=== PATIENT | female | born 1980 ===

== ENCOUNTER 2017-01-31 17:55 | Emergency (ER) | payer OTHER ==
[2017-01-31 18:13] VITALS: PULSE 80; BMI 23.6
[2017-01-31 18:58] LABS: RBC URINE < 1 /hpf (0-3); URINE BILIRUBIN NEGATIVE (NEGATIVE); URINE BLOOD NEGATIVE (NEGATIVE); URINE COLOR Yellow (YELLOW); URINE GLUCOSE (UA) NORMAL (Normal); URINE KETONE NEGATIVE (NEGATIVE); URINE LEUKOCYTE ESTERASE NEG Leu/uL (Negative); URINE PROTEIN NEGATIVE (NEGATIVE); URINE UROBILINOGEN NORMAL mg/dL (0.2-1.0); WBC URINE 1 /hpf (0-5)
--- NOTE | 2017-01-31 19:50 | C.PDOC ---
History Of Present Illness A 37 y/o female c/o headache for 3 months. Pt notes having vertigo yesterday. Pt reports nausea and palpitations but denies fever, chills, head trauma, visual changes, photophobia, or any other complaints. Time Seen by Provider: 01/31/17 19:40 Chief Complaint (Nursing): Headache History Per: Patient History/Exam Limitations: no limitations Onset/Duration Of Symptoms: Days Current Symptoms Are (Timing): Still Present Severity: Mild Associated Symptoms: Nausea, Other (Vertigo). denies: Photophobia, Blurred Vision Recent travel outside of the [place]: No Additional History Per: Patient Past Medical History Reviewed: Historical Data, Nursing Documentation, Vital Signs Vital Signs: Last Vital Signs Temp 98.6 F 01/31/17 18:12 Pulse 80 01/31/17 18:12 Resp 18 01/31/17 18:12 BP 110/54 L 01/31/17 18:12 Pulse Ox 100 01/31/17 21:05 - Medical History PMH: Anemia, Migraine Surgical History: Appendectomy, Cholecystectomy Family History: States: Unknown Family Hx - Social History Hx Alcohol Use: No Hx Substance Use: No - Immunization History Hx Tetanus Toxoid Vaccination: No Hx Influenza Vaccination: No Hx Pneumococcal Vaccination: No Review Of Systems Except As Marked, All Systems Reviewed And Found Negative. Constitutional: Negative for: Fever, Chills, Other (Head trauma) Eyes: Negative for: Vision Change, Other (Photophobia) Cardiovascular: Positive for: Palpitations Gastrointestinal: Positive for: Nausea Neurological: Positive for: Headache, Other (V) Physical Exam - Physical Exam Appears: Non-toxic, No Acute Distress Skin: Warm, Dry Head: Atraumatic, Normacephalic Eye(s): bilateral: Other (lateral nystagmus) Oral Mucosa: Moist Throat: Normal, No Exudate Neck: Supple Chest: Symmetrical Cardiovascular: Rhythm Regular, No Murmur Respiratory: Normal Breath Sounds, No Accessory Muscle Use, No Rales, No Rhonchi , No Wheezing Gastrointestinal/Abdominal: Soft, No Tenderness Neurological/Psych: Oriented x3, Normal Speech, Normal Motor, Normal Sensation, Other (No focal deficit) ED Course And Treatment - Laboratory Results Result Diagrams: 01/31/17 19:59 01/31/17 19:59 ECG: Interpreted By Me, Viewed By Me ECG Rhythm: Sinus Rhythm ECG Interpretation: Normal, No Acute Changes Interpretation Of ECG: NSR, normal tracings. Rate From EC O2 Sat by Pulse Oximetry: 100 (RA) Pulse Ox Interpretation: Normal - CT Scan/US CT Head w/o contrast Other Rad Studies (CT/US): Interpreted By Me, Read By Radiologist CT/US Interpretation: EXAM: CT Head Without Intravenous Contrast. CLINICAL HISTORY: 37 years old, female; Signs and symptoms; Other: Vertigo; Additional info: Headache. TECHNIQUE: Axial computed tomography images of the head/brain without intravenous contrast. This CT exam. was performed using one or more of the following dose reduction techniques: automated exposure. control, adjustment of the mA and/or kV according to patient size, and/or use of iterative. reconstruction technique. EXAM DATE/TIME: Exam ordered 01/31/2017 7: 47 PM. COMPARISON: No relevant prior studies available. FINDINGS: Brain: Tiny calcification is noted in the right basal ganglia. No hemorrhage. No significant white. matter disease. No edema. Ventricles: Unremarkable. No ventriculomegaly. Bones/joints: Unremarkable. No acute fracture. Soft tissues : Unremarkable. Sinuses: There is an air-fluid level noted within the left maxillary sinus. Mucosal thickening is noted. in the right sphenoid sinus. Mastoid air cells: Unremarkable as visualized. No mastoid effusion. IMPRESSION : 1. Normal CT brain. 2 Acute left maxillary sinusitis. Chronic sinusitis of the right sphenoid Medical Decision Making Medical Decision Making: Impression: 37 y/o female c/o headache for 3 months Plans: CT Head, EKG, Toradol, Ativan, Antivert, IV fluids, reassess Disposition Counseled Patient/Family Regarding: Diagnosis - Disposition Referrals: [facility] at [facility] [Outside] Disposition: HOME/ ROUTINE Disposition Time: 20:47 Condition: STABLE Prescriptions: Amoxicillin [Amoxil 500 mg Cap] 500 mg PO TID #20 cap Meclizine [Antivert] 12.5 mg PO TID #20 tab Naproxen [Naprosyn Tab] 375 mg PO TIDPC #20 tab Instructions: Sinusitis (ED), Vertigo (ED), General Headache (ED) Forms: Gen Discharge Inst Japanese Print Language: UKRAINIAN - POA Present On Arrival: None - Clinical Impression Clinical Impression: Headache, Sinusitis, Vertigo - Scribe Statement The provider has reviewed the documentation as recorded by the Ludaibmaxwell morrissey All medical record entries made by the Ludaibmaxwell were at my direction and personally dictated by me. I have reviewed the chart and agree that the record accurately reflects my personal performance of the history, physical exam, medical decision making, and the department course for this patient. I have also personally directed, reviewed, and agree with the discharge instructions and disposition.
[2017-01-31 20:09] LABS: BASO # 0.1 K/uL (0.0-0.2); BASO % 1.1 % (0.0-2.0); EOS # 0.1 K/uL (0.0-0.7); EOS % 1.7 % (0.0-4.0); HEMATOCRIT 29.7 % (34.0-47.0); LYMPH # 2.2 K/uL (1.0-4.3); LYMPH % 37.9 % (20.0-40.0); MEAN CELL VOLUME 71.4 fL (81.0-99.0); MEAN CORPUSCULAR HEMOGLOBIN 22.4 pg (27.0-31.0); MEAN CORPUSCULAR HGB CONC 31.3 g/dL (33.0-37.0); MEAN PLATELET VOLUME 8.4 fL (7.2-11.7); MONO # 0.5 K/uL (0.0-0.8); MONO % 7.8 % (0.0-10.0); RED CELL DISTRIBUTION WIDTH 17.4 % (11.5-14.5); WHITE BLOOD COUNT 5.8 K/uL (4.8-10.8)
[2017-01-31 20:11] LABS: CHLORIDE 101 mmol/L (98-107)
[2017-01-31 20:12] LABS: POTASSIUM 3.7 mmol/L (3.6-5.2); SODIUM 136 mmol/L (132-148)
[2017-01-31 20:14] LABS: ALB/GLOB RATIO 1.3 (1.0-2.1); ALKALINE PHOSPHATASE 64 U/L (38-126); AST/SGOT 23 U/L (14-36); BILIRUBIN,TOTAL 0.9 mg/dL (0.2-1.3); CARBON DIOXIDE 27 mmol/L (22-30); GFR AFRICAN-AMERICAN > 60; TOTAL PROTEIN 7.2 g/dL (6.3-8.3)
[2017-01-31 20:15] LABS: ALT/SGPT 27 U/L (9-52); BLOOD UREA NITROGEN 13 mg/dL (7-17); GLUCOSE,RANDOM 85 mg/dL (65-105)
--- NOTE | 2017-01-31 20:43 | CT ---
EXAM: CT Head Without Intravenous Contrast CLINICAL HISTORY: 37 years old, female; Signs and symptoms; Other: Vertigo; Additional info: Headache TECHNIQUE: Axial computed tomography images of the head/brain without intravenous contrast. This CT exam was performed using one or more of the following dose reduction techniques: automated exposure control, adjustment of the mA and/or kV according to patient size, and/or use of iterative reconstruction technique. EXAM DATE/TIME: Exam ordered 01/31/2017 7:47 PM COMPARISON: No relevant prior studies available. FINDINGS: Brain: Tiny calcification is noted in the right basal ganglia. No hemorrhage. No significant white matter disease. No edema. Ventricles: Unremarkable. No ventriculomegaly. Bones/joints: Unremarkable. No acute fracture. Soft tissues: Unremarkable. Sinuses: There is an air-fluid level noted within the left maxillary sinus. Mucosal thickening is noted in the right sphenoid sinus. Mastoid air cells: Unremarkable as visualized. No mastoid effusion. IMPRESSION: 1. Normal CT brain 2 Acute left maxillary sinusitis. Chronic sinusitis of the right sphenoid
[2017-01-31] MEDS ORDERED: Amoxicillin-Clav 500-125 mg Tab PO ONE (21:10)
[2017-01-31 21:17] VITALS: BP 110/60; RESP 14; TEMP 98.5; O2SAT 98
--- NOTE | 2017-02-01 19:20 | CARD ---
APPROVED REPORT EKG Measurement Heart [id number] <Conclusion> Normal sinus rhythm Normal ECG
== END 2017-01-31 21:17 | disposition home or self-care (01) ==
LOC: C.ER 17:55
DX: J01.00 Acute maxillary sinusitis, unspecified (principal); J32.3 Chronic sphenoidal sinusitis
CPT/HCPCS: 70450; 80053; 81001; 82948; 84484; 84703; 85025; 93005; 96374; 96375; 99285; J1885; J2060

== ENCOUNTER 2017-03-13 23:21 | Emergency (ER) | payer SELFPAY ==
[2017-03-13 23:22] VITALS: BMI 23.6
[2017-03-13 23:39] VITALS: RESP 16
[2017-03-13] MEDS ORDERED: Sodium Chloride 0.9% 1,000 ML IV ONE (23:45)
[2017-03-13] MEDS ORDERED: Iohexol 240 (50 ml) PO ONE (23:46)
[2017-03-13 23:56] LABS: BASO # 0.1 K/uL (0.0-0.2); BASO % 1.3 % (0.0-2.0); EOS # 0.1 K/uL (0.0-0.7); EOS % 1.9 % (0.0-4.0); HEMOGLOBIN 9.8 g/dL (11.0-16.0); LYMPH # 2.5 K/uL (1.0-4.3); LYMPH % 39.4 % (20.0-40.0); MEAN CELL VOLUME 71.3 fL (81.0-99.0); MEAN CORPUSCULAR HEMOGLOBIN 22.1 pg (27.0-31.0); MEAN PLATELET VOLUME 8.4 fL (7.2-11.7); MONO # 0.6 K/uL (0.0-0.8); MONO % 9.5 % (0.0-10.0); NEUT # 3.1 K/uL (1.8-7.0); NEUT % 47.9 % (50.0-75.0); NRBC % 0.1 % (0.0-2.0); RBC 4.44 Mil/uL (3.80-5.20); RED CELL DISTRIBUTION WIDTH 16.9 % (11.5-14.5); WHITE BLOOD COUNT 6.4 K/uL (4.8-10.8)
[2017-03-13 23:59] LABS: HCG,QUALITATIVE URINE NEGATIVE (NEGATIVE)
[2017-03-14 00:02] LABS: SQUAMOUS EPITHIAL 12 /hpf (0-5); URINE BACTERIA MANY (<OCC); URINE BILIRUBIN 1+ (NEGATIVE); URINE BLOOD 3+ (NEGATIVE); URINE CLARITY Hazy (Clear); URINE COLOR Amber (YELLOW); URINE GLUCOSE (UA) NORMAL (Normal); URINE LEUKOCYTE ESTERASE 3+ Leu/uL (Negative); URINE NITRATE NEGATIVE (NEGATIVE); URINE PROTEIN 2+ mg/dL (NEGATIVE); URINE UROBILINOGEN NORMAL mg/dL (0.2-1.0)
[2017-03-14] MEDS ORDERED: Iohexol 240 (50 ml) ONE (00:02)
[2017-03-14] MEDS ORDERED: Sodium Chloride 0.9% 1,000 ML ONE (00:02)
--- NOTE | 2017-03-14 00:11 | C.PDOC ---
History Of Present Illness Patient is a 37 y/o female, with history of ovarian cyst, that presents to the ED for evaluation of severe lower abdominal pain associated with nausea, vomiting, and dysuria for the last 7 days. Otherwise, denies any diarrhea, hematuria, back pain, fever, chills, or any other associated symptoms at this time. Chief Complaint (Nursing): Abdominal Pain History Per: Patient History/Exam Limitations: no limitations Onset/Duration Of Symptoms: Days (7) Current Symptoms Are (Timing): Still Present Severity: Severe Location Of Pain/Discomfort: RLQ, LLQ Radiation Of Pain To:: None Quality Of Discomfort: "Pain" Associated Symptoms: Nausea, Vomiting, Urinary Symptoms (dysuria). denies: Fever, Chills, Diarrhea, Loss Of Appetite, Back Pain, Chest Pain, Constipation Exacerbating Factors: None Alleviating Factors: None Recent travel outside of the [place]: No Additional History Per: Patient Abnormal Vaginal Bleeding: No Past Medical History Reviewed: Historical Data, Nursing Documentation, Vital Signs Vital Signs: Last Vital Signs Temp 98.4 F 03/13/17 23:33 Pulse 75 03/13/17 23:33 Resp 16 03/13/17 23:33 BP 105/69 03/13/17 23:33 Pulse Ox 99 03/14/17 02:30 - Medical History PMH: Anemia, Migraine Surgical History: Appendectomy, Cholecystectomy Family History: States: Unknown Family Hx - Social History Hx Alcohol Use: No Hx Substance Use: No - Immunization History Hx Tetanus Toxoid Vaccination: No Hx Influenza Vaccination: No Hx Pneumococcal Vaccination: No Review Of Systems Except As Marked, All Systems Reviewed And Found Negative. Constitutional: Negative for: Fever, Chills Gastrointestinal: Positive for: Nausea, Vomiting, Abdominal Pain. Negative for : Diarrhea, Constipation, Hematemesis Genitourinary: Positive for: Dysuria. Negative for: Frequency, Incontinence, Hematuria Musculoskeletal: Negative for: Back Pain Physical Exam - Physical Exam Appears: Non-toxic, No Acute Distress Skin: Normal Color, Warm, Dry Head: Atraumatic, Normacephalic Eye(s): bilateral: Normal Inspection, EOMI Chest: Symmetrical Cardiovascular: Rhythm Regular, No Murmur Respiratory: Normal Breath Sounds, No Rales, No Rhonchi, No Wheezing Gastrointestinal/Abdominal: Soft, Tenderness (RLQ, LLQ), No Distention, No Guarding, No Rebound Extremity: Normal ROM Neurological/Psych: Oriented x3, Normal Speech, Normal Cognition ED Course And Treatment - Laboratory Results Result Diagrams: 03/13/17 23:53 03/13/17 23:53 O2 Sat by Pulse Oximetry: 99 (on RA) Pulse Ox Interpretation: Normal - CT Scan/US Abd & pelvis CT Other Rad Studies (CT/US): Read By Radiologist, Radiology Report Reviewed CT/US Interpretation: FINDINGS: Lower thorax: No acute findings. ABDOMEN: Liver: Small cyst in the dome of the right hepatic lobe. Gallbladder and bile ducts: Cholecystectomy. No ductal dilation. Pancreas: Unremarkable. No mass. No ductal dilation. Spleen: Unremarkable. No splenomegaly. Adrenals: Unremarkable. No mass. Kidneys and ureters: Small cyst in the upper pole left kidney. No hydronephrosis. Stomach and bowel: Moderate fecal retention in the right and transverse colon consistent with. constipation. Appendix: Not seen. PELVIS: Bladder: Unremarkable. No mass. Reproductive: Probable fibroid in the anterior uterus. ABDOMEN and PELVIS: Intraperitoneal space: Unremarkable. No free air. No significant fluid collection. Bones/joints: No acute fracture. No dislocation. Soft tissues: Unremarkable. Vasculature: Unremarkable. No abdominal aortic aneurysm. Lymph nodes: Unremarkable. No enlarged lymph nodes. IMPRESSION: Moderate fecal retention in the right and transverse colon consistent with constipation. Progress Note: Blood work, urinalysis, Abd & pelvis CT ordered and reviewed. Patient was treated with Iohexol, Toradol, and IV fluids in the ER. Disposition Counseled Patient/Family Regarding: Diagnosis - Disposition Referrals: [facility] [Outside] Disposition: HOME/ ROUTINE Disposition Time: 02:26 Condition: STABLE Prescriptions: Ciprofloxacin [Cipro] 1 tab PO BID #14 tab Phenazopyridine HCl [Pyridium] 200 mg PO TID #20 tablet Instructions: Urinary Tract Infection in Women (GEN), Abdominal Pain (ED), Uterine Fibroids (ED) Forms: Gen Discharge Inst Nepali Print Language: YI - POA Present On Arrival: None - Clinical Impression Clinical Impression: Abdominal pain, Urinary tract infection, Uterine fibroid - Scribe Statement The provider has reviewed the documentation as recorded by the Meaghan Pruitt All medical record entries made by the Ludaibmaxwell were at my direction and personally dictated by me. I have reviewed the chart and agree that the record accurately reflects my personal performance of the history, physical exam, medical decision making, and the department course for this patient. I have also personally directed, reviewed, and agree with the discharge instructions and disposition.
[2017-03-14 00:24] LABS: ALBUMIN 4.2 g/dL (3.5-5.0)
[2017-03-14 00:27] LABS: AST/SGOT 30 U/L (14-36); GFR AFRICAN-AMERICAN > 60; GFR NON-AFRICAN AMERICAN > 60
[2017-03-14 00:28] LABS: ALB/GLOB RATIO 1.1 (1.0-2.1); ALT/SGPT 33 U/L (9-52); BLOOD UREA NITROGEN 11 mg/dL (7-17); CALCIUM 9.2 mg/dl (8.6-10.4); LIPASE 125 U/L (23-300)
[2017-03-14] MEDS ORDERED: Iodixanol 320 MG/ML 100 ML BOTTLE IV ONE (01:09)
[2017-03-14] MEDS ORDERED: Ciprofloxacin 400mg/200ml D5W 400 MG/200 ML BAG IVPB STA (02:11)
[2017-03-14] MEDS ORDERED: Ciprofloxacin 400mg/200ml D5W 400 MG/200 ML BAG IVPB ONE (02:26)
[2017-03-14 04:21] VITALS: BP 97/62; PULSE 64; TEMP 98; O2SAT 100
--- NOTE | 2017-03-14 08:17 | CT ---
PROCEDURE: CT Abdomen and Pelvis with contrast HISTORY: lower abd pain/ tenderness COMPARISON: None. TECHNIQUE: Contrast dose: 100 mL Visipaque 320 Radiation dose: Total exam DLP = 279 mGy-cm. This CT exam was performed using one or more of the following dose reduction techniques: Automated exposure control, adjustment of the mA and/or kV according to patient size, and/or use of iterative reconstruction technique. FINDINGS: LOWER THORAX: Unremarkable. LIVER: Probable small benign cyst and/or hemangioma -posterior segment -right hepatic lobe- dome level. No ductal dilatation. GALLBLADDER AND BILE DUCTS: Cholecystectomy. No pathological dilated ducts PANCREAS: Unremarkable. No gross lesion or ductal dilatation. SPLEEN: Unremarkable. ADRENALS: Unremarkable. No mass. KIDNEYS AND URETERS: 5 mm left renal upper pole intra cortical hypodense lesion -probable cyst. No hydronephrosis. No suspicious-appearing mass. VASCULATURE: Unremarkable. No aortic aneurysm. BOWEL: Redundancy and ptosis with marked stool retention-transverse colon. No obstruction. No gross mural thickening. APPENDIX: Not definitively identified No gross pericecal inflammatory changes PERITONEUM: Unremarkable. No free fluid. No free air. LYMPH NODES: Unremarkable. No enlarged lymph nodes. BLADDER: Unremarkable. REPRODUCTIVE: Probable anterior posterior fibroids (axial series 3, image 137). BONES: No acute fracture. OTHER FINDINGS: None. IMPRESSION: Appendix not identified. No pericecal inflammatory changes Uterine fibroids - approximately 1 to 1.5 cm in size intramural to extramural of sub serosal in appearance mostly midline.This is an interval change in the initial [employer] report. Comments: Preliminary report provided by [employer]
== END 2017-03-14 04:39 | disposition home or self-care (01) ==
LOC: C.ER 23:21
DX: N39.0 Urinary tract infection, site not specified (principal); D25.9 Leiomyoma of uterus, unspecified; R10.31 Right lower quadrant pain
CPT/HCPCS: 74177; 80053; 81001; 83690; 84702; 84703; 85025; 87086; 96365; 96366; 96375; 99284; J0744; J1885; J2405; J7040; Q9966; Q9967

== ENCOUNTER 2017-03-15 00:45 | Emergency (ER) | payer SELFPAY ==
[2017-03-15 00:45] VITALS: BMI 23.6
[2017-03-15 01:48] LABS: SQUAMOUS EPITHIAL 3 /hpf (0-5); URINE AMORPHOUS SEDIMENT RARE /ul (<OCC); URINE BILIRUBIN NEGATIVE (NEGATIVE); URINE BLOOD NEGATIVE (NEGATIVE); URINE CLARITY Hazy (Clear); URINE COLOR Amber (YELLOW); URINE GLUCOSE (UA) NORMAL (Normal); URINE LEUKOCYTE ESTERASE NEG Leu/uL (Negative); URINE PROTEIN NEGATIVE (NEGATIVE)
[2017-03-15 02:05] LABS: URINE NITRATE NEGATIVE (NEGATIVE)
--- NOTE | 2017-03-15 03:38 | C.PDOC ---
History Of Present Illness 37 y/o female presents to ED for evaluation of lower abdominal pain radiating to right flank and lower back since yesterday morning. Pt reports associated nausea. Patient was seen yesterday, was diagnosed with UTI, and discharged home with prescriptions. Pt states her pain still persists despite taking prescribed medications. Otherwise, denies fever, vomiting, diarrhea, or urinary symptoms. Time Seen by Provider: 03/15/17 03:11 Chief Complaint (Nursing): Abdominal Pain History Per: Patient History/Exam Limitations: no limitations Onset/Duration Of Symptoms: Days (1) Current Symptoms Are (Timing): Still Present Location Of Pain/Discomfort: RLQ, LLQ Radiation Of Pain To:: Back, Flank Quality Of Discomfort: "Pain" Associated Symptoms: Nausea, Back Pain. denies: Fever, Chills, Vomiting, Diarrhea, Loss Of Appetite, Chest Pain, Constipation, Urinary Symptoms Exacerbating Factors: None Alleviating Factors: None Recent travel outside of the [place]: No Additional History Per: Patient Abnormal Vaginal Bleeding: No Past Medical History Reviewed: Historical Data, Nursing Documentation, Vital Signs Vital Signs: Last Vital Signs Temp 97.9 F 03/15/17 04:24 Pulse 53 L 03/15/17 04:24 Resp 18 03/15/17 04:24 BP 90/54 L 03/15/17 04:24 Pulse Ox 100 03/15/17 04:24 - Medical History PMH: Anemia, Migraine Surgical History: Appendectomy, Cholecystectomy Family History: States: Unknown Family Hx - Social History Hx Alcohol Use: No Hx Substance Use: No - Immunization History Hx Tetanus Toxoid Vaccination: No Hx Influenza Vaccination: No Hx Pneumococcal Vaccination: No Review Of Systems Except As Marked, All Systems Reviewed And Found Negative. Constitutional: Negative for: Fever, Chills Gastrointestinal: Positive for: Nausea, Abdominal Pain. Negative for: Vomiting , Diarrhea Genitourinary: Negative for: Dysuria, Frequency, Incontinence, Hematuria Musculoskeletal: Positive for: Back Pain Skin: Negative for: Rash, Bruising Neurological: Negative for: Weakness, Numbness Physical Exam - Physical Exam Appears: Non-toxic, No Acute Distress Skin: Normal Color, Warm, Dry Head: Atraumatic, Normacephalic Neck: Normal ROM, Supple Chest: Symmetrical Cardiovascular: Rhythm Regular, No Murmur Respiratory: Normal Breath Sounds, No Rales, No Rhonchi, No Wheezing Gastrointestinal/Abdominal: Soft, Tenderness (lower abdomen), No Guarding, No Rebound Back: CVA Tenderness (right), No Vertebral Tenderness, No Paraspinal Tenderness Extremity: Normal ROM Neurological/Psych: Oriented x3, Normal Speech, Normal Cognition ED Course And Treatment - Laboratory Results Result Diagrams: 03/15/17 04:00 03/15/17 04:00 O2 Sat by Pulse Oximetry: 100 Pulse Ox Interpretation: Normal Progress Note: Blood work, urinalysis ordered and reviewed. Patient was given IV fluids, Zofran, Toradol, and Rocephin. Medical Decision Making Medical Decision Makin the pt reports feeling better after rx. she is aware of her anemia. she appears well in no distress. vitals stable. ua improved will continue cipro. Disposition - Disposition Referrals: Jovita Xiao MD [Primary Care Provider] - Disposition Time: 05:24 Condition: IMPROVED Forms: Gen Discharge Inst Pakistani - Clinical Impression Clinical Impression: UTI (urinary tract infection) - Scribe Statement The provider has reviewed the documentation as recorded by the Ludaibmaxwell Pruitt All medical record entries made by the Ludaibmaxwell were at my direction and personally dictated by me. I have reviewed the chart and agree that the record accurately reflects my personal performance of the history, physical exam, medical decision making, and the department course for this patient. I have also personally directed, reviewed, and agree with the discharge instructions and disposition.
[2017-03-15] MEDS ORDERED: Sodium Chloride 0.9% 1,000 ML IV ONE (03:43)
[2017-03-15] MEDS ORDERED: cefTRIAXone IV 1 gm in Dextros 50 ML IVPB ONE (04:14)
[2017-03-15 04:16] LABS: BASO # 0.1 K/uL (0.0-0.2); BASO % 1.1 % (0.0-2.0); EOS # 0.2 K/uL (0.0-0.7); EOS % 2.9 % (0.0-4.0); HEMOGLOBIN 8.7 g/dL (11.0-16.0); LYMPH # 2.5 K/uL (1.0-4.3); MEAN CORPUSCULAR HEMOGLOBIN 22.1 pg (27.0-31.0); MEAN CORPUSCULAR HGB CONC 30.8 g/dL (33.0-37.0); MEAN PLATELET VOLUME 8.7 fL (7.2-11.7); MONO # 0.5 K/uL (0.0-0.8); MONO % 7.2 % (0.0-10.0); NEUT # 3.3 K/uL (1.8-7.0); NEUT % 50.8 % (50.0-75.0); RBC 3.91 Mil/uL (3.80-5.20); RED CELL DISTRIBUTION WIDTH 16.8 % (11.5-14.5); WHITE BLOOD COUNT 6.5 K/uL (4.8-10.8)
[2017-03-15 04:28] VITALS: RESP 18
[2017-03-15 04:31] LABS: ALBUMIN 3.5 g/dL (3.5-5.0)
[2017-03-15 04:34] LABS: GFR AFRICAN-AMERICAN > 60; GFR NON-AFRICAN AMERICAN > 60
[2017-03-15 04:35] LABS: ALB/GLOB RATIO 1.1 (1.0-2.1); ALT/SGPT 41 U/L (9-52); AST/SGOT 33 U/L (14-36); BLOOD UREA NITROGEN 13 mg/dL (7-17); CALCIUM 8.5 mg/dl (8.6-10.4)
[2017-03-15 06:09] VITALS: BP 96/60; PULSE 65; TEMP 97.7; O2SAT 99
== END 2017-03-15 06:34 | disposition home or self-care (01) ==
LOC: C.ER 00:45 → SUPCPDRO 00:45 → C.ER 06:34
DX: N39.0 Urinary tract infection, site not specified (principal)
CPT/HCPCS: 80053; 81001; 85025; 87086; 96361; 96374; 96375; 99285; J0696; J1885; J2405; J7040

== ENCOUNTER 2017-03-23 22:55 | Emergency (ER) | payer SELFPAY ==
[2017-03-23 22:55] VITALS: BMI 23.6
[2017-03-23] MEDS ORDERED: Sodium Chloride 0.9% 1,000 ML IV ONE (23:14)
[2017-03-23] MEDS ORDERED: Sodium Chloride 0.9% 1,000 ML ONE (23:26)
--- NOTE | 2017-03-23 23:27 | C.PDOC ---
History Of Present Illness 37 year old female who presents to the ER with a complaint of lower abdominal pain for the past week. Patient reports she was seen here in the ER 1 week ago for a UTI. pt states she also developed white vaginal d/c after taking antibiotics. pt states sexiually active with . Denies fever, nausea, or vomiting, diarrhea. 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 Time Seen by Provider: 03/23/17 23:09 Chief Complaint (Nursing): Abdominal Pain History Per: Patient History/Exam Limitations: no limitations Onset/Duration Of Symptoms: Days (7) Current Symptoms Are (Timing): Still Present Location Of Pain/Discomfort: Suprapubic Radiation Of Pain To:: None Quality Of Discomfort: Unable To Describe Associated Symptoms: denies: Fever, Chills, Nausea, Vomiting Exacerbating Factors: None Alleviating Factors: None Recent travel outside of the [place]: No Abnormal Vaginal Bleeding: No Past Medical History Reviewed: Historical Data, Nursing Documentation, Vital Signs Vital Signs: Last Vital Signs Temp 98.3 F 03/24/17 03:15 Pulse 64 03/24/17 03:15 Resp 16 03/24/17 03:15 BP 95/42 L 03/24/17 03:15 Pulse Ox 96 03/24/17 06:44 - Medical History PMH: Anemia, Migraine Surgical History: Appendectomy, Cholecystectomy Family History: States: Unknown Family Hx - Social History Hx Alcohol Use: No Hx Substance Use: No - Immunization History Hx Tetanus Toxoid Vaccination: No Hx Influenza Vaccination: No Hx Pneumococcal Vaccination: No Review Of Systems Constitutional: Negative for: Fever, Chills Gastrointestinal: Positive for: Abdominal Pain. Negative for: Nausea, Vomiting Physical Exam - Physical Exam Appears: Non-toxic, No Acute Distress Skin: Normal Color, Warm, Dry Head: Atraumatic, Normacephalic Oral Mucosa: Moist Chest: Symmetrical, No Tenderness Cardiovascular: Rhythm Regular, No Murmur Respiratory: Normal Breath Sounds, No Rales, No Rhonchi, No Wheezing Gastrointestinal/Abdominal: Soft, Tenderness (Mild suprapubic), No Guarding, No Rebound Pelvic: Normal External Exam, No Vaginal Bleeding, Vaginal Discharge ((+)thick white d/c), No Cervical Motion Tenderness, No Cervix Open, No Adnexal Tenderness Neurological/Psych: Oriented x3, Normal Speech, Normal Cognition ED Course And Treatment - Laboratory Results Result Diagrams: 03/23/17 23:26 03/23/17 23:26 O2 Sat by Pulse Oximetry: 96 (Room air) Pulse Ox Interpretation: Normal Progress Note: Blood work and urinalysis ordered. IV fluids administered. Medical Decision Making Medical Decision Making: lower abd pain, consider fibroids, uti, less likely appendicitis. noted previous 2 ed visits both with neg urine culture. plan: labs urine pain control, reassess. 100: pt with persistent pain, ct with IV contrast added, as previous study was non contrast. labs: no leukocytosis, h/h baseline, ua, with trace luekoctyes and squamous cells. culture sent. additional protonix and zofran given 255: pt reassesed: states pain resolved. pt hemodynamically stable, afebrile, no leukocytosis. urine culture sent, trace leuks in er, with only 8wbc. uti less likely. chlyamidia/gc sent. pelvic shows thick white d/c, suspect marisa. advise otc medications. Disposition - Disposition Referrals: Yoshi Hernandez [Staff Provider] - [facility] [Outside] [facility] [Outside] [facility] [Outside] Disposition: HOME/ ROUTINE Disposition Time: 02:56 Condition: STABLE Additional Instructions: please follow up with your doctor/clinic. you will be notified if you culture results return positive. Prescriptions: Naproxen 500 mg PO BID PRN #14 tab PRN Reason: Pain, Mild (1-3) Instructions: Uterine Fibroids (ED), Acute Abdominal Pain (ED) Print Language: TOGOLESE - Clinical Impression Clinical Impression: Abdominal pain - Scribe Statement The provider has reviewed the documentation as recorded by the Scribmaxwell Sigala All medical record entries made by the Ludaibmaxwell were at my direction and personally dictated by me. I have reviewed the chart and agree that the record accurately reflects my personal performance of the history, physical exam, medical decision making, and the department course for this patient. I have also personally directed, reviewed, and agree with the discharge instructions and disposition.
[2017-03-23 23:31] LABS: BASO # 0.1 K/uL (0.0-0.2); BASO % 1.1 % (0.0-2.0); EOS # 0.2 K/uL (0.0-0.7); EOS % 2.7 % (0.0-4.0); HEMOGLOBIN 9.5 g/dL (11.0-16.0); LYMPH # 2.7 K/uL (1.0-4.3); MEAN CELL VOLUME 71.9 fL (81.0-99.0); MEAN CORPUSCULAR HEMOGLOBIN 22.4 pg (27.0-31.0); MEAN CORPUSCULAR HGB CONC 31.2 g/dL (33.0-37.0); MEAN PLATELET VOLUME 8.9 fL (7.2-11.7); MONO # 0.5 K/uL (0.0-0.8); MONO % 6.9 % (0.0-10.0); NEUT # 3.8 K/uL (1.8-7.0); NEUT % 52.3 % (50.0-75.0); RBC 4.22 Mil/uL (3.80-5.20); RED CELL DISTRIBUTION WIDTH 16.6 % (11.5-14.5); WHITE BLOOD COUNT 7.3 K/uL (4.8-10.8)
[2017-03-23 23:37] LABS: PROTHROMBIN TIME 11.4 SECONDS (9.7-12.2)
[2017-03-23 23:41] LABS: ALBUMIN 4.1 g/dL (3.5-5.0)
[2017-03-23 23:42] LABS: SQUAMOUS EPITHIAL 9 /hpf (0-5); URINE BILIRUBIN NEGATIVE (NEGATIVE); URINE BLOOD NEGATIVE (NEGATIVE); URINE CLARITY Clear (Clear); URINE COLOR Yellow (YELLOW); URINE GLUCOSE (UA) NORMAL (Normal); URINE LEUKOCYTE ESTERASE TRACE Leu/uL (Negative); URINE NITRATE NEGATIVE (NEGATIVE); URINE PROTEIN NEGATIVE (NEGATIVE); URINE UROBILINOGEN NORMAL mg/dL (0.2-1.0)
[2017-03-23 23:43] LABS: GFR AFRICAN-AMERICAN > 60; GFR NON-AFRICAN AMERICAN > 60
[2017-03-23 23:44] LABS: ALB/GLOB RATIO 1.2 (1.0-2.1); ALT/SGPT 31 U/L (9-52); AST/SGOT 23 U/L (14-36); BLOOD UREA NITROGEN 18 mg/dL (7-17); CALCIUM 8.2 mg/dl (8.6-10.4); LIPASE 186 U/L (23-300)
[2017-03-24 01:31] VITALS: RESP 16
[2017-03-24] MEDS ORDERED: Sodium Chloride 0.9% 1,000 ML IV ONE (01:31)
[2017-03-24] MEDS ORDERED: Iodixanol 320 MG/ML 100 ML BOTTLE IV ONE (01:33)
[2017-03-24] MEDS ORDERED: Sodium Chloride 0.9% 1,000 ML ONE (01:39)
[2017-03-24 03:18] VITALS: BP 95/42; PULSE 64; TEMP 98.3
[2017-03-24 06:44] VITALS: O2SAT 96
--- NOTE | 2017-03-24 13:50 | CT ---
PROCEDURE: CT abdomen and pelvis dated 03/24/2017. HISTORY: Lower abdominal pain. Note that the scanned nurse's note indicates prior x 3 and appendectomy. COMPARISON: Comparison made with prior CT scan abdomen pelvis 03/14/2017 TECHNIQUE: Contiguous axial images of the abdomen and pelvis performed following intravenous injection of approximately 100 cc Visipaque 320 contrast material. Additional 2 dimensional sagittal and coronal reformats provided save. Radiation dose: Total exam DLP = 374.74 mGy-cm. This CT exam was performed using one or more of the following dose reduction techniques: Automated exposure control, adjustment of the mA and/or kV according to patient size, and/or use of iterative reconstruction technique. FINDINGS: LOWER THORAX: The lung bases clear. No infiltrate effusion or basilar pneumothorax. Heart size normal. Tiny hiatal hernia LIVER: The liver exhibits normal size measuring nearly 17 cm in CC dimension. Minor central intrahepatic biliary ductal dilatation. No obvious hepatic masses or collections. Portal and splenic veins are opacified. GALLBLADDER AND BILE DUCTS: Status post cholecystectomy with metallic clips again seen in the gallbladder fossa. . There is persistent dilatation of the common bile PANCREAS: No obvious pancreatic masses collections or calcifications seen. SPLEEN: Spleen exhibits normal size and attenuation pattern without mass collection or calcification. ADRENALS: No adrenal lesions. . KIDNEYS AND URETERS: Kidneys demonstrate symmetric nephrograms. No evidence of nephrolithiasis or hydronephrosis. BLADDER: Urinary bladder appears incompletely distended. No evidence of intraluminal urinary bladder calculi. . Suspect left ovarian cystic changes. Followup ultrasound could be performed confirm. . REPRODUCTIVE: Re- demonstrated are what could represent anterior uterine scarring or possibly uterine fibroids best appreciated on sagittal on and coronal sequences. Prominent endometrial canal. Suspect small bilateral involuting ovarian cystic changes and a small amount of free fluid within the cul de sac.. .Pelvic ultrasound followup could be performed further evaluation. APPENDIX: The appendix not visualized consistent with this patient's history of prior appendectomy. BOWEL: Evaluation of the bowel is limited due to the lack of oral contrast material. The the stomach is distended with food debris liquid and air. Visualized loops of small bowel exhibit relatively normal contour and caliber. No evidence of acute mechanical small bowel obstruction. . The suspect fecalized content within the small bowel suggesting stasis. Moderate moderate-large amount of stool throughout the large bowel consistent with constipation. . No definitive evidence of definitive mural wall thickening. PERITONEUM: There appears to be a small amount of free fluid within the left aspect of the pelvis. LYMPH NODES: Unremarkable. No enlarged lymph nodes. VASCULATURE: Unremarkable. No aortic aneurysm. BONES: Minor multilevel degenerative spondylosis of the lower thoracic and lumbar spine. Re- demonstrated is a small rounded lucency with thin sclerotic rim in the left posterior superior aspect of the L1 segment of uncertain etiology though unchanged from prior study. Followup interval could be performed to assess stability. OTHER FINDINGS: None. IMPRESSION: Status post cholecystectomy with dilatation of the common bile duct. Mild central intrahepatic biliary ductal dilatation. Moderate to large amount of stool seen within the colon suggesting fecal retention/constipation. Questionable anterior uterine scarring changes and/or fibroids. Prominent endometrial canal. Suspect small bilateral involuting ovarian cystic changes and a small amount of free fluid within the cul de sac. See above discussion for additional details, findings and recommendations.
== END 2017-03-24 03:27 | disposition home or self-care (01) ==
LOC: C.ER 22:55
DX: R10.30 Lower abdominal pain, unspecified (principal)
CPT/HCPCS: 74177; 80053; 81001; 83690; 84703; 85025; 85610; 85730; 87086; 87491; 87591; 96360; 96361; 96374; 96375; 99285; C9113; J1885; J2270; J2405; J7040; Q9967

== ENCOUNTER 2017-04-22 23:52 | Emergency (ER) | payer OTHER ==
[2017-04-22 23:52] VITALS: BMI 23.6
[2017-04-23] MEDS ORDERED: Sodium Chloride 0.9% 1,000 ML IV STA (01:33)
--- NOTE | 2017-04-23 01:49 | C.PDOC ---
History Of Present Illness 37 year old female who presents to the ER with a complaint of a generalized headache, lightheadedness, dizziness, nausea, and pain to her left shoulder that radiates to her chest since this morning. Patient reports she is a house and has not been doing any heavy lifting lately. Patient has a PMHx of uterine fibroids and is scheduled for a hysterectomy in 1 month. Denies vomiting , abdominal pain, or SOB. Chief Complaint (Nursing): Chest Pain History Per: Patient History/Exam Limitations: no limitations Onset/Duration Of Symptoms: Hrs Current Symptoms Are (Timing): Still Present Associated Symptoms: Nausea. denies: Dyspnea, Diaphoresis, Syncope Modifying Factors: None Exacerbating Factors: None Alleviating Factors: None Recent travel outside of the [place]: No Past Medical History Reviewed: Historical Data, Nursing Documentation, Vital Signs Vital Signs: Last Vital Signs Temp 97.2 F L 04/23/17 04:03 Pulse 74 04/23/17 04:03 Resp 22 04/23/17 04:03 BP 97/62 L 04/23/17 04:03 Pulse Ox 99 04/23/17 04:04 - Medical History PMH: Anemia, Migraine Surgical History: Appendectomy, Cholecystectomy Family History: States: Unknown Family Hx - Social History Hx Alcohol Use: No Hx Substance Use: No - Immunization History Hx Tetanus Toxoid Vaccination: No Hx Influenza Vaccination: No Hx Pneumococcal Vaccination: No Review Of Systems Constitutional: Negative for: Fever, Chills Cardiovascular: Positive for: Chest Pain, Light Headedness. Negative for: Palpitations Respiratory: Negative for: Cough, Shortness of Breath Gastrointestinal: Positive for: Nausea. Negative for: Vomiting, Abdominal Pain Musculoskeletal: Positive for: Shoulder Pain Neurological: Positive for: Headache, Dizziness Physical Exam - Physical Exam Appears: Non-toxic Skin: Normal Color, Warm, Dry Head: Atraumatic, Normacephalic Oral Mucosa: Moist Neck: Normal, Supple Chest: Symmetrical, Tenderness (Left anterior) Cardiovascular: Rhythm Regular, No Murmur Respiratory: Normal Breath Sounds, No Rales, No Rhonchi, No Wheezing Gastrointestinal/Abdominal: Soft, No Tenderness Extremity: Normal ROM (x4), Tenderness (Left shoulder) Neurological/Psych: Oriented x3, Normal Speech, Normal Cognition ED Course And Treatment - Laboratory Results Result Diagrams: 04/23/17 02:07 04/23/17 02:07 ECG: Interpreted By Me, Viewed By Dc ECG Rhythm: Sinus Rhythm ECG Interpretation: Normal Rate From EC O2 Sat by Pulse Oximetry: 99 - Radiology CXR: Interpreted by Me CXR Interpretation: Yes: No Acute Disease - CT Scan/US CT head Other Rad Studies (CT/US): Read By Radiologist, Radiology Report Reviewed CT/US Interpretation: EXAM: CT Head Without Intravenous Contrast. CLINICAL HISTORY: 37 years old, female; Pain; Headache; Patient HX: 01-31-17. TECHNIQUE: Axial computed tomography images of the head/brain without intravenous contrast. All CT scans at. this facility use one or more dose reduction techniques, viz.: automated exposure control; ma/kV. adjustment per patient size (including targeted exams where dose is matched to indication; i.e. head); . or iterative reconstruction technique. COMPARISON: A previous report dated 01/31/2017 is available for comparison. FINDINGS: Brain: Unremarkable. No hemorrhage. No significant white matter disease. No edema. Ventricles: Unremarkable. No ventriculomegaly. Bones/joints: Unremarkable. No acute fracture. Soft tissues: Unremarkable. Sinuses: Unremarkable as visualized. No acute sinusitis. Mastoid air cells: Unremarkable as visualized. No mastoid effusion. IMPRESSION: Normal head/brain CT. Thank you for allowing us to participate in the care of your patient. Dictated and Authenticated by: Jennifer Hernández MD. 04/23/2017 3:54 AM Eastern Time ([place] & [place]) Progress Note: Blood work and urinalysis ordered. Reglan and IV fluids administered. On re-evaluation patient feels better, no neuro deficit, ambulating in ED, no vomiting. Patient is stable to be d/c home with PMD follow up. Disposition - Disposition Referrals: Non [facility] Provider, [Primary Care Provider] - Disposition: HOME/ ROUTINE Disposition Time: 04:01 Condition: STABLE Additional Instructions: Follow up with PMD and OBGYN within 1-2 days. return to ED if feel worse. Prescriptions: Acetaminophen/Butalbital/Caf [Fioricet] 1 tab PO TID PRN #20 tab PRN Reason: Headache Ibuprofen [Motrin Tab] 600 mg PO Q8 #30 tab Metoclopramide [Reglan] 1 tab PO TID PRN #25 tab PRN Reason: Nausea/Vomiting Instructions: Acute Headache (ED), Chest Wall Pain (ED) Forms: [facility] (Palestinian) - Clinical Impression Clinical Impression: Headache, Chest wall pain - Scribe Statement The provider has reviewed the documentation as recorded by the Scribe Eyad Sigala All medical record entries made by the Scribe were at my direction and personally dictated by me. I have reviewed the chart and agree that the record accurately reflects my personal performance of the history, physical exam, medical decision making, and the department course for this patient. I have also personally directed, reviewed, and agree with the discharge instructions and disposition.
[2017-04-23] MEDS ORDERED: Sodium Chloride 0.9% 100 ML ONE (02:01)
[2017-04-23] MEDS ORDERED: Sodium Chloride 0.9% 1,000 ML ONE (02:01)
[2017-04-23 02:12] LABS: BASO # 0.1 K/uL (0.0-0.2); BASO % 1.1 % (0.0-2.0); EOS # 0.3 K/uL (0.0-0.7); EOS % 4.5 % (0.0-4.0); HEMATOCRIT 30.1 % (34.0-47.0); LYMPH # 2.6 K/uL (1.0-4.3); LYMPH % 36.4 % (20.0-40.0); MEAN CELL VOLUME 71.4 fL (81.0-99.0); MEAN CORPUSCULAR HEMOGLOBIN 22.2 pg (27.0-31.0); MEAN CORPUSCULAR HGB CONC 31.1 g/dL (33.0-37.0); MEAN PLATELET VOLUME 8.6 fL (7.2-11.7); MONO # 0.7 K/uL (0.0-0.8); MONO % 9.4 % (0.0-10.0); NRBC % 0.1 % (0.0-2.0); RED CELL DISTRIBUTION WIDTH 16.5 % (11.5-14.5); WHITE BLOOD COUNT 7.1 K/uL (4.8-10.8)
[2017-04-23 02:15] LABS: RBC URINE 1 /hpf (0-3); URINE BACTERIA RARE (<OCC); URINE BILIRUBIN NEGATIVE (NEGATIVE); URINE BLOOD NEGATIVE (NEGATIVE); URINE COLOR Yellow (YELLOW); URINE GLUCOSE (UA) NORMAL (Normal); URINE KETONE NEGATIVE (NEGATIVE); URINE LEUKOCYTE ESTERASE NEG Leu/uL (Negative); URINE PROTEIN NEGATIVE (NEGATIVE); URINE UROBILINOGEN NORMAL mg/dL (0.2-1.0); WBC URINE 1 /hpf (0-5)
[2017-04-23 02:19] LABS: CHLORIDE 103 mmol/L (98-107); POTASSIUM 3.5 mmol/L (3.6-5.2); SODIUM 140 mmol/L (132-148)
[2017-04-23 02:21] LABS: ALB/GLOB RATIO 1.1 (1.0-2.1); ALKALINE PHOSPHATASE 67 U/L (38-126); AST/SGOT 24 U/L (14-36); BILIRUBIN,TOTAL 1.1 mg/dL (0.2-1.3); CARBON DIOXIDE 24 mmol/L (22-30); GFR AFRICAN-AMERICAN > 60; TOTAL PROTEIN 7.2 g/dL (6.3-8.3)
[2017-04-23 02:22] LABS: ALT/SGPT 27 U/L (9-52); BLOOD UREA NITROGEN 13 mg/dL (7-17); CALCIUM 9.2 mg/dl (8.6-10.4); GLUCOSE,RANDOM 97 mg/dL (65-105)
[2017-04-23 02:24] LABS: INR 1.1; PARTIAL THROMBOPLASTIN TIME 28 SECONDS (21-34)
[2017-04-23 04:05] VITALS: PULSE 74
[2017-04-23 05:22] VITALS: BP 136/74; RESP 18; TEMP 97.3; O2SAT 96
--- NOTE | 2017-04-23 08:10 | CT ---
PROCEDURE: CT HEAD WITHOUT CONTRAST. HISTORY: headache COMPARISON: Unenhanced head CT 01/31/2017. TECHNIQUE: Axial computed tomography images were obtained through the head/brain without intravenous contrast. Radiation dose: Total exam DLP = 882 mGy-cm. This CT exam was performed using one or more of the following dose reduction techniques: Automated exposure control, adjustment of the mA and/or kV according to patient size, and/or use of iterative reconstruction technique. FINDINGS: HEMORRHAGE: No intracranial hemorrhage. BRAIN: Hunt-white matter density appears normal above and below the tentorium including throughout the brainstem with normal differentiation appreciated once again. There is no mass effect or parenchymal edema appreciated. No suspicious extra-axial collection identified. VENTRICLES: Unremarkable. No hydrocephalus. CALVARIUM: Unremarkable. PARANASAL SINUSES: Unremarkable as visualized. No significant inflammatory changes. MASTOID AIR CELLS: Unremarkable as visualized. No inflammatory changes. OTHER FINDINGS: None. IMPRESSION: Unremarkable unenhanced head CT with no significant interval change compared to prior head CT dated 01/31/2017.
--- NOTE | 2017-04-23 10:31 | RAD ---
HISTORY: left shoulder pain, radiating to chest COMPARISON: No prior. FINDINGS: LUNGS: No active pulmonary disease. PLEURA: No significant pleural effusion identified, no pneumothorax apparent. CARDIOVASCULAR: Normal. OSSEOUS STRUCTURES: No significant abnormalities. VISUALIZED UPPER ABDOMEN: Normal. OTHER FINDINGS: None. IMPRESSION: No acute cardiopulmonary disease identified.
--- NOTE | 2017-04-23 20:14 | CARD ---
APPROVED REPORT EKG Measurement Heart [id number] <Conclusion> Normal sinus rhythm Normal ECG
== END 2017-04-23 04:45 | disposition home or self-care (01) ==
LOC: SUPCPDRO 23:52 → C.ER 23:52
DX: R51 Headache (principal); R07.89 Other chest pain
CPT/HCPCS: 70450; 71010; 80053; 81001; 82550; 82553; 84484; 84703; 85025; 85378; 85610; 85730; 93005; 96365; 99285; J2765; J7040

== ENCOUNTER 2017-05-14 17:42 | Emergency (ER) | payer OTHER ==
[2017-05-14 17:42] VITALS: BMI 23.6
[2017-05-14 18:44] LABS: URINE BACTERIA RARE (<OCC); URINE BILIRUBIN NEGATIVE (NEGATIVE); URINE BLOOD NEGATIVE (NEGATIVE); URINE COLOR Straw (YELLOW); URINE GLUCOSE (UA) NORMAL (Normal); URINE KETONE TRACE mg/dL (NEGATIVE); URINE LEUKOCYTE ESTERASE NEG Leu/uL (Negative); URINE PROTEIN NEGATIVE (NEGATIVE); URINE UROBILINOGEN NORMAL mg/dL (0.2-1.0); WBC URINE < 1 /hpf (0-5)
[2017-05-14 19:13] LABS: BASO # 0.1 K/uL (0.0-0.2); BASO % 1.2 % (0.0-2.0); EOS # 0.1 K/uL (0.0-0.7); EOS % 1.5 % (0.0-4.0); HEMATOCRIT 29.6 % (34.0-47.0); LYMPH # 2.2 K/uL (1.0-4.3); LYMPH % 34.2 % (20.0-40.0); MEAN CELL VOLUME 71.9 fL (81.0-99.0); MEAN CORPUSCULAR HEMOGLOBIN 22.9 pg (27.0-31.0); MEAN CORPUSCULAR HGB CONC 31.8 g/dL (33.0-37.0); MEAN PLATELET VOLUME 8.5 fL (7.2-11.7); MONO # 0.4 K/uL (0.0-0.8); RED CELL DISTRIBUTION WIDTH 17.1 % (11.5-14.5); WHITE BLOOD COUNT 6.4 K/uL (4.8-10.8)
[2017-05-14 19:21] LABS: CHLORIDE 105 mmol/L (98-107); POTASSIUM 3.8 mmol/L (3.6-5.2); SODIUM 139 mmol/L (132-148)
[2017-05-14 19:24] LABS: ALB/GLOB RATIO 1.3 (1.0-2.1); ALKALINE PHOSPHATASE 53 U/L (38-126); ALT/SGPT 31 U/L (9-52); AST/SGOT 22 U/L (14-36); BILIRUBIN,TOTAL 1.2 mg/dL (0.2-1.3); BLOOD UREA NITROGEN 10 mg/dL (7-17); CALCIUM 9.1 mg/dl (8.6-10.4); CARBON DIOXIDE 23 mmol/L (22-30); GFR AFRICAN-AMERICAN > 60; GLUCOSE,RANDOM 86 mg/dL (65-105); TOTAL PROTEIN 7.4 g/dL (6.3-8.3)
[2017-05-14 19:25] LABS: INR 1.1
--- NOTE | 2017-05-14 19:55 | C.PDOC ---
History Of Present Illness 37 y/o female, whose PMHx includes Fibroids, presents to the ED for evaluation of abdominal pain which has been worsening for the past week. Patient states her pain radiates to her lower back and is associated with some nausea and vomiting. She denies fever, chills, dysuria. Time Seen by Provider: 05/14/17 18:49 Chief Complaint (Nursing): Abdominal Pain History Per: Patient History/Exam Limitations: no limitations Onset/Duration Of Symptoms: Days (1 week ) Current Symptoms Are (Timing): Worse Location Of Pain/Discomfort: Diffuse Radiation Of Pain To:: Back (lower) Quality Of Discomfort: "Pain" Associated Symptoms: Nausea, Vomiting. denies: Fever, Chills, Urinary Symptoms (dysuria ) Additional History Per: Patient Past Medical History Reviewed: Historical Data, Nursing Documentation, Vital Signs Vital Signs: Last Vital Signs Temp 97.5 F L 05/15/17 02:10 Pulse 77 05/15/17 02:10 Resp 16 05/15/17 02:10 BP 101/66 05/15/17 02:10 Pulse Ox 98 05/15/17 02:10 - Medical History PMH: Anemia, Migraine Surgical History: Appendectomy, Cholecystectomy Family History: States: Unknown Family Hx - Social History Hx Alcohol Use: No Hx Substance Use: No - Immunization History Hx Tetanus Toxoid Vaccination: No Hx Influenza Vaccination: No Hx Pneumococcal Vaccination: No Review Of Systems Constitutional: Negative for: Fever, Chills Gastrointestinal: Positive for: Nausea, Vomiting, Abdominal Pain Genitourinary: Negative for: Dysuria Musculoskeletal: Positive for: Back Pain (lower) Physical Exam - Physical Exam Appears: Non-toxic, No Acute Distress Skin: Normal Color, Warm, Dry Head: Atraumatic, Normacephalic Eye(s): bilateral: Normal Inspection Oral Mucosa: Moist Neck: Supple Chest: Symmetrical, No Deformity, No Tenderness Cardiovascular: Rhythm Regular, No Murmur Respiratory: Normal Breath Sounds, No Rales, No Rhonchi, No Wheezing Gastrointestinal/Abdominal: Tenderness (suprapubic ), No Guarding, No Rebound Back: Normal Inspection Extremity: Normal ROM, Capillary Refill (less than 2 seconds ) Neurological/Psych: Oriented x3, Normal Speech, Normal Cognition Gait: Steady ED Course And Treatment - Laboratory Results Result Diagrams: 05/14/17 19:10 05/14/17 19:10 O2 Sat by Pulse Oximetry: 100 (on RA) Pulse Ox Interpretation: Normal Medical Decision Making Medical Decision Making: Impression: 37y/o female with abdominal pain Plan: * CT A/P * labs * Toradol IV * reassess and disposition Progress: CT A/P and labs ordered and reviewed. Patient received Toradol IV. 23:50: Call placed to Dr. Chow's answering service. Awaiting callback. 100: endorsed to dr argueta, haily and final dispo Disposition - Disposition Referrals: [facility] [Outside] [facility] [Outside] Ashish Reina MD [Staff Provider] - Disposition: HOME/ ROUTINE Disposition Time: 01:00 Condition: GOOD Additional Instructions: please follow up with your doctor/manager retirement. return to er with worsening symptoms or concern. Instructions: Acute Abdominal Pain (ED) Forms: [email or web address] (Guyanese) Print Language: CITIZEN OF [place] - Clinical Impression Clinical Impression: Abdominal pain - Scribe Statement The provider has reviewed the documentation as recorded by the Scribe (Catherine Pruitt) Provider Attestation: All medical record entries made by the Scribe were at my direction and personally dictated by me. I have reviewed the chart and agree that the record accurately reflects my personal performance of the history, physical exam, medical decision making, and the department course for this patient. I have also personally directed, reviewed, and agree with the discharge instructions and disposition.
[2017-05-14] MEDS ORDERED: Iodixanol 320 MG/ML 100 ML BOTTLE IV ONE (21:00)
[2017-05-14] MEDS ORDERED: Morphine 4 MG/ML VIAL ONE (22:06)
--- NOTE | 2017-05-14 23:10 | CT ---
EXAM: CT Abdomen and Pelvis With Intravenous Contrast CLINICAL HISTORY: 37 years old, female; Pain; Abdominal pain; Flank; Lower; Additional info: Lower abd pain TECHNIQUE: Axial computed tomography images of the abdomen and pelvis with intravenous contrast. All CT scans at this facility use one or more dose reduction techniques, viz.: automated exposure control; ma/kV adjustment per patient size (including targeted exams where dose is matched to indication; i.e. head); or iterative reconstruction technique. Coronal and sagittal reformatted images were created and reviewed. CONTRAST: 100 mL of visipaque 320 administered intravenously. COMPARISON: No relevant prior studies available. FINDINGS: Lower thorax: No acute findings. ABDOMEN: Liver: Unremarkable. No mass. Gallbladder and bile ducts: Cholecystectomy. No ductal dilation. Pancreas: Unremarkable. No mass. No ductal dilation. Spleen: Unremarkable. No splenomegaly. Adrenals: Unremarkable. No mass. Kidneys and ureters: Right kidney is unremarkable. Tiny left renal cortical cyst. No hydronephrosis. Stomach and bowel: Moderate to large amount retained stool. Correlate for constipation. Appendix: No findings to suggest acute appendicitis. PELVIS: Bladder: Unremarkable. No mass. Reproductive: Unremarkable as visualized. ABDOMEN and PELVIS: Intraperitoneal space: Small amount of free fluid in the pelvis. No free air. Bones/joints: No acute fracture. No dislocation. Soft tissues: Unremarkable. Vasculature: Unremarkable. No abdominal aortic aneurysm. Lymph nodes: Unremarkable. No enlarged lymph nodes. IMPRESSION: 1. Moderate to large amount retained stool. Correlate for constipation. 2. Small amount of free fluid in the pelvis. 3. Remainder of findings as above.
[2017-05-14] MEDS ORDERED: Acetaminophen 650mg/20.3ml solution UD PO STA (23:18)
--- NOTE | 2017-05-15 01:57 | US ---
EXAM: US Pelvis Complete, Transabdominal CLINICAL HISTORY: 37 years old, female; Pain; Pelvic pain; Prior surgery; Surgery date: 6+ months; Surgery type: 3 c-sections TECHNIQUE: Real-time transabdominal pelvic ultrasound (complete) with image documentation. COMPARISON: No relevant prior studies available. FINDINGS: Uterus/cervix: Uterus measures 12.0 x 4.8 x 5.9 CM. Endometrial stripe measures 1.2 CM. No myometrial mass. Right ovary: Right ovary measures 3.3 x 1.6 x 3.3 CM. Right ovary demonstrates normal waveforms. Normal blood flow. Left ovary: Left ovary measures 2.0 x 1.6 x 1.8 CM. Left ovary demonstrates grossly normal waveforms. Normal blood flow. Free fluid: Trace free fluid, better seen transvaginally. Bladder: Unremarkable as visualized. Wall is normal thickness for degree of distention. IMPRESSION: No acute findings. EXAM: US Pelvis, Transvaginal CLINICAL HISTORY: 37 years old, female; Pain; Pelvic pain; Prior surgery; Surgery date: 6+ months; Surgery type: 3 c-sections TECHNIQUE: Real-time transvaginal pelvic ultrasound (complete) with image documentation. Transvaginal imaging was used for better evaluation of the endometrium and adnexa. COMPARISON: CT - ABD PELVIS IV CONTRAST ONLY 05/14/2017 10:45:02 PM FINDINGS: Uterus/cervix: Transvaginally the endometrial stripe measures 1.7 CM. A fibroid in the anterior mid uterus measures 2.7 x 2.5 x 2.7 CM. A second fibroid in the posterior mid uterus measures 1.7 x 2.0 x 1.7 CM. Right ovary: Right ovary demonstrates a complex cyst measuring 2.5 x 1.9 x 2.5 CM. If indicated, this can be followed up in 6-8 weeks. Right ovary transvaginally measures 3.8 x 2.7 CM. Right ovary demonstrates normal waveforms. Normal blood flow. Left ovary: Trace free fluid is noted at the left adnexa and posterior cul-de-sac. Left ovary is not visualized transvaginally. Free fluid: See above. Bladder: Empty bladder which cannot be evaluated with this probe. IMPRESSION: 1. Right ovary demonstrates a complex cyst measuring 2.5 x 1.9 x 2.5 CM. If indicated, this can be followed up in 6-8 weeks. 2. Trace free fluid is noted at the left adnexa and posterior cul-de-sac. 3. 2 fibroids as described. 4. No acute findings.
[2017-05-15 02:11] VITALS: BP 101/66; PULSE 77; RESP 16; TEMP 97.5
[2017-05-17 07:55] VITALS: O2SAT 100
== END 2017-05-15 02:34 | disposition home or self-care (01) ==
LOC: C.ER 17:42
DX: R10.9 Unspecified abdominal pain (principal)
CPT/HCPCS: 74177; 76830; 76856; 80053; 81001; 83690; 84703; 85025; 85610; 85730; 96374; 96375; 99285; J1885; J2270; J2405; Q9967

== ENCOUNTER 2017-11-23 05:40 | Emergency (ER) | payer SELFPAY ==
[2017-11-23 05:53] VITALS: BMI 24.3
[2017-11-23 06:36] LABS: BASO # 0.2 K/uL (0.0-0.2); BASO % 2.1 % (0.0-2.0); EOS # 0.2 K/uL (0.0-0.7); EOS % 1.5 % (0.0-4.0); HEMOGLOBIN 9.1 g/dL (11.0-16.0); LYMPH # 2.2 K/uL (1.0-4.3); LYMPH % 20.9 % (20.0-40.0); MEAN CELL VOLUME 66.1 fL (81.0-99.0); MEAN CORPUSCULAR HEMOGLOBIN 20.5 pg (27.0-31.0); MEAN CORPUSCULAR HGB CONC 31.1 g/dL (33.0-37.0); MEAN PLATELET VOLUME 8.3 fL (7.2-11.7); MONO # 0.6 K/uL (0.0-0.8); MONO % 5.4 % (0.0-10.0); NEUT # 7.3 K/uL (1.8-7.0); NEUT % 70.1 % (50.0-75.0); NRBC % 0.1 % (0.0-2.0); RBC 4.44 Mil/uL (3.80-5.20); RED CELL DISTRIBUTION WIDTH 18.6 % (11.5-14.5); WHITE BLOOD COUNT 10.4 K/uL (4.8-10.8)
[2017-11-23 06:41] LABS: PROTHROMBIN TIME 11.1 SECONDS (9.7-12.2)
[2017-11-23 06:42] LABS: SQUAMOUS EPITHIAL 1 /hpf (0-5); URINE BACTERIA RARE (<OCC); URINE BILIRUBIN NEGATIVE (NEGATIVE); URINE BLOOD NEGATIVE (NEGATIVE); URINE CLARITY Clear (Clear); URINE COLOR Red (YELLOW); URINE GLUCOSE (UA) NORMAL (Normal); URINE LEUKOCYTE ESTERASE NEG Leu/uL (Negative); URINE PROTEIN NEGATIVE (NEGATIVE); URINE UROBILINOGEN NORMAL mg/dL (0.2-1.0)
[2017-11-23 06:43] LABS: HCG,QUALITATIVE URINE NEGATIVE (NEGATIVE)
[2017-11-23 06:45] LABS: ALBUMIN 4.3 g/dL (3.5-5.0); CALCIUM 9.3 mg/dl (8.6-10.4); GFR AFRICAN-AMERICAN > 60; GFR NON-AFRICAN AMERICAN > 60
[2017-11-23 06:47] LABS: ACETAMINOPHEN < 10.0 ug/mL (10.0-30.0); SALICYLATE < 1.0 mg/dL 1
[2017-11-23 06:48] LABS: ALT/SGPT 73 U/L (9-52); AST/SGOT 61 U/L (14-36); BLOOD UREA NITROGEN 9 mg/dL (7-17)
[2017-11-23 06:53] LABS: BARBITURATES, UR NEGATIVE (NEGATIVE); BENZODIAZEPINES, UR NEGATIVE (NEGATIVE); OPIATES, UR NEGATIVE (NEGATIVE); PHENCYCLIDINE, UR NEGATIVE (NEGATIVE)
[2017-11-23] MEDS ORDERED: DiphenhydrAMINE 50 mg/ml Inj IVP STA (07:13)
[2017-11-23] MEDS ORDERED: Sodium Chloride 0.9% 1,000 ML IV ONE (07:13)
[2017-11-23] MEDS ORDERED: DiphenhydrAMINE 50 mg/ml Inj ONE (07:27)
[2017-11-23] MEDS ORDERED: Sodium Chloride 0.9% 1,000 ML ONE (07:27)
--- NOTE | 2017-11-23 07:46 | C.PDOC ---
History Of Present Illness 37 year old female, whose PMHx includes Migraines, presents to the ED for evaluation of a migraine headache which began earlier today. Patient states her symptoms are similar to prior headaches. She also reports mnild dysuria. Patient took Ibuprofen and 2 vicodin at home without relief. She denies fever/ chills, cough, runny nose, vomiting, diarrhea, vaginal bleeding/discharge. She also admits to feeling depressed recently, however denies SI/HI. Time Seen by Provider: 11/23/17 07:03 Chief Complaint (Nursing): Psychiatric Evaluation History Per: Patient History/Exam Limitations: no limitations Onset/Duration Of Symptoms: Hrs Current Symptoms Are (Timing): Still Present Severity: Moderate Additional History Per: Patient Past Medical History Reviewed: Historical Data, Nursing Documentation, Vital Signs Vital Signs: Last Vital Signs Temp 97.6 F 11/23/17 08:58 Pulse 78 11/23/17 08:58 Resp 18 11/23/17 08:58 BP 102/65 11/23/17 08:58 Pulse Ox 99 11/23/17 08:58 - Medical History PMH: Anemia, Migraine Surgical History: Appendectomy, Cholecystectomy Family History: States: No Known Family Hx - Social History Hx Alcohol Use: No Hx Substance Use: No - Immunization History Hx Tetanus Toxoid Vaccination: No Hx Influenza Vaccination: No Hx Pneumococcal Vaccination: No Review Of Systems Except As Marked, All Systems Reviewed And Found Negative. Constitutional: Negative for: Fever, Chills ENT: Negative for: Nose Discharge Cardiovascular: Negative for: Chest Pain, Palpitations Respiratory: Negative for: Cough, Shortness of Breath Gastrointestinal: Negative for: Nausea, Vomiting, Abdominal Pain, Diarrhea Genitourinary: Positive for: Dysuria. Negative for: Hematuria, Vaginal Discharge, Vaginal Bleeding Neurological: Positive for: Headache Physical Exam - Physical Exam Appears: Well, Non-toxic, Other (uncomfortable appearing, (+) Photophobia) Skin: Normal Color, Warm, Dry Head: Atraumatic, Normacephalic Eye(s): bilateral: Normal Inspection Oral Mucosa: Moist Neck: Supple, Other (no meningismus) Cardiovascular: Rhythm Regular Respiratory: Normal Breath Sounds, No Rales, No Rhonchi, No Wheezing Gastrointestinal/Abdominal: Normal Exam, Bowel Sounds, Soft, No Tenderness Neurological/Psych: Oriented x3, Normal Speech, Normal Cognition Gait: Steady ED Course And Treatment - Laboratory Results Result Diagrams: 11/23/17 06:29 11/23/17 06:29 O2 Sat by Pulse Oximetry: 100 (on RA) Pulse Ox Interpretation: Normal Progress Note: Bloodwork and UA, Upreg ordered and reviewed. Patient given IV NS bolus, IV Reglan, IV Benadryl. Patient seen by crisis counselor, who discussed patient with [facility] psyciatrist. Patient has been scheduled for CRC appt on 11/21, and is cleared for discharge from psychiatric standpoint. Reevaluation Time: :20 Reassessment Condition: Improved (Patient reassessed, is resting comfortably and states her headache has resolved. Patient is well appearing, comfortable being discharged, and has normal vitals. She was given Rx for Fiorecet, and instructed to follow up with CRC on 11/21 as scheduled. Patient understands she should return to ED if she has any concerning symptoms.) Disposition Counseled Patient/Family Regarding: Studies Performed, Diagnosis, Need For Followup, Rx Given - Disposition Referrals: [facility] [Outside] [facility] [Outside] Disposition: HOME/ ROUTINE Disposition Time: :20 Condition: STABLE Prescriptions: Acetaminophen/Butalbital/Caf [Fioricet] 1 tab PO TID PRN #20 tab PRN Reason: Headache Instructions: Depression, Migraine Headaches in Adults Forms: [facility] (Mohawk) Print Language: BARBADIAN - Clinical Impression Clinical Impression: Migraine, Depression - Scribe Statement The provider has reviewed the documentation as recorded by the Scribe (Catherine Pruitt) Provider Attestation: All medical record entries made by the Scribe were at my direction and personally dictated by me. I have reviewed the chart and agree that the record accurately reflects my personal performance of the history, physical exam, medical decision making, and the department course for this patient. I have also personally directed, reviewed, and agree with the discharge instructions and disposition.
[2017-11-23 07:49] VITALS: RESP 18
[2017-11-23 08:58] VITALS: BP 102/65; PULSE 78; TEMP 97.6
[2017-11-23 10:40] VITALS: O2SAT 100
== END 2017-11-23 09:12 | disposition home or self-care (01) ==
LOC: C.ER 05:40
DX: G43.909 Migraine, unspecified, not intractable, without status migrainosus (principal); F32.9 Major depressive disorder, single episode, unspecified
CPT/HCPCS: 80053; 81001; 84703; 85025; 85610; 85730; 96361; 96374; 96375; 99285; G0480; J1200; J2765; J7040

== ENCOUNTER 2017-11-27 04:04 | Inpatient (IN) | payer OTHER ==
[2017-11-27 04:04] VITALS: BMI 24.3
[2017-11-27] MEDS ORDERED: Sodium Chloride 0.9% 1,000 ML IV ONE ×3 (04:23→07:57)
[2017-11-27] MEDS ORDERED: Sodium Chloride 0.9% 1,000 ML ONE ×2 (04:29→05:17)
[2017-11-27 04:47] LABS: BASO # 0.1 K/uL (0.0-0.2); EOS % 0.5 % (0.0-4.0); HEMOGLOBIN 7.7 g/dL (11.0-16.0); LYMPH # 2.6 K/uL (1.0-4.3); NEUT # 3.5 K/uL (1.8-7.0); WHITE BLOOD COUNT 6.6 K/uL (4.8-10.8)
--- NOTE | 2017-11-27 04:55 | C.PDOC ---
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 As per neighbor present in ED with pt, she was called by pt to bring her to ER for weakness. Friend states pt appeared drowsy and weak. Pt is poor historian and not answeing further questions Time Seen by Provider: 11/27/17 04:15 Chief Complaint (Nursing): Abdominal Pain History Per: Patient History/Exam Limitations: no limitations, other (sleepy but arousable) Current Symptoms Are (Timing): Gone Severity: Moderate Last Bowel Movement: Today Past Medical History Vital Signs: Last Vital Signs Temp 98.4 F 11/27/17 06:26 Pulse 67 11/27/17 06:26 Resp 17 11/27/17 06:26 BP 98/60 L 11/27/17 06:26 Pulse Ox 100 11/27/17 06:26 - Medical History PMH: Anemia, Depression, Migraine Denies: Diabetes, Hepatitis, HIV, HTN, Seizures, Sexually Transmitted Disease Surgical History: Appendectomy, Cholecystectomy Family History: States: Unknown Family Hx - Social History Hx Alcohol Use: No Hx Substance Use: No - Immunization History Hx Tetanus Toxoid Vaccination: No Hx Influenza Vaccination: No Hx Pneumococcal Vaccination: No Review Of Systems Constitutional: Positive for: Weakness, Malaise. Negative for: Fever, Chills Cardiovascular: Negative for: Chest Pain Respiratory: Negative for: Shortness of Breath Gastrointestinal: Positive for: Nausea, Vomiting, Abdominal Pain (epigastric) Neurological: Positive for: Weakness Physical Exam - Physical Exam Appears: Well, Non-toxic Skin: Normal Color, No Jaundice Head: Atraumatic Eye(s): bilateral: Normal Inspection, PERRL, EOMI, Other (no icterus) Neck: Normal, Supple Chest: Symmetrical Cardiovascular: Rhythm Regular Respiratory: Normal Breath Sounds, No Wheezing Gastrointestinal/Abdominal: Normal Exam, Soft, Tenderness (tenderness to epigastric area), No Distention, No Guarding Rectal: Deferred Back: Normal Inspection, No CVA Tenderness Pelvic: Vaginal Bleeding (mild), No Other (no clots) Extremity: Left: Other Neurological/Psych: Oriented x3 Gait: Unable To Assess ED Course And Treatment - Laboratory Results Result Diagrams: 11/27/17 06:56 11/27/17 04:43 Lab Interpretation: Abnormal Interpretation Of Abnormal: Cbc 7.1 decr from 9.1 on 11/23. K 2.9 O2 Sat by Pulse Oximetry: 100 Pulse Ox Interpretation: Normal Progress Note: Pt is pale, nauseous, voomiting, hypotensive HR normal. 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
[2017-11-27 04:59] LABS: BASO % 1.2 % (0.0-2.0); LYMPH % 39.8 % (20.0-40.0); MEAN CELL VOLUME 65.2 fL (81.0-99.0); MEAN CORPUSCULAR HEMOGLOBIN 21.1 pg (27.0-31.0); MEAN CORPUSCULAR HGB CONC 32.4 g/dL (33.0-37.0); MEAN PLATELET VOLUME 8.2 fL (7.2-11.7); MONO # 0.3 K/uL (0.0-0.8); MONO % 5.2 % (0.0-10.0); NEUT % 53.3 % (50.0-75.0); RBC 3.66 Mil/uL (3.80-5.20); RED CELL DISTRIBUTION WIDTH 18.5 % (11.5-14.5)
[2017-11-27 05:03] LABS: ALB/GLOB RATIO 1.2 (1.0-2.1); ALT/SGPT 40 U/L (9-52); AST/SGOT 26 U/L (14-36); BLOOD UREA NITROGEN 9 mg/dL (7-17); CALCIUM 8.9 mg/dl (8.6-10.4); GFR AFRICAN-AMERICAN > 60; GFR NON-AFRICAN AMERICAN > 60; LIPASE 101 U/L (23-300)
[2017-11-27] MEDS ORDERED: Potassium Chloride 20 mEq ER Tab PO STA (05:18)
[2017-11-27] MEDS ORDERED: Potassium Chloride 20 mEq 100 ML ONE (05:38)
[2017-11-27] MEDS ORDERED: Potassium Chloride 20 mEq ER Tab PO ONE (05:38)
[2017-11-27 06:37] LABS: SQUAMOUS EPITHIAL 2 /hpf (0-5); URINE BILIRUBIN NEGATIVE (NEGATIVE); URINE BLOOD 1+ (NEGATIVE); URINE CLARITY Clear (Clear); URINE COLOR Yellow (YELLOW); URINE GLUCOSE (UA) NORMAL (Normal); URINE LEUKOCYTE ESTERASE NEG Leu/uL (Negative); URINE PROTEIN NEGATIVE (NEGATIVE); URINE UROBILINOGEN NORMAL mg/dL (0.2-1.0)
[2017-11-27 06:50] LABS: BARBITURATES, UR NEGATIVE (NEGATIVE); BENZODIAZEPINES, UR NEGATIVE (NEGATIVE); OPIATES, UR NEGATIVE (NEGATIVE); PHENCYCLIDINE, UR NEGATIVE (NEGATIVE)
[2017-11-27 07:00] LABS: BASO # 0.1 K/uL (0.0-0.2); BASO % 1.3 % (0.0-2.0); EOS % 0.2 % (0.0-4.0); HEMOGLOBIN 6.8 g/dL (11.0-16.0); LYMPH # 1.1 K/uL (1.0-4.3); LYMPH % 21.6 % (20.0-40.0); MEAN CELL VOLUME 65.3 fL (81.0-99.0); MEAN CORPUSCULAR HEMOGLOBIN 20.8 pg (27.0-31.0); MEAN CORPUSCULAR HGB CONC 31.9 g/dL (33.0-37.0); MEAN PLATELET VOLUME 7.9 fL (7.2-11.7); MONO # 0.3 K/uL (0.0-0.8); MONO % 5.4 % (0.0-10.0); NEUT # 3.6 K/uL (1.8-7.0); NEUT % 71.5 % (50.0-75.0); RBC 3.27 Mil/uL (3.80-5.20); RED CELL DISTRIBUTION WIDTH 18.8 % (11.5-14.5)
[2017-11-27 08:51] LABS: INR 1.1
--- NOTE | 2017-11-27 08:51 | PCM.RRT ---
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 absent: Accessory Muscle Use, Rales, Rhonchi, Wheezes, Respiratory Distress - Cardiovascular Exam Cardiovascular Exam: REGULAR RHYTHM, +S1, +S2 - GI/Abdominal Exam GI & Abdominal Exam: Soft, Normal Bowel Sounds. absent: Distended, Firm, Guarding, Rigid, Tenderness - Neurological Exam Additional exam: Awakes to painful stimuli. Patient was not responsive to verbal stimuli upon entering room. Very lethargic, difficulty to converse with patient. - Extremities Exam Extremities Exam: absent: Pedal Edema Plan - Assessment of Findings&Treatment Plan Patient was set up to US from emergency room to evaluate known history of fibroids. During US, patient became unresponsive. Upon entering the room, patient was not arousable to verbal stimuli. A sternal rub was performed. Patient woke up and answered a few questions appropriately, but was very lethargic. Upon chart review, it was found that patient has a Hgb of 6.8 and positive stool occult. Her vitals signs were stable. Patient was transferred by down to the emergency room as she has not been admitted to the hospital yet. Patient was to be transfused 2 units of pRBC, per ED staff. <Steph Reyes - Last Filed: 11/27/17 12:34> Attending/Attestation - Attestation I have personally seen and examined this patient.: Yes I have fully participated in the care of the patient.: Yes I have reviewed all pertinent clinical information, including history, physical exam and plan: Yes Notes (Text): Patient was seen and examined at US unit.She was responding verbal.Kept her eyes closed.Denies pain,follow commands.SERA,clear lungs,mile epigastric tenderness.Has her periods/not heavy. Uses NSAIDS at home.H/O heavy periods and anemia.Denies amari. Symptomatic anemia /acute on chronic/r/o GI bleeding(H/o abd pain and nsaids use ) and possible heavy periods causing her anemia vitals stable.pt will go to ER back
--- NOTE | 2017-11-27 09:19 | CP.PCM.HP ---
<Julio Quintero Caitlin - Last Filed: 11/27/17 09:21> History of Present Illness - History of Present Illness History of Present Illness: CC: Symptomatic Anemia HPI: 37 year old female with PMHx of uterine fibroids, anemia, migraine , depression, presents to ER with weakness, epigastric pain, nausea, and vomiting. In the ER, patient was pale, lethargic, and had a measured Hgb of 7.7. ER attending discussed case with OB attending who advised patient be sent to have pelvic ultrasound. In ultrasound room patient became unresponsive and rapid response was called. Patient's responded to sternal rub but remained lethargic. Patient's vitals remained stable and she was transferred to ER. Patient interview was conducted via patternmaker apprentice wood (hospital grain shipper). Patient was lethargic and possibly poor historian. Patient states she takes tylenol and ibuprofen for pain occasionally. Patient denies any serene blood in stool and states her stools are yellow colored. Patient denies vomiting any blood or change of pain level with food. Patient states she has pain in her stomach region that has been present for the past 2 days. Stool occult blood was positive in ER. She states she is currently on her period. Her periods occur regularly monthly with heavy flow. She states she uses one "big pad" per day of her period. Patient was previously in ER on 11/23/17 for migraines. She took ibuprofen and vicodin for migraine pain. On that visit her Hgb was 9.1 which it has been trending down from a peak of 9.8 on 03/13/17. Prior chart review also states patient was to have a hysterectomy with OBGYN Dr. Sarath Chow. PMHx: fibroids, migraine, depression, chronic anemia (2/2 to fibroids?) PSHx: 4 sections, appendectomy and as per prior charts cholecystectomy Home meds: Motrin as needed Allergies: denies FamilyHx: unknown SocialHx: Patient denies smoking, drinking or recreational drug use. 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 Chart review shows patient is recently . Present on Admission - Present on Admission Any Indicators Present on Admission: No Review of Systems - Review of Systems Systems not reviewed;Unavailable: Altered Mental Status - Constitutional Constitutional: Fatigue, Lethargy, Malaise. absent: Chills, Fever - Cardiovascular Cardiovascular: Lightheadedness. absent: Chest Pain, Chest Pain at Rest - Respiratory Respiratory: absent: Cough, Hemoptysis, Wheezing - Gastrointestinal Gastrointestinal: Abdominal Pain, Nausea, Vomiting. absent: Bloating, Constipation, Cramping, Diarrhea, Heartburn, Hematemesis, Hematochezia, Melena - Genitourinary Genitourinary: absent: Dysuria - Neurological Neurological: Dizziness Past Patient History - Infectious Disease Hx of Infectious Diseases: None - Past Social History Smoking Status: Never Smoked - CARDIAC Hx Hypertension: No - PULMONARY Hx Tuberculosis: No - NEUROLOGICAL Hx Migraine: Yes Hx Seizures: No - ENDOCRINE/METABOLIC Other/Comment: "low blood sugar" - HEMATOLOGICAL/ONCOLOGICAL Hx Anemia: Yes Hx Human Immunodeficiency Virus (HIV): No - GENITOURINARY/GYNECOLOGICAL Hx Sexually Transmitted Disorders: No - PSYCHIATRIC Hx Depression: Yes Hx Substance Use: No - SURGICAL HISTORY Hx Appendectomy: Yes Hx Cholecystectomy: Yes - ANESTHESIA Hx Anesthesia: Yes Hx Anesthesia Reactions: No Meds Allergies/Adverse Reactions: Allergies Allergy/AdvReac Type Severity Reaction Status Date / Time No Known Allergies Allergy Verified 11/27/17 04:09 Physical Exam - Constitutional Additional comments: Lethargic - Head Exam Head Exam: ATRAUMATIC, NORMAL INSPECTION - Eye Exam Eye Exam: EOMI Pupil Exam: PERRL - ENT Exam ENT Exam: Mucous Membranes Dry - Neck Exam Neck exam: Positive for: Normal Inspection. Negative for: Lymphadenopathy, Tenderness - Respiratory Exam Respiratory Exam: Clear to Auscultation Bilateral, NORMAL BREATHING PATTERN. absent: Rales, Rhonchi, Wheezes - Cardiovascular Exam Cardiovascular Exam: REGULAR RHYTHM, +S1, +S2. absent: Bradycardia, Tachycardia , JVD, Systolic Murmur - GI/Abdominal Exam GI & Abdominal Exam: Normal Bowel Sounds, Soft, Tenderness. absent: Distended, Firm, Guarding, Hernia, Mass, Rebound, Rigid Additional comments: Tenderness to palpation in epigastric region - Rectal Exam Rectal Exam: Deferred - Extremities Exam Extremities exam: Positive for: full ROM, normal capillary refill, normal inspection, pedal pulses present. Negative for: calf tenderness, tenderness - Neurological Exam Neurological exam: Alert, Oriented x3 - Skin Skin Exam: Intact, Pallor, Warm Results - Vital Signs Recent Vital Signs: Last Vital Signs Temp 97 F L 11/27/17 08:00 Pulse 64 11/27/17 08:31 Resp 14 11/27/17 08:31 BP 92/53 L 11/27/17 08:31 Pulse Ox 100 11/27/17 08:31 - Labs Result Diagrams: 11/27/17 06:56 11/27/17 04:43 Labs: Laboratory Results - last 24 hr 11/27/17 11/27/17 11/27/17 04:18 04:43 04:43 WBC 6.6 RBC 3.66 L Hgb 7.7 L Hct 23.9 L MCV 65.2 L MCH 21.1 L MCHC 32.4 L RDW 18.5 H Plt Count 373 MPV 8.2 Neut % (Auto) 53.3 Lymph % (Auto) 39.8 [place] % (Auto) 5.2 Eos % (Auto) 0.5 Baso % (Auto) 1.2 Neut # (Auto) 3.5 Lymph # (Auto) 2.6 [place] # (Auto) 0.3 Eos # (Auto) 0.0 Baso # (Auto) 0.1 PT INR APTT Sodium 136 Potassium 2.9 L Chloride 100 Carbon Dioxide 21 L Anion Gap 18 BUN 9 Creatinine 0.5 L Est GFR ( Amer) > 60 Est GFR (Non-Af Amer) > 60 POC Glucose (mg/dL) 136 H Random Glucose 156 H Calcium 8.9 Phosphorus Magnesium Total Bilirubin 0.8 AST 26 ALT 40 Alkaline Phosphatase 68 Total Protein 7.4 Albumin 4.0 Globulin 3.4 Albumin/Globulin Ratio 1.2 Lipase 101 Urine Color Urine Clarity Urine pH Ur Specific [place] Urine Protein Urine Glucose (UA) Urine Ketones Urine Blood Urine Nitrate Urine Bilirubin Urine Urobilinogen Ur Leukocyte Esterase Urine WBC (Auto) Urine RBC (Auto) Ur Squamous Epith Cells Urine HCG, Qual Stool Occult Blood Urine Opiates Screen Urine Methadone Screen Ur Barbiturates Screen Ur Phencyclidine Scrn Ur Amphetamines Screen U Benzodiazepines Scrn U Oth Cocaine Metabols U Cannabinoids Screen Alcohol, Quantitative < 10 11/27/17 11/27/17 11/27/17 06:27 06:27 06:27 WBC RBC Hgb Hct MCV MCH MCHC RDW Plt Count MPV Neut % (Auto) Lymph % (Auto) [place] % (Auto) Eos % (Auto) Baso % (Auto) Neut # (Auto) Lymph # (Auto) [place] # (Auto) Eos # (Auto) Baso # (Auto) PT INR APTT Sodium Potassium Chloride Carbon Dioxide Anion Gap BUN Creatinine Est GFR ( Amer) Est GFR (Non-Af Amer) POC Glucose (mg/dL) Random Glucose Calcium Phosphorus Magnesium Total Bilirubin AST ALT Alkaline Phosphatase Total Protein Albumin Globulin Albumin/Globulin Ratio Lipase Urine Color Yellow Urine Clarity Clear Urine pH 5.0 Ur Specific [place] 1.043 H Urine Protein Negative Urine Glucose (UA) Normal Urine Ketones 1+ H Urine Blood 1+ H Urine Nitrate Negative Urine Bilirubin Negative Urine Urobilinogen Normal Ur Leukocyte Esterase Neg Urine WBC (Auto) 1 Urine RBC (Auto) 13 H Ur Squamous Epith Cells 2 Urine HCG, Qual Negative Stool Occult Blood Urine Opiates Screen Negative Urine Methadone Screen Negative Ur Barbiturates Screen Negative Ur Phencyclidine Scrn Negative Ur Amphetamines Screen Negative U Benzodiazepines Scrn Negative U Oth Cocaine Metabols Negative U Cannabinoids Screen Negative Alcohol, Quantitative 11/27/17 11/27/17 11/27/17 06:56 06:56 08:38 WBC 5.0 RBC 3.27 L Hgb 6.8 L Hct 21.3 L MCV 65.3 L MCH 20.8 L MCHC 31.9 L RDW 18.8 H Plt Count 321 MPV 7.9 Neut % (Auto) 71.5 Lymph % (Auto) 21.6 [place] % (Auto) 5.4 Eos % (Auto) 0.2 Baso % (Auto) 1.3 Neut # (Auto) 3.6 Lymph # (Auto) 1.1 [place] # (Auto) 0.3 Eos # (Auto) 0.0 Baso # (Auto) 0.1 PT 13.0 H INR 1.1 APTT 25 Sodium Potassium Chloride Carbon Dioxide Anion Gap BUN Creatinine Est GFR ( Amer) Est GFR (Non-Af Amer) POC Glucose (mg/dL) Random Glucose Calcium Phosphorus Magnesium Total Bilirubin AST ALT Alkaline Phosphatase Total Protein Albumin Globulin Albumin/Globulin Ratio Lipase Urine Color Urine Clarity Urine pH Ur Specific [place] Urine Protein Urine Glucose (UA) Urine Ketones Urine Blood Urine Nitrate Urine Bilirubin Urine Urobilinogen Ur Leukocyte Esterase Urine WBC (Auto) Urine RBC (Auto) Ur Squamous Epith Cells Urine HCG, Qual Stool Occult Blood Positive H Urine Opiates Screen Urine Methadone Screen Ur Barbiturates Screen Ur Phencyclidine Scrn Ur Amphetamines Screen U Benzodiazepines Scrn U Oth Cocaine Metabols U Cannabinoids Screen Alcohol, Quantitative 11/27/17 08:38 WBC RBC Hgb Hct MCV MCH MCHC RDW Plt Count MPV Neut % (Auto) Lymph % (Auto) [place] % (Auto) Eos % (Auto) Baso % (Auto) Neut # (Auto) Lymph # (Auto) [place] # (Auto) Eos # (Auto) Baso # (Auto) PT INR APTT Sodium Potassium Chloride Carbon Dioxide Anion Gap BUN Creatinine Est GFR ( Amer) Est GFR (Non-Af Amer) POC Glucose (mg/dL) Random Glucose Calcium Phosphorus 3.4 Magnesium 1.5 L Total Bilirubin AST ALT Alkaline Phosphatase Total Protein Albumin Globulin Albumin/Globulin Ratio Lipase Urine Color Urine Clarity Urine pH Ur Specific [place] Urine Protein Urine Glucose (UA) Urine Ketones Urine Blood Urine Nitrate Urine Bilirubin Urine Urobilinogen Ur Leukocyte Esterase Urine WBC (Auto) Urine RBC (Auto) Ur Squamous Epith Cells Urine HCG, Qual Stool Occult Blood Urine Opiates Screen Urine Methadone Screen Ur Barbiturates Screen Ur Phencyclidine Scrn Ur Amphetamines Screen U Benzodiazepines Scrn U Oth Cocaine Metabols U Cannabinoids Screen Alcohol, Quantitative Assessment & Plan (1) Symptomatic anemia Assessment and Plan: Hx of uterine fibroids w/ heavy periods and currently menstruating Also w/ recent NSAID use and epigastric pain and Stool Guiac POSITIVE, denies black or bloody stools Vaginal bleeding vs GI bleed or both? Dilutional component (2L fluid bolus) could contribute to precepitous drop from Hgb 7.7 -> 6.8 within 2 hours GI consult, Dr Wlihelm. Help appreciated. Labs/Diagnostics: F/U ferritin, folate, haptoglobin, vitamin b12, iron/tibc, hemoglobinopathy eval Meds: Administer 2units pRBC Protonix 40mg IVP Q12H NPO for now Imaging: Pelvic/Transvaginal US 05/2017: Uterus/cervix: Transvaginally the endometrial stripe measures 1.7 CM. A fibroid in the anterior mid uterus measures 2.7 x 2.5 x 2.7 CM. A second fibroid in the posterior mid uterus measures 1.7 x 2.0 x 1.7 CM. Pelvic/Abd CT w/ IV contrast 05/2017: 1. Moderate to large amount retained stool. Correlate for constipation. 2. Small amount of free fluid in the pelvis. Status: Acute Priority: High (2) Uterine fibroid Assessment and Plan: Patient with known hx of Uterine Fibroids w/ heavy bleeding Chart review shows patient was to have a hysterectomy with PEDIATRIC OPHTHALMOLOGIST Dr. Sarath Chow - will follow-up Vaginal ultrasound cancelled today 11/27/17 due to patient becoming unresponsive Imaging: Pelvic/Transvaginal US 05/2017: Uterus/cervix: Transvaginally the endometrial stripe measures 1.7 CM. A fibroid in the anterior mid uterus measures 2.7 x 2.5 x 2.7 CM. A second fibroid in the posterior mid uterus measures 1.7 x 2.0 x 1.7 CM. Status: Acute Priority: High (3) Abdominal pain Assessment and Plan: Epigastric tenderness for 2 days [employer] - took motrin at home (unknown quantity) w/ o relief Stool Guiac POSITIVE, denies black or bloody stools GI consult, Dr Wilhelm. Help appreciated. Labs/Diagnostics: Lipase NORMAL, AST/ALT NORMAL HCG NEGATIVE Non-drinker, UDS NEGATIVE Meds: Protonix 40mg IVP Q12H NPO for now Imaging: Pelvic/Abd CT w/ IV contrast 05/2017: 1. Moderate to large amount retained stool. Correlate for constipation. 2. Small amount of free fluid in the pelvis. Status: Acute Priority: High (4) Prophylactic measure Assessment and Plan: Protonix 40mg IVP Q12H SCDs NPO for now AO contraindicated 2/2 to anemia Status: Acute Priority: High <Steph Reyes - Last Filed: 11/27/17 12:41> Results - Vital Signs Recent Vital Signs: Last Vital Signs Temp 98.3 F 11/27/17 12:24 Pulse 62 11/27/17 12:24 Resp 18 11/27/17 12:24 BP 95/62 L 11/27/17 12:24 Pulse Ox 99 11/27/17 12:24 - Labs Result Diagrams: 11/27/17 06:56 11/27/17 04:43 Labs: Laboratory Results - last 24 hr 11/27/17 11/27/17 11/27/17 04:18 04:43 04:43 WBC 6.6 RBC 3.66 L Hgb 7.7 L Hct 23.9 L MCV 65.2 L MCH 21.1 L MCHC 32.4 L RDW 18.5 H Plt Count 373 MPV 8.2 Neut % (Auto) 53.3 Lymph % (Auto) 39.8 [place] % (Auto) 5.2 Eos % (Auto) 0.5 Baso % (Auto) 1.2 Neut # (Auto) 3.5 Lymph # (Auto) 2.6 [place] # (Auto) 0.3 Eos # (Auto) 0.0 Baso # (Auto) 0.1 Retic Count Haptoglobin PT INR APTT Sodium 136 Potassium 2.9 L Chloride 100 Carbon Dioxide 21 L Anion Gap 18 BUN 9 Creatinine 0.5 L Est GFR ( Amer) > 60 Est GFR (Non-Af Amer) > 60 POC Glucose (mg/dL) 136 H Random Glucose 156 H Calcium 8.9 Phosphorus Magnesium Iron TIBC % Saturation Ferritin Total Bilirubin 0.8 AST 26 ALT 40 Alkaline Phosphatase 68 Total Protein 7.4 Albumin 4.0 Globulin 3.4 Albumin/Globulin Ratio 1.2 Lipase 101 Vitamin B12 Folate Urine Color Urine Clarity Urine pH Ur Specific [place] Urine Protein Urine Glucose (UA) Urine Ketones Urine Blood Urine Nitrate Urine Bilirubin Urine Urobilinogen Ur Leukocyte Esterase Urine WBC (Auto) Urine RBC (Auto) Ur Squamous Epith Cells Urine HCG, Qual Stool Occult Blood Urine Opiates Screen Urine Methadone Screen Ur Barbiturates Screen Ur Phencyclidine Scrn Ur Amphetamines Screen U Benzodiazepines Scrn U Oth Cocaine Metabols U Cannabinoids Screen Alcohol, Quantitative < 10 Blood Type Blood Type Confirm Antibody Screen 11/27/17 11/27/17 11/27/17 06:27 06:27 06:27 WBC RBC Hgb Hct MCV MCH MCHC RDW Plt Count MPV Neut % (Auto) Lymph % (Auto) [place] % (Auto) Eos % (Auto) Baso % (Auto) Neut # (Auto) Lymph # (Auto) [place] # (Auto) Eos # (Auto) Baso # (Auto) Retic Count Haptoglobin PT INR APTT Sodium Potassium Chloride Carbon Dioxide Anion Gap BUN Creatinine Est GFR ( Amer) Est GFR (Non-Af Amer) POC Glucose (mg/dL) Random Glucose Calcium Phosphorus Magnesium Iron TIBC % Saturation Ferritin Total Bilirubin AST ALT Alkaline Phosphatase Total Protein Albumin Globulin Albumin/Globulin Ratio Lipase Vitamin B12 Folate Urine Color Yellow Urine Clarity Clear Urine pH 5.0 Ur Specific [place] 1.043 H Urine Protein Negative Urine Glucose (UA) Normal Urine Ketones 1+ H Urine Blood 1+ H Urine Nitrate Negative Urine Bilirubin Negative Urine Urobilinogen Normal Ur Leukocyte Esterase Neg Urine WBC (Auto) 1 Urine RBC (Auto) 13 H Ur Squamous Epith Cells 2 Urine HCG, Qual Negative Stool Occult Blood Urine Opiates Screen Negative Urine Methadone Screen Negative Ur Barbiturates Screen Negative Ur Phencyclidine Scrn Negative Ur Amphetamines Screen Negative U Benzodiazepines Scrn Negative U Oth Cocaine Metabols Negative U Cannabinoids Screen Negative Alcohol, Quantitative Blood Type Blood Type Confirm Antibody Screen 11/27/17 11/27/17 11/27/17 06:56 06:56 08:38 WBC 5.0 RBC 3.27 L Hgb 6.8 L Hct 21.3 L MCV 65.3 L MCH 20.8 L MCHC 31.9 L RDW 18.8 H Plt Count 321 MPV 7.9 Neut % (Auto) 71.5 Lymph % (Auto) 21.6 [place] % (Auto) 5.4 Eos % (Auto) 0.2 Baso % (Auto) 1.3 Neut # (Auto) 3.6 Lymph # (Auto) 1.1 [place] # (Auto) 0.3 Eos # (Auto) 0.0 Baso # (Auto) 0.1 Retic Count 1.0 Haptoglobin PT 13.0 H INR 1.1 APTT 25 Sodium Potassium Chloride Carbon Dioxide Anion Gap BUN Creatinine Est GFR ( Amer) Est GFR (Non-Af Amer) POC Glucose (mg/dL) Random Glucose Calcium Phosphorus Magnesium Iron TIBC % Saturation Ferritin Total Bilirubin AST ALT Alkaline Phosphatase Total Protein Albumin Globulin Albumin/Globulin Ratio Lipase Vitamin B12 Folate Urine Color Urine Clarity Urine pH Ur Specific [place] Urine Protein Urine Glucose (UA) Urine Ketones Urine Blood Urine Nitrate Urine Bilirubin Urine Urobilinogen Ur Leukocyte Esterase Urine WBC (Auto) Urine RBC (Auto) Ur Squamous Epith Cells Urine HCG, Qual Stool Occult Blood Positive H Urine Opiates Screen Urine Methadone Screen Ur Barbiturates Screen Ur Phencyclidine Scrn Ur Amphetamines Screen U Benzodiazepines Scrn U Oth Cocaine Metabols U Cannabinoids Screen Alcohol, Quantitative Blood Type Blood Type Confirm Antibody Screen 11/27/17 11/27/17 11/27/17 08:38 08:38 09:08 WBC RBC Hgb Hct MCV MCH MCHC RDW Plt Count MPV Neut % (Auto) Lymph % (Auto) [place] % (Auto) Eos % (Auto) Baso % (Auto) Neut # (Auto) Lymph # (Auto) [place] # (Auto) Eos # (Auto) Baso # (Auto) Retic Count Haptoglobin PT INR APTT Sodium Potassium Chloride Carbon Dioxide Anion Gap BUN Creatinine Est GFR ( Amer) Est GFR (Non-Af Amer) POC Glucose (mg/dL) Random Glucose Calcium Phosphorus 3.4 Magnesium 1.5 L Iron < 10 L TIBC 454 H % Saturation 2.20 L Ferritin 6.0 Total Bilirubin AST ALT Alkaline Phosphatase Total Protein Albumin Globulin Albumin/Globulin Ratio Lipase Vitamin B12 393 Folate 16.8 Urine Color Urine Clarity Urine pH Ur Specific [place] Urine Protein Urine Glucose (UA) Urine Ketones Urine Blood Urine Nitrate Urine Bilirubin Urine Urobilinogen Ur Leukocyte Esterase Urine WBC (Auto) Urine RBC (Auto) Ur Squamous Epith Cells Urine HCG, Qual Stool Occult Blood Urine Opiates Screen Urine Methadone Screen Ur Barbiturates Screen Ur Phencyclidine Scrn Ur Amphetamines Screen U Benzodiazepines Scrn U Oth Cocaine Metabols U Cannabinoids Screen Alcohol, Quantitative Blood Type O POSITIVE Blood Type Confirm O POSITIVE Antibody Screen Negative 11/27/17 09:08 WBC RBC Hgb Hct MCV MCH MCHC RDW Plt Count MPV Neut % (Auto) Lymph % (Auto) [place] % (Auto) Eos % (Auto) Baso % (Auto) Neut # (Auto) Lymph # (Auto) [place] # (Auto) Eos # (Auto) Baso # (Auto) Retic Count Haptoglobin 103.3 PT INR APTT Sodium Potassium Chloride Carbon Dioxide Anion Gap BUN Creatinine Est GFR ( Amer) Est GFR (Non-Af Amer) POC Glucose (mg/dL) Random Glucose Calcium Phosphorus Magnesium Iron TIBC % Saturation Ferritin Total Bilirubin AST ALT Alkaline Phosphatase Total Protein Albumin Globulin Albumin/Globulin Ratio Lipase Vitamin B12 Folate Urine Color Urine Clarity Urine pH Ur Specific [place] Urine Protein Urine Glucose (UA) Urine Ketones Urine Blood Urine Nitrate Urine Bilirubin Urine Urobilinogen Ur Leukocyte Esterase Urine WBC (Auto) Urine RBC (Auto) Ur Squamous Epith Cells Urine HCG, Qual Stool Occult Blood Urine Opiates Screen Urine Methadone Screen Ur Barbiturates Screen Ur Phencyclidine Scrn Ur Amphetamines Screen U Benzodiazepines Scrn U Oth Cocaine Metabols U Cannabinoids Screen Alcohol, Quantitative Blood Type Blood Type Confirm Antibody Screen Attending/Attestation - Attestation I have personally seen and examined this patient.: Yes I have fully participated in the care of the patient.: Yes I have reviewed all pertinent clinical information: Yes Notes (Text): Patient was seen and examined at ER History taken with the help of thai speaking staff. Has h/o haevy periods.Has monthly periods now. Denies amari.H/o eppigastric pain ,vomiting and nsaids use .Recurrent ER visits in the past for abdominal pain. CT reports reviewed Patient was seen by director of strategic sales as an out pt.No heavy periods at this time. on examination she is not tachycardia,alert oriented x 3. has mild epigastric tenderness. Stool OB positive(has her periods?) but has high possibility of peptic ulcer disease and complaining of abd pain.we will get GI consult d/w the resident i agree with the documentation of the assessment and the plan 11/27/17 12:35
[2017-11-27 09:34] LABS: IRON < 10 ug/dL (37-170)
[2017-11-27 09:46] LABS: TOTAL IRON BINDING CAPACITY 454 ug/dL (250-450)
[2017-11-27 10:07] LABS: FOLATE 16.8 ng/mL
[2017-11-27] MEDS: Magnesium Sulfate 1 gm in D5W 1 GM/100 ML BAG IVPB SCH ×2 (13:57→15:05)
--- NOTE | 2017-11-27 18:33 | CP.PCM.CON ---
<Brigitte Pruitt - Last Filed: 11/27/17 18:24> History of Present Illness - History of Present Illness History of Present Illness: PGY4 Initial GI consult Lacey Tucker is a 37 year old female with Hx of anemia, uterine fibroids, and migraines who presents to ER with weakness and epigastric abd pain. she was found to have a Hgb of 7.7. During ultrasound, patient became unresponsive and rapid response was called. Patient's vitals remained stable and she was transferred to ER. She was awake after painful stimuli. Patient denies BRBPR, melena, hematemsis or coffee-ground emesis. Patient denies vomiting any blood or change of pain level with food. She notes that he abd pain started 2 days prior and radiated towards her umbilicus. Stool occult blood was positive in ER. She states she is currently on her period. Her periods occur regularly monthly with heavy flow. She notes taking ibuprofen and vicodin for migraine pain frequently for migraines. PMHx: fibroids, migraine, depression, chronic anemia (2/2 to fibroids?) PSHx: 4 sections, appendectomy and as per prior charts cholecystectomy FamilyHx: denies SocialHx: Patient denies smoking, drinking or recreational drug use. Endo hx: denies ROS: 12 point ROS is conducted and neg other than above Past Patient History - Infectious Disease Hx of Infectious Diseases: None - Past Social History Smoking Status: Never Smoked - CARDIAC Hx Hypertension: No Hx Hypotension: Yes - PULMONARY Hx Tuberculosis: No - NEUROLOGICAL Hx Migraine: Yes Hx Seizures: No - HEENT Hx HEENT Problems: No - RENAL Hx Chronic Kidney Disease: No - ENDOCRINE/METABOLIC Other/Comment: "low blood sugar" - HEMATOLOGICAL/ONCOLOGICAL Hx Anemia: Yes Hx Human Immunodeficiency Virus (HIV): No - INTEGUMENTARY Hx Dermatological Problems: No - MUSCULOSKELETAL/RHEUMATOLOGICAL Hx Falls: No - GASTROINTESTINAL Hx Gastrointestinal Disorders: No - GENITOURINARY/GYNECOLOGICAL Hx Sexually Transmitted Disorders: No - PSYCHIATRIC Hx Depression: Yes Hx Substance Use: No - SURGICAL HISTORY Hx Appendectomy: Yes Hx Cholecystectomy: Yes - ANESTHESIA Hx Anesthesia: Yes Hx Anesthesia Reactions: Yes (pt states she got too much anesthesia 11 years ago , had trouble waking up) Meds Allergies/Adverse Reactions: Allergies Allergy/AdvReac Type Severity Reaction Status Date / Time No Known Allergies Allergy Verified 11/27/17 04:09 - Medications Medications: Current Medications Pantoprazole Sodium (Protonix Inj) 40 mg IVP Q12H [facility]ILCAR Last Admin: 11/27/17 11:57 Dose: 40 mg Physical Exam - Constitutional Appears: No Acute Distress - Head Exam Head Exam: ATRAUMATIC, NORMOCEPHALIC - Eye Exam Eye Exam: Normal appearance Pupil Exam: NORMAL ACCOMODATION - ENT Exam ENT Exam: Mucous Membranes Moist, Normal Exam - Neck Exam Neck exam: Positive for: Normal Inspection - Respiratory Exam Respiratory Exam: Clear to Auscultation Bilateral, NORMAL BREATHING PATTERN. absent: Rales, Rhonchi, Wheezes, Respiratory Distress - Cardiovascular Exam Cardiovascular Exam: REGULAR RHYTHM, +S1, +S2 - GI/Abdominal Exam GI & Abdominal Exam: Normal Bowel Sounds, Soft. absent: Guarding, Hernia, Rigid , Tenderness - Rectal Exam Rectal Exam: absent: Black Stool, Bloody Stool - Extremities Exam Extremities exam: Negative for: joint swelling, pedal edema - Neurological Exam Neurological exam: Alert, Oriented x3 - Psychiatric Exam Psychiatric exam: Normal Affect, Normal Mood - Skin Skin Exam: Dry, Intact, Normal Color, Warm Results - Vital Signs Recent Vital Signs: Last Vital Signs Temp 98.1 F 11/27/17 17:30 Pulse 73 11/27/17 17:30 Resp 20 11/27/17 17:30 BP 102/68 11/27/17 17:30 Pulse Ox 100 11/27/17 15:00 - Labs Result Diagrams: 11/27/17 06:56 11/27/17 04:43 Labs: Laboratory Results - last 24 hr 11/27/17 11/27/17 11/27/17 04:18 04:43 04:43 WBC 6.6 RBC 3.66 L Hgb 7.7 L Hct 23.9 L MCV 65.2 L MCH 21.1 L MCHC 32.4 L RDW 18.5 H Plt Count 373 MPV 8.2 Neut % (Auto) 53.3 Lymph % (Auto) 39.8 [place] % (Auto) 5.2 Eos % (Auto) 0.5 Baso % (Auto) 1.2 Neut # (Auto) 3.5 Lymph # (Auto) 2.6 [place] # (Auto) 0.3 Eos # (Auto) 0.0 Baso # (Auto) 0.1 Retic Count Haptoglobin PT INR APTT Sodium 136 Potassium 2.9 L Chloride 100 Carbon Dioxide 21 L Anion Gap 18 BUN 9 Creatinine 0.5 L Est GFR ( Amer) > 60 Est GFR (Non-Af Amer) > 60 POC Glucose (mg/dL) 136 H Random Glucose 156 H Calcium 8.9 Phosphorus Magnesium Iron TIBC % Saturation Ferritin Total Bilirubin 0.8 AST 26 ALT 40 Alkaline Phosphatase 68 Total Protein 7.4 Albumin 4.0 Globulin 3.4 Albumin/Globulin Ratio 1.2 Lipase 101 Vitamin B12 Folate Urine Color Urine Clarity Urine pH Ur Specific [place] Urine Protein Urine Glucose (UA) Urine Ketones Urine Blood Urine Nitrate Urine Bilirubin Urine Urobilinogen Ur Leukocyte Esterase Urine WBC (Auto) Urine RBC (Auto) Ur Squamous Epith Cells Urine HCG, Qual Stool Occult Blood Urine Opiates Screen Urine Methadone Screen Ur Barbiturates Screen Ur Phencyclidine Scrn Ur Amphetamines Screen U Benzodiazepines Scrn U Oth Cocaine Metabols U Cannabinoids Screen Alcohol, Quantitative < 10 Blood Type Blood Type Confirm Antibody Screen 11/27/17 11/27/17 11/27/17 06:27 06:27 06:27 WBC RBC Hgb Hct MCV MCH MCHC RDW Plt Count MPV Neut % (Auto) Lymph % (Auto) [place] % (Auto) Eos % (Auto) Baso % (Auto) Neut # (Auto) Lymph # (Auto) [place] # (Auto) Eos # (Auto) Baso # (Auto) Retic Count Haptoglobin PT INR APTT Sodium Potassium Chloride Carbon Dioxide Anion Gap BUN Creatinine Est GFR ( Amer) Est GFR (Non-Af Amer) POC Glucose (mg/dL) Random Glucose Calcium Phosphorus Magnesium Iron TIBC % Saturation Ferritin Total Bilirubin AST ALT Alkaline Phosphatase Total Protein Albumin Globulin Albumin/Globulin Ratio Lipase Vitamin B12 Folate Urine Color Yellow Urine Clarity Clear Urine pH 5.0 Ur Specific [place] 1.043 H Urine Protein Negative Urine Glucose (UA) Normal Urine Ketones 1+ H Urine Blood 1+ H Urine Nitrate Negative Urine Bilirubin Negative Urine Urobilinogen Normal Ur Leukocyte Esterase Neg Urine WBC (Auto) 1 Urine RBC (Auto) 13 H Ur Squamous Epith Cells 2 Urine HCG, Qual Negative Stool Occult Blood Urine Opiates Screen Negative Urine Methadone Screen Negative Ur Barbiturates Screen Negative Ur Phencyclidine Scrn Negative Ur Amphetamines Screen Negative U Benzodiazepines Scrn Negative U Oth Cocaine Metabols Negative U Cannabinoids Screen Negative Alcohol, Quantitative Blood Type Blood Type Confirm Antibody Screen 11/27/17 11/27/17 11/27/17 06:56 06:56 08:38 WBC 5.0 RBC 3.27 L Hgb 6.8 L Hct 21.3 L MCV 65.3 L MCH 20.8 L MCHC 31.9 L RDW 18.8 H Plt Count 321 MPV 7.9 Neut % (Auto) 71.5 Lymph % (Auto) 21.6 [place] % (Auto) 5.4 Eos % (Auto) 0.2 Baso % (Auto) 1.3 Neut # (Auto) 3.6 Lymph # (Auto) 1.1 [place] # (Auto) 0.3 Eos # (Auto) 0.0 Baso # (Auto) 0.1 Retic Count 1.0 Haptoglobin PT 13.0 H INR 1.1 APTT 25 Sodium Potassium Chloride Carbon Dioxide Anion Gap BUN Creatinine Est GFR ( Amer) Est GFR (Non-Af Amer) POC Glucose (mg/dL) Random Glucose Calcium Phosphorus Magnesium Iron TIBC % Saturation Ferritin Total Bilirubin AST ALT Alkaline Phosphatase Total Protein Albumin Globulin Albumin/Globulin Ratio Lipase Vitamin B12 Folate Urine Color Urine Clarity Urine pH Ur Specific [place] Urine Protein Urine Glucose (UA) Urine Ketones Urine Blood Urine Nitrate Urine Bilirubin Urine Urobilinogen Ur Leukocyte Esterase Urine WBC (Auto) Urine RBC (Auto) Ur Squamous Epith Cells Urine HCG, Qual Stool Occult Blood Positive H Urine Opiates Screen Urine Methadone Screen Ur Barbiturates Screen Ur Phencyclidine Scrn Ur Amphetamines Screen U Benzodiazepines Scrn U Oth Cocaine Metabols U Cannabinoids Screen Alcohol, Quantitative Blood Type Blood Type Confirm Antibody Screen 11/27/17 11/27/17 11/27/17 08:38 08:38 09:08 WBC RBC Hgb Hct MCV MCH MCHC RDW Plt Count MPV Neut % (Auto) Lymph % (Auto) [place] % (Auto) Eos % (Auto) Baso % (Auto) Neut # (Auto) Lymph # (Auto) [place] # (Auto) Eos # (Auto) Baso # (Auto) Retic Count Haptoglobin PT INR APTT Sodium Potassium Chloride Carbon Dioxide Anion Gap BUN Creatinine Est GFR ( Amer) Est GFR (Non-Af Amer) POC Glucose (mg/dL) Random Glucose Calcium Phosphorus 3.4 Magnesium 1.5 L Iron < 10 L TIBC 454 H % Saturation 2.20 L Ferritin 6.0 Total Bilirubin AST ALT Alkaline Phosphatase Total Protein Albumin Globulin Albumin/Globulin Ratio Lipase Vitamin B12 393 Folate 16.8 Urine Color Urine Clarity Urine pH Ur Specific [place] Urine Protein Urine Glucose (UA) Urine Ketones Urine Blood Urine Nitrate Urine Bilirubin Urine Urobilinogen Ur Leukocyte Esterase Urine WBC (Auto) Urine RBC (Auto) Ur Squamous Epith Cells Urine HCG, Qual Stool Occult Blood Urine Opiates Screen Urine Methadone Screen Ur Barbiturates Screen Ur Phencyclidine Scrn Ur Amphetamines Screen U Benzodiazepines Scrn U Oth Cocaine Metabols U Cannabinoids Screen Alcohol, Quantitative Blood Type O POSITIVE Blood Type Confirm O POSITIVE Antibody Screen Negative 11/27/17 09:08 WBC RBC Hgb Hct MCV MCH MCHC RDW Plt Count MPV Neut % (Auto) Lymph % (Auto) [place] % (Auto) Eos % (Auto) Baso % (Auto) Neut # (Auto) Lymph # (Auto) [place] # (Auto) Eos # (Auto) Baso # (Auto) Retic Count Haptoglobin 103.3 PT INR APTT Sodium Potassium Chloride Carbon Dioxide Anion Gap BUN Creatinine Est GFR ( Amer) Est GFR (Non-Af Amer) POC Glucose (mg/dL) Random Glucose Calcium Phosphorus Magnesium Iron TIBC % Saturation Ferritin Total Bilirubin AST ALT Alkaline Phosphatase Total Protein Albumin Globulin Albumin/Globulin Ratio Lipase Vitamin B12 Folate Urine Color Urine Clarity Urine pH Ur Specific [place] Urine Protein Urine Glucose (UA) Urine Ketones Urine Blood Urine Nitrate Urine Bilirubin Urine Urobilinogen Ur Leukocyte Esterase Urine WBC (Auto) Urine RBC (Auto) Ur Squamous Epith Cells Urine HCG, Qual Stool Occult Blood Urine Opiates Screen Urine Methadone Screen Ur Barbiturates Screen Ur Phencyclidine Scrn Ur Amphetamines Screen U Benzodiazepines Scrn U Oth Cocaine Metabols U Cannabinoids Screen Alcohol, Quantitative Blood Type Blood Type Confirm Antibody Screen Assessment & Plan - Assessment and Plan (Free Text) Assessment: Clarisa Tucker is a 37 F w/ hx of fibroidsm, anemia, and migraines who presents with anemia, lethargy, and weakness Anemia, unknown etiology DDx: Uterine, PUD, AVM Chronic NSIAD use hx of migraines Plan: -transfuse to maintain a hgb >7 -maintain 2 large IV bore lines -start PPI 40mg PID -NPO after midnight -EGD tomorrow -avoid NSAIDs -h/h q 12 hrs -rest of care as per primary team D/W Dr. Wilhelm <[email or web address] - Last Filed: 11/27/17 19:01> Meds - Medications Medications: Current Medications Pantoprazole Sodium (Protonix Inj) 40 mg IVP Q12H [facility] Last Admin: 11/27/17 11:57 Dose: 40 mg Results - Vital Signs Recent Vital Signs: Last Vital Signs Temp 98.1 F 11/27/17 17:30 Pulse 73 11/27/17 17:30 Resp 20 11/27/17 17:30 BP 102/68 11/27/17 17:30 Pulse Ox 100 11/27/17 15:00 - Labs Result Diagrams: 11/27/17 06:56 11/27/17 04:43 Labs: Laboratory Results - last 24 hr 11/27/17 11/27/17 11/27/17 04:18 04:43 04:43 WBC 6.6 RBC 3.66 L Hgb 7.7 L Hct 23.9 L MCV 65.2 L MCH 21.1 L MCHC 32.4 L RDW 18.5 H Plt Count 373 MPV 8.2 Neut % (Auto) 53.3 Lymph % (Auto) 39.8 [place] % (Auto) 5.2 Eos % (Auto) 0.5 Baso % (Auto) 1.2 Neut # (Auto) 3.5 Lymph # (Auto) 2.6 [place] # (Auto) 0.3 Eos # (Auto) 0.0 Baso # (Auto) 0.1 Retic Count Haptoglobin PT INR APTT Sodium 136 Potassium 2.9 L Chloride 100 Carbon Dioxide 21 L Anion Gap 18 BUN 9 Creatinine 0.5 L Est GFR ( Amer) > 60 Est GFR (Non-Af Amer) > 60 POC Glucose (mg/dL) 136 H Random Glucose 156 H Calcium 8.9 Phosphorus Magnesium Iron TIBC % Saturation Ferritin Total Bilirubin 0.8 AST 26 ALT 40 Alkaline Phosphatase 68 Total Protein 7.4 Albumin 4.0 Globulin 3.4 Albumin/Globulin Ratio 1.2 Lipase 101 Vitamin B12 Folate Urine Color Urine Clarity Urine pH Ur Specific [place] Urine Protein Urine Glucose (UA) Urine Ketones Urine Blood Urine Nitrate Urine Bilirubin Urine Urobilinogen Ur Leukocyte Esterase Urine WBC (Auto) Urine RBC (Auto) Ur Squamous Epith Cells Urine HCG, Qual Stool Occult Blood Urine Opiates Screen Urine Methadone Screen Ur Barbiturates Screen Ur Phencyclidine Scrn Ur Amphetamines Screen U Benzodiazepines Scrn U Oth Cocaine Metabols U Cannabinoids Screen Alcohol, Quantitative < 10 Blood Type Blood Type Confirm Antibody Screen 11/27/17 11/27/17 11/27/17 06:27 06:27 06:27 WBC RBC Hgb Hct MCV MCH MCHC RDW Plt Count MPV Neut % (Auto) Lymph % (Auto) [place] % (Auto) Eos % (Auto) Baso % (Auto) Neut # (Auto) Lymph # (Auto) [place] # (Auto) Eos # (Auto) Baso # (Auto) Retic Count Haptoglobin PT INR APTT Sodium Potassium Chloride Carbon Dioxide Anion Gap BUN Creatinine Est GFR ( Amer) Est GFR (Non-Af Amer) POC Glucose (mg/dL) Random Glucose Calcium Phosphorus Magnesium Iron TIBC % Saturation Ferritin Total Bilirubin AST ALT Alkaline Phosphatase Total Protein Albumin Globulin Albumin/Globulin Ratio Lipase Vitamin B12 Folate Urine Color Yellow Urine Clarity Clear Urine pH 5.0 Ur Specific [place] 1.043 H Urine Protein Negative Urine Glucose (UA) Normal Urine Ketones 1+ H Urine Blood 1+ H Urine Nitrate Negative Urine Bilirubin Negative Urine Urobilinogen Normal Ur Leukocyte Esterase Neg Urine WBC (Auto) 1 Urine RBC (Auto) 13 H Ur Squamous Epith Cells 2 Urine HCG, Qual Negative Stool Occult Blood Urine Opiates Screen Negative Urine Methadone Screen Negative Ur Barbiturates Screen Negative Ur Phencyclidine Scrn Negative Ur Amphetamines Screen Negative U Benzodiazepines Scrn Negative U Oth Cocaine Metabols Negative U Cannabinoids Screen Negative Alcohol, Quantitative Blood Type Blood Type Confirm Antibody Screen 11/27/17 11/27/17 11/27/17 06:56 06:56 08:38 WBC 5.0 RBC 3.27 L Hgb 6.8 L Hct 21.3 L MCV 65.3 L MCH 20.8 L MCHC 31.9 L RDW 18.8 H Plt Count 321 MPV 7.9 Neut % (Auto) 71.5 Lymph % (Auto) 21.6 [place] % (Auto) 5.4 Eos % (Auto) 0.2 Baso % (Auto) 1.3 Neut # (Auto) 3.6 Lymph # (Auto) 1.1 [place] # (Auto) 0.3 Eos # (Auto) 0.0 Baso # (Auto) 0.1 Retic Count 1.0 Haptoglobin PT 13.0 H INR 1.1 APTT 25 Sodium Potassium Chloride Carbon Dioxide Anion Gap BUN Creatinine Est GFR ( Amer) Est GFR (Non-Af Amer) POC Glucose (mg/dL) Random Glucose Calcium Phosphorus Magnesium Iron TIBC % Saturation Ferritin Total Bilirubin AST ALT Alkaline Phosphatase Total Protein Albumin Globulin Albumin/Globulin Ratio Lipase Vitamin B12 Folate Urine Color Urine Clarity Urine pH Ur Specific [place] Urine Protein Urine Glucose (UA) Urine Ketones Urine Blood Urine Nitrate Urine Bilirubin Urine Urobilinogen Ur Leukocyte Esterase Urine WBC (Auto) Urine RBC (Auto) Ur Squamous Epith Cells Urine HCG, Qual Stool Occult Blood Positive H Urine Opiates Screen Urine Methadone Screen Ur Barbiturates Screen Ur Phencyclidine Scrn Ur Amphetamines Screen U Benzodiazepines Scrn U Oth Cocaine Metabols U Cannabinoids Screen Alcohol, Quantitative Blood Type Blood Type Confirm Antibody Screen 11/27/17 11/27/17 11/27/17 08:38 08:38 09:08 WBC RBC Hgb Hct MCV MCH MCHC RDW Plt Count MPV Neut % (Auto) Lymph % (Auto) [place] % (Auto) Eos % (Auto) Baso % (Auto) Neut # (Auto) Lymph # (Auto) [place] # (Auto) Eos # (Auto) Baso # (Auto) Retic Count Haptoglobin PT INR APTT Sodium Potassium Chloride Carbon Dioxide Anion Gap BUN Creatinine Est GFR ( Amer) Est GFR (Non-Af Amer) POC Glucose (mg/dL) Random Glucose Calcium Phosphorus 3.4 Magnesium 1.5 L Iron < 10 L TIBC 454 H % Saturation 2.20 L Ferritin 6.0 Total Bilirubin AST ALT Alkaline Phosphatase Total Protein Albumin Globulin Albumin/Globulin Ratio Lipase Vitamin B12 393 Folate 16.8 Urine Color Urine Clarity Urine pH Ur Specific [place] Urine Protein Urine Glucose (UA) Urine Ketones Urine Blood Urine Nitrate Urine Bilirubin Urine Urobilinogen Ur Leukocyte Esterase Urine WBC (Auto) Urine RBC (Auto) Ur Squamous Epith Cells Urine HCG, Qual Stool Occult Blood Urine Opiates Screen Urine Methadone Screen Ur Barbiturates Screen Ur Phencyclidine Scrn Ur Amphetamines Screen U Benzodiazepines Scrn U Oth Cocaine Metabols U Cannabinoids Screen Alcohol, Quantitative Blood Type O POSITIVE Blood Type Confirm O POSITIVE Antibody Screen Negative 11/27/17 09:08 WBC RBC Hgb Hct MCV MCH MCHC RDW Plt Count MPV Neut % (Auto) Lymph % (Auto) [place] % (Auto) Eos % (Auto) Baso % (Auto) Neut # (Auto) Lymph # (Auto) [place] # (Auto) Eos # (Auto) Baso # (Auto) Retic Count Haptoglobin 103.3 PT INR APTT Sodium Potassium Chloride Carbon Dioxide Anion Gap BUN Creatinine Est GFR ( Amer) Est GFR (Non-Af Amer) POC Glucose (mg/dL) Random Glucose Calcium Phosphorus Magnesium Iron TIBC % Saturation Ferritin Total Bilirubin AST ALT Alkaline Phosphatase Total Protein Albumin Globulin Albumin/Globulin Ratio Lipase Vitamin B12 Folate Urine Color Urine Clarity Urine pH Ur Specific [place] Urine Protein Urine Glucose (UA) Urine Ketones Urine Blood Urine Nitrate Urine Bilirubin Urine Urobilinogen Ur Leukocyte Esterase Urine WBC (Auto) Urine RBC (Auto) Ur Squamous Epith Cells Urine HCG, Qual Stool Occult Blood Urine Opiates Screen Urine Methadone Screen Ur Barbiturates Screen Ur Phencyclidine Scrn Ur Amphetamines Screen U Benzodiazepines Scrn U Oth Cocaine Metabols U Cannabinoids Screen Alcohol, Quantitative Blood Type Blood Type Confirm Antibody Screen Attending/Attestation - Attestation I have personally seen and examined this patient.: Yes I have fully participated in the care of the patient.: Yes I have reviewed all pertinent clinical information: Yes Notes (Text): 11/27/17 19:00 37 year old female who presents with symptomatic anemia in the setting of chronic nsaid use. Recommend egd tomorrow to eval for PUD. PPI therapy. NPO after mn. Transfuse 2 units of blood.
[2017-11-28] MEDS ORDERED: Sodium Chloride 0.9% 500 ML IV ONE (01:59)
[2017-11-28 07:45] LABS: BASO # 0.1 K/uL (0.0-0.2); BASO % 0.9 % (0.0-2.0); EOS # 0.1 K/uL (0.0-0.7); EOS % 1.1 % (0.0-4.0); LYMPH # 2.6 K/uL (1.0-4.3); LYMPH % 47.7 % (20.0-40.0); MEAN CORPUSCULAR HEMOGLOBIN 22.3 pg (27.0-31.0); MEAN CORPUSCULAR HGB CONC 31.7 g/dL (33.0-37.0); MEAN PLATELET VOLUME 8.3 fL (7.2-11.7); MONO # 0.4 K/uL (0.0-0.8); MONO % 7.4 % (0.0-10.0); NEUT # 2.3 K/uL (1.8-7.0); NEUT % 42.9 % (50.0-75.0); NRBC % 0.1 % (0.0-2.0); RBC 4.16 Mil/uL (3.80-5.20); RED CELL DISTRIBUTION WIDTH 22.8 % (11.5-14.5); WHITE BLOOD COUNT 5.4 K/uL (4.8-10.8)
[2017-11-28 07:56] LABS: ALT/SGPT 88 U/L (9-52); AST/SGOT 61 U/L (14-36); BLOOD UREA NITROGEN 6 mg/dL (7-17); CALCIUM 8.1 mg/dl (8.6-10.4); GFR AFRICAN-AMERICAN > 60; GFR NON-AFRICAN AMERICAN > 60
[2017-11-28 08:01] LABS: HEMOGLOBIN 9.3 g/dL (11.0-16.0); MEAN CELL VOLUME 70.2 fL (81.0-99.0)
[2017-11-28] MEDS ORDERED: Lactated Ringer's 1,000 ML IV ONE (14:00)
[2017-11-28] MEDS ORDERED: Propofol 10 mg/ml Inj (20 ML) ONE (14:03)
[2017-11-28] MEDS ORDERED: Midazolam 2 MG/2 ML VIAL ONE (14:12)
--- NOTE | 2017-11-28 14:24 | CP.PCM.PN ---
Subjective - Date & Time of Evaluation Date of Evaluation: 11/28/17 Time of Evaluation: 14:21 - Subjective Subjective: Patient seen and examined, no acute events overnight. She is seen resting in bed comfortably. She endorses mild epigastric abdominal pain but otherwise denies nausea, vomiting, diarrhea, fever/chills. Tolerating PO diet without difficulty. Objective - Vital Signs/Intake and Output Vital Signs (last 24 hours): Temp Pulse Resp BP Pulse Ox 97.9 F 82 17 145/77 98 11/28/17 13:54 11/28/17 13:54 11/28/17 13:54 11/28/17 13:54 11/28/17 13:54 Intake and Output: 11/28/17 11/28/17 06:59 18:59 Intake Total 1855 Balance 1855 - Medications Medications: Current Medications Pantoprazole Sodium (Protonix Inj) 40 mg IVP Q12H [facility] Last Admin: 11/28/17 08:23 Dose: 40 mg - Labs Labs: 11/28/17 07:13 11/28/17 07:13 PT 13.0 SECONDS (9.7-12.2) H 11/27/17 08:38 INR 1.1 11/27/17 08:38 APTT 25 SECONDS (21-34) 11/27/17 08:38 Assessment and Plan - Assessment and Plan (Free Text) Assessment: Abdominal pain Iron deficiency anemia Syncope s/p EGD showing gastritis, antral erosions. No evidence of active or recent bleeding on examination. Plan: - Advance diet as tolerated - Continue with PPI therapy - Await EGD biopsy results - Follow up COLD WORKING INSPECTOR recommendations - No further planned inpatient GI intervention, will sign off case. Please reconsult as necessary, thank you.
[2017-11-28] MEDS ORDERED: Magnesium Sulfate 1 gm in D5W 1 GM/100 ML BAG IVPB ONE ×2 (14:34→16:00)
[2017-11-28] MEDS ORDERED: Ferric Sodium Gluconat Complex 62.5 mg/5 ml Vial IVPB SCH (14:45)
--- NOTE | 2017-11-28 14:47 | CP.PCM.PN ---
Subjective - Date & Time of Evaluation Date of Evaluation: 11/28/17 Time of Evaluation: 14:28 - Subjective Subjective: PGY-[address] Reyes. No acute events noted overnight. Patient stated she had some lumbar area back pain. This could be consistent with her currently being on her period. Otherwise she did not offer any complaints. She is s/p EGD with Dr Pulido. All other ROS were negative. Objective - Vital Signs/Intake and Output Vital Signs (last 24 hours): Temp Pulse Resp BP Pulse Ox 97.9 F 72 20 115/64 100 11/28/17 14:15 11/28/17 14:15 11/28/17 14:15 11/28/17 14:15 11/28/17 14:15 Intake and Output: 11/28/17 11/28/17 06:59 18:59 Intake Total 1855 Balance 1855 - Medications Medications: Current Medications Pantoprazole Sodium (Protonix Inj) 40 mg IVP Q12H [facility]IL[facility] Last Admin: 11/28/17 08:23 Dose: 40 mg - Labs Labs: 11/28/17 07:13 11/28/17 07:13 PT 13.0 SECONDS (9.7-12.2) H 11/27/17 08:38 INR 1.1 11/27/17 08:38 APTT 25 SECONDS (21-34) 11/27/17 08:38 - Additional Findings Additional findings: (1) Symptomatic anemia Assessment and Plan: Hx of uterine fibroids w/ heavy periods and currently menstruating Also w/ recent NSAID use and epigastric pain and Stool Guiac POSITIVE, denies black or bloody stools Vaginal bleeding vs GI bleed or both? Dilutional component (2L fluid bolus) could contribute to precepitous drop from Hgb 7.7 -> 6.8 within 2 hours GI consult, Dr Wilhelm. Help appreciated. * s/p EGD showing gastritis, antral erosions. No evidence of active or recent bleeding on examination. * Advance diet as tolerated * Continue with PPI therapy. No aspirin, ibuprofen, naproxen or other NSAIDs. * Await EGD biopsy pathology results * Follow up RIGGER recommendations * No further planned inpatient GI intervention, will sign off case. Please reconsult as necessary, thank you Labs/Diagnostics: Hgb 6.8 -> 9.3 (s/p 2units pRBC) Iron studies indicative of Iron Deficiency Anemia Iron LOW, % Saturation LOW, TIBC HIGH, Ferritin LOW B12, Folate NORMAL Meds: s/p 2units pRBC 11/27/17 Protonix 40mg IVP Q12H Ferrlicet 125mg IV ONCE 11/28/17 Restarted diet - heart healthy Imaging: Pelvic/Transvaginal US 05/2017: Uterus/cervix: Transvaginally the endometrial stripe measures 1.7 CM. A fibroid in the anterior mid uterus measures 2.7 x 2.5 x 2.7 CM. A second fibroid in the posterior mid uterus measures 1.7 x 2.0 x 1.7 CM. Pelvic/Abd CT w/ IV contrast 05/2017: 1. Moderate to large amount retained stool. Correlate for constipation. 2. Small amount of free fluid in the pelvis. Status: Acute Priority: High (2) Uterine fibroid Assessment and Plan: Patient with known hx of Uterine Fibroids w/ heavy bleeding Chart review shows patient was to have a hysterectomy with [employer] Dr. Sarath Chow - will follow-up Vaginal ultrasound cancelled 11/27/17 due to patient becoming unresponsive Imaging: Pelvic/Transvaginal US 05/2017: Uterus/cervix: Transvaginally the endometrial stripe measures 1.7 CM. A fibroid in the anterior mid uterus measures 2.7 x 2.5 x 2.7 CM. A second fibroid in the posterior mid uterus measures 1.7 x 2.0 x 1.7 CM. Status: Acute Priority: High (3) Abdominal pain Assessment and Plan: Epigastric tenderness for 2 days [employer] - took motrin at home (unknown quantity) w/ o relief Stool Guiac POSITIVE, denies black or bloody stools * Possible contamination as patient currently on her period * Repeat Stool Occult Test GI consult, Dr Wilhelm. Help appreciated. * See EGD results and GI plan shown above. Labs/Diagnostics: Lipase NORMAL, AST/ALT UPTRENDING HCG NEGATIVE Non-drinker, UDS NEGATIVE Meds: Protonix 40mg IVP Q12H Restarted diet - Heart Healthy Imaging: Pelvic/Abd CT w/ IV contrast 05/2017: 1. Moderate to large amount retained stool. Correlate for constipation. 2. Small amount of free fluid in the pelvis. Status: Acute Priority: High (4) Prophylactic measure Assessment and Plan: Protonix 40mg IVP Q12H SCDs NPO for now AO contraindicated 2/2 to anemia Status: Acute Priority: High Disposition: She will need to follow-up with her outpatient OBGYN Dr. Sarath Chow regarding her previously planned but unperformed hysterectomy. She will need to be discharged with PPI and Feosol tablets. Assessment and Plan (1) Symptomatic anemia Status: Acute (2) Uterine fibroid Status: Acute (3) Abdominal pain Status: Acute (4) Prophylactic measure Status: Acute
[2017-11-28 16:43] VITALS: BP 106/67; RESP 18; TEMP 98; O2SAT 100
--- NOTE | 2017-11-28 17:25 | CP.PCM.DIS ---
Provider - Provider Date of Admission: 11/27/17 08:20 Attending physician: Steph Reyes MD Primary care physician: PMD: None Consults: GI: Dr Pulido Time Spent in preparation of Discharge (in minutes): 36 Diagnosis - Discharge Diagnosis (1) Symptomatic anemia Status: Resolved Priority: High (2) Uterine fibroid Status: Chronic Priority: High (3) Abdominal pain Status: Resolved Priority: High (4) Prophylactic measure Status: Acute Priority: Low Hospital Course - Lab Results Lab Results: Most Recent Lab Values WBC 5.4 K/uL (4.8-10.8) 11/28/17 07:13 RBC 4.16 Mil/uL (3.80-5.20) 11/28/17 07:13 Hgb 9.3 g/dL (11.0-16.0) L D 11/28/17 07:13 Hct 29.2 % (34.0-47.0) L 11/28/17 07:13 MCV 70.2 fL (81.0-99.0) L D 11/28/17 07:13 MCH 22.3 pg (27.0-31.0) L 11/28/17 07:13 MCHC 31.7 g/dL (33.0-37.0) L 11/28/17 07:13 RDW 22.8 % (11.5-14.5) H 11/28/17 07:13 Plt Count 333 K/uL (130-400) 11/28/17 07:13 MPV 8.3 fL (7.2-11.7) 11/28/17 07:13 Neut % (Auto) 42.9 % (50.0-75.0) L 11/28/17 07:13 Lymph % (Auto) 47.7 % (20.0-40.0) H 11/28/17 07:13 Sumner % (Auto) 7.4 % (0.0-10.0) 11/28/17 07:13 Eos % (Auto) 1.1 % (0.0-4.0) 11/28/17 07:13 Baso % (Auto) 0.9 % (0.0-2.0) 11/28/17 07:13 Neut # (Auto) 2.3 K/uL (1.8-7.0) 11/28/17 07:13 Lymph # (Auto) 2.6 K/uL (1.0-4.3) 11/28/17 07:13 Sumner # (Auto) 0.4 K/uL (0.0-0.8) 11/28/17 07:13 Eos # (Auto) 0.1 K/uL (0.0-0.7) 11/28/17 07:13 Baso # (Auto) 0.1 K/uL (0.0-0.2) 11/28/17 07:13 Retic Count 1.0 % (0.5-1.5) 11/27/17 06:56 Haptoglobin 103.3 mg/dL (30.0-200.0) 11/27/17 09:08 PT 13.0 SECONDS (9.7-12.2) H 11/27/17 08:38 INR 1.1 11/27/17 08:38 APTT 25 SECONDS (21-34) 11/27/17 08:38 Sodium 140 mmol/L (132-148) 11/28/17 07:13 Potassium 3.3 mmol/L (3.6-5.2) L 11/28/17 07:13 Chloride 107 mmol/L (98-107) 11/28/17 07:13 Carbon Dioxide 23 mmol/L (22-30) 11/28/17 07:13 Anion Gap 13 (10-20) 11/28/17 07:13 BUN 6 mg/dL (7-17) L 11/28/17 07:13 Creatinine 0.5 mg/dL (0.7-1.2) L 11/28/17 07:13 Est GFR ( Amer) > 60 11/28/17 07:13 Est GFR (Non-Af Amer) > 60 11/28/17 07:13 POC Glucose (mg/dL) 136 mg/dL (65-110) H 11/27/17 04:18 Random Glucose 78 mg/dL (65-105) 11/28/17 07:13 Calcium 8.1 mg/dl (8.6-10.4) L 11/28/17 07:13 Phosphorus 3.4 mg/dL (2.5-4.5) 11/27/17 08:38 Magnesium 1.5 mg/dL (1.6-2.3) L 11/27/17 08:38 Iron < 10 ug/dL (37-170) L 11/27/17 09:08 TIBC 454 ug/dL (250-450) H 11/27/17 09:08 % Saturation 2.20 (20-55) L 11/27/17 09:08 Ferritin 6.0 ng/mL 11/27/17 08:38 Total Bilirubin 1.8 mg/dL (0.2-1.3) H 11/28/17 07:13 AST 61 U/L (14-36) H D 11/28/17 07:13 ALT 88 U/L (9-52) H D 11/28/17 07:13 Alkaline Phosphatase 49 U/L (38-126) 11/28/17 07:13 Total Protein 5.9 g/dL (6.3-8.3) L 11/28/17 07:13 Albumin 3.0 g/dL (3.5-5.0) L D 11/28/17 07:13 Globulin 2.9 gm/dL (2.2-3.9) 11/28/17 07:13 Albumin/Globulin Ratio 1.0 (1.0-2.1) 11/28/17 07:13 Lipase 101 U/L (23-300) 11/27/17 04:43 Vitamin B12 393 pg/mL (239-931) 11/27/17 08:38 Folate 16.8 ng/mL 11/27/17 08:38 Urine Color Yellow (YELLOW) 11/27/17 06:27 Urine Clarity Clear (Clear) 11/27/17 06:27 Urine pH 5.0 (5.0-8.0) 11/27/17 06:27 Ur Specific [place] 1.043 (1.003-1.030) H 11/27/17 06:27 Urine Protein Negative mg/dL (NEGATIVE) 11/27/17 06:27 Urine Glucose (UA) Normal mg/dL (Normal) 11/27/17 06:27 Urine Ketones 1+ mg/dL (NEGATIVE) H 11/27/17 06:27 Urine Blood 1+ (NEGATIVE) H 11/27/17 06:27 Urine Nitrate Negative (NEGATIVE) 11/27/17 06:27 Urine Bilirubin Negative (NEGATIVE) 11/27/17 06:27 Urine Urobilinogen Normal mg/dL (0.2-1.0) 11/27/17 06:27 Ur Leukocyte Esterase Neg William/uL (Negative) 11/27/17 06:27 Urine WBC (Auto) 1 /hpf (0-5) 11/27/17 06:27 Urine RBC (Auto) 13 /hpf (0-3) H 11/27/17 06:27 Ur Squamous Epith Cells 2 /hpf (0-5) 11/27/17 06:27 Urine HCG, Qual Negative (NEGATIVE) 11/28/17 13:32 Stool Occult Blood Positive (NEGATIVE) H 11/27/17 06:56 Urine Opiates Screen Negative (NEGATIVE) 11/27/17 06:27 Urine Methadone Screen Negative (NEGATIVE) 11/27/17 06:27 Ur Barbiturates Screen Negative (NEGATIVE) 11/27/17 06:27 Ur Phencyclidine Scrn Negative (NEGATIVE) 11/27/17 06:27 Ur Amphetamines Screen Negative (NEGATIVE) 11/27/17 06:27 U Benzodiazepines Scrn Negative (NEGATIVE) 11/27/17 06:27 U Oth Cocaine Metabols Negative (NEGATIVE) 11/27/17 06:27 U Cannabinoids Screen Negative (NEGATIVE) 11/27/17 06:27 Alcohol, Quantitative < 10 mg/dl (0-10) 11/27/17 04:43 Blood Type O POSITIVE 11/27/17 08:38 Blood Type Confirm O POSITIVE 11/27/17 08:38 Antibody Screen Negative 11/27/17 08:38 - Hospital Course Hospital Course: CC: Symptomatic Anemia HPI: 37 year old female with PMHx of uterine fibroids, anemia, migraine , depression, presents to ER with weakness, epigastric pain, nausea, and vomiting. In the ER, patient was pale, lethargic, and had a measured Hgb of 7.7. ER attending discussed case with OB attending who advised patient be sent to have pelvic ultrasound. In ultrasound room patient became unresponsive and rapid response was called. Patient's responded to sternal rub but remained lethargic. Patient's vitals remained stable and she was transferred to ER. Patient interview was conducted via case technician (hospital electrical accessories i assembler). Patient was lethargic and possibly poor historian. Patient states she takes tylenol and ibuprofen for pain occasionally. Patient denies any serene blood in stool and states her stools are yellow colored. Patient denies vomiting any blood or change of pain level with food. Patient states she has pain in her stomach region that has been present for the past 2 days. Stool occult blood was positive in ER. She states she is currently on her period. Her periods occur regularly monthly with heavy flow. She states she uses one "big pad" per day of her period. Patient was previously in ER on 11/23/17 for migraines. She took ibuprofen and vicodin for migraine pain. On that visit her Hgb was 9.1 which it has been trending down from a peak of 9.8 on 03/13/17. Prior chart review also states patient was to have a hysterectomy with OBGYN Dr. Sarath Chow. PMHx: fibroids, migraine, depression, chronic anemia (2/2 to fibroids?) PSHx: 4 sections, appendectomy and as per prior charts cholecystectomy Home meds: Motrin as needed Allergies: denies FamilyHx: unknown SocialHx: Patient denies smoking, drinking or recreational drug use. 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 Chart review shows patient is recently . HOSPITAL COURSE: 37 year old female with PMHx of uterine fibroids, anemia, migraine and depression presented to ER with weakness, epigastric pain, nausea and vomiting. Patients Hgb was 6.7 in ER. Rapid response was called as patient became unresponsive en route for pelvic ultrasound. Patient became responsive quickly, was treated with 2 units of packed red blood cells, protonix 40 mg IV q12 and NS 500mls at 1L/hr. Dr. Wilhelm from GI was consulted as patient was found to have (+) stool occult and was scheduled for EGD. EGD showed gastritis, antral erosions, there was no evidence of active or recent bleeding on examination. It' s possible her positive stool occult was due to contamination as patient was currently on her period. Patient was instructed to follow up with her OBGYN Dr. Sarath Chow to re- discuss potential hysterectomy which previous charts had shown patient had interest in. Upon discharge patient's epigastric pain had decreased, was no longer nauseous or vomiting, and her hemoglobin was elevated to 9.3. (1) Symptomatic anemia Assessment and Plan: Hx of uterine fibroids w/ heavy periods and currently menstruating Also w/ recent NSAID use and epigastric pain and Stool Guiac POSITIVE, denies black or bloody stools Vaginal bleeding vs GI bleed or both? Dilutional component (2L fluid bolus) could contribute to precepitous drop from Hgb 7.7 -> 6.8 within 2 hours GI consult, Dr Wilhelm. Help appreciated. * s/p EGD showing gastritis, antral erosions. No evidence of active or recent bleeding on examination. * Advance diet as tolerated * Continue with PPI therapy. No aspirin, ibuprofen, naproxen or other NSAIDs. * Await EGD biopsy pathology results * Follow up STOVE MECHANIC recommendations * No further planned inpatient GI intervention, will sign off case. Please reconsult as necessary, thank you Labs/Diagnostics: Hgb 6.8 -> 9.3 (s/p 2units pRBC) Iron studies indicative of Iron Deficiency Anemia Iron LOW, % Saturation LOW, TIBC HIGH, Ferritin LOW B12, Folate NORMAL Meds: s/p 2units pRBC 11/27/17 Protonix 40mg IVP Q12H Ferrlicet 125mg IV ONCE 11/28/17 Restarted diet - heart healthy Imaging: Pelvic/Transvaginal US 05/2017: Uterus/cervix: Transvaginally the endometrial stripe measures 1.7 CM. A fibroid in the anterior mid uterus measures 2.7 x 2.5 x 2.7 CM. A second fibroid in the posterior mid uterus measures 1.7 x 2.0 x 1.7 CM. Pelvic/Abd CT w/ IV contrast 05/2017: 1. Moderate to large amount retained stool. Correlate for constipation. 2. Small amount of free fluid in the pelvis. Status: Acute Priority: High (2) Uterine fibroid Assessment and Plan: Patient with known hx of Uterine Fibroids w/ heavy bleeding Chart review shows patient was to have a hysterectomy with TRANSITION RN Dr. Sarath Chow - will follow-up Vaginal ultrasound cancelled 11/27/17 due to patient becoming unresponsive Imaging: Pelvic/Transvaginal US 05/2017: Uterus/cervix: Transvaginally the endometrial stripe measures 1.7 CM. A fibroid in the anterior mid uterus measures 2.7 x 2.5 x 2.7 CM. A second fibroid in the posterior mid uterus measures 1.7 x 2.0 x 1.7 CM. 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 Help appreciated. * See EGD results and GI plan shown above. Labs/Diagnostics: Lipase NORMAL, AST/ALT UPTRENDING HCG NEGATIVE Non-drinker, UDS NEGATIVE Meds: Protonix 40mg IVP Q12H Restarted diet - Heart Healthy Imaging: Pelvic/Abd CT w/ IV contrast 05/2017: 1. Moderate to large amount retained stool. Correlate for constipation. 2. Small amount of free fluid in the pelvis. Status: Acute Priority: High (4) Prophylactic measure Assessment and Plan: Protonix 40mg IVP Q12H SCDs NPO for now AO contraindicated 2/2 to anemia Status: Acute Priority: High Disposition: She will need to follow-up with her outpatient OBGYN Dr. Sarath Chow regarding her previously planned but unperformed hysterectomy. She will need to be discharged with PPI and Feosol tablets. Discharge Exam - Head Exam Head Exam: ATRAUMATIC, NORMOCEPHALIC - Additional Findings Additional findings: - Constitutional Additional comments: Lethargic - Head Exam Head Exam: ATRAUMATIC, NORMAL INSPECTION - Eye Exam Eye Exam: EOMI Pupil Exam: PERRL - ENT Exam ENT Exam: Mucous Membranes Dry - Neck Exam Neck exam: Positive for: Normal Inspection. Negative for: Lymphadenopathy, Tenderness - Respiratory Exam Respiratory Exam: Clear to Auscultation Bilateral, NORMAL BREATHING PATTERN. absent: Rales, Rhonchi, Wheezes - Cardiovascular Exam Cardiovascular Exam: REGULAR RHYTHM, +S1, +S2. absent: Bradycardia, Tachycardia , JVD, Systolic Murmur - GI/Abdominal Exam GI & Abdominal Exam: Normal Bowel Sounds, Soft, Tenderness. absent: Distended, Firm, Guarding, Hernia, Mass, Rebound, Rigid Additional comments: Tenderness to palpation in epigastric region - Rectal Exam Rectal Exam: Deferred - Extremities Exam Extremities exam: Positive for: full ROM, normal capillary refill, normal inspection, pedal pulses present. Negative for: calf tenderness, tenderness - Neurological Exam Neurological exam: Alert, Oriented x3 - Skin Skin Exam: Intact, Pallor, Warm Discharge Plan - Discharge Medications Prescriptions: Ferrous Sulfate 325 mg PO DAILY 30 Days #30 tablet Pantoprazole [Protonix] 40 mg PO DAILY 30 Days #30 ect - Follow Up Plan Condition: FAIR Disposition: HOME/ ROUTINE Additional Instructions: Patient is medically stable for discharge. Patient should take the following medications which will be electronically sent to her pharmacy ([facility] at [address] [place] [address]) 1. Protonix 40mg by mouth once a day (this will protect your stomach) 2. Ferrous Sulfate by mouth once a day (this will keep your iron levels at normal levels) Patient should follow-up with her OBGYN Dr. Sarath Chow so she may have a hysterectomy as we believe her low blood levels are due to her heavy bleeding due to her fibroids. Dr Sarath Chow [address] [place] [id number] Patient should avoid taking aspirin, ibuprofen, motrin or other NSAIDS. Please establish care with primary medical doctor so if symptoms like this occur in the future you will be able to go to your primary medical doctor and avoid a hospital admission. A primary medical doctor can also refer you to a GI doctor (stomach doctor) for continuing care. If symptoms return please go to your nearest emergency department. Referrals: [facility] [Outside]
[2017-11-28] MEDS ORDERED: Potassium Chloride 20 mEq ER Tab PO ONE (17:46)
[2017-11-28 20:34] VITALS: PULSE 84
[2017-11-29] MEDS ORDERED: Potassium Chloride 20 mEq ER Tab PO ONE (17:13)
== END 2017-11-28 18:30 | disposition home or self-care (01) | DRG 395 ==
LOC: SUPCPDRO 04:04 → C.ER 04:04 → C.9E 08:20 → C.5S 09:04 → C.6T 11-28 16:13
PROVIDERS: ADMIT Internal Medicine; ATTEND Internal Medicine
PROC: 30233N1 Transfusion of Nonautologous Red Blood Cells into Peripheral Vein, Percutaneous Approach (ICD-10-PCS; 2017-11-27)
PROC: 0DB98ZX Excision of Duodenum, Via Natural or Artificial Opening Endoscopic, Diagnostic (ICD-10-PCS; 2017-11-28)
PROC: 0DB68ZX Excision of Stomach, Via Natural or Artificial Opening Endoscopic, Diagnostic (ICD-10-PCS; principal; 2017-11-28 14:00)
DX: D50.9 Iron deficiency anemia, unspecified (principal); D25.9 Leiomyoma of uterus, unspecified; K29.70 Gastritis, unspecified, without bleeding; G43.909 Migraine, unspecified, not intractable, without status migrainosus; R53.1 Weakness; F32.9 Major depressive disorder, single episode, unspecified; R55 Syncope and collapse; I95.9 Hypotension, unspecified; Z79.1 Long term (current) use of non-steroidal anti-inflammatories (NSAID); K59.00 Constipation, unspecified

== ENCOUNTER 2017-12-25 16:47 | Emergency (ER) | payer OTHER, SELFPAY ==
[2017-12-25 16:58] VITALS: BMI 26.9
[2017-12-25 17:21] VITALS: TEMP 99
[2017-12-25] MEDS ORDERED: Sodium Chloride 0.9% 1,000 ML IV ONE ×2 (17:27→18:39)
[2017-12-25] MEDS ORDERED: Sodium Chloride 0.9% 1,000 ML ONE (17:45)
[2017-12-25 17:53] LABS: BASO # 0.1 K/uL (0.0-0.2); BASO % 1.2 % (0.0-2.0); EOS # 0.1 K/uL (0.0-0.7); EOS % 1.5 % (0.0-4.0); HEMOGLOBIN 11.2 g/dL (11.0-16.0); LYMPH # 1.6 K/uL (1.0-4.3); LYMPH % 31.9 % (20.0-40.0); MEAN CELL VOLUME 76.1 fL (81.0-99.0); MEAN CORPUSCULAR HEMOGLOBIN 24.9 pg (27.0-31.0); MEAN CORPUSCULAR HGB CONC 32.7 g/dL (33.0-37.0); MEAN PLATELET VOLUME 8.7 fL (7.2-11.7); MONO # 0.3 K/uL (0.0-0.8); MONO % 5.2 % (0.0-10.0); NEUT # 3.1 K/uL (1.8-7.0); NEUT % 60.2 % (50.0-75.0); RBC 4.49 Mil/uL (3.80-5.20); RED CELL DISTRIBUTION WIDTH 29.4 % (11.5-14.5); WHITE BLOOD COUNT 5.1 K/uL (4.8-10.8)
--- NOTE | 2017-12-25 18:12 | C.PDOC ---
History Of Present Illness 37-year-old female, PMHx includes Anemia, presents to the emergency department with complaints feeling weak and light headed for the past three days. Patient notes she developed shortness of breath today. Patient started menses 12/20 and was bleeding heavy for five days, and today light. Patient also complains of associated nausea. She states last time she felt this way needed blood transfusion. Denies fever or chills. Time Seen by Provider: 12/25/17 17:26 Chief Complaint (Nursing): Dizziness/Lightheaded History Per: Patient History/Exam Limitations: no limitations Current Symptoms Are (Timing): Still Present Past Medical History Reviewed: Historical Data, Nursing Documentation, Vital Signs Vital Signs: Last Vital Signs Temp 99 F 12/25/17 17:17 Pulse 81 12/25/17 17:17 Resp 18 12/25/17 17:17 BP 108/58 L 12/25/17 17:17 Pulse Ox 98 12/25/17 18:26 - Medical History PMH: Anemia, Depression, Migraine Surgical History: Appendectomy, Cholecystectomy - [facility] Procedures EXCISION OF DUODENUM, ENDO, DIAGN (11/27/17) EXCISION OF STOMACH, ENDO, DIAGN (11/27/17) TRANSFUSE NONAUT RED BLOOD CELLS IN PERIPH VEIN, PERC (11/27/17) Family History: States: No Known Family Hx - Social History Hx Alcohol Use: No Hx Substance Use: No - Immunization History Hx Tetanus Toxoid Vaccination: No Hx Influenza Vaccination: No Hx Pneumococcal Vaccination: No Review Of Systems Constitutional: Positive for: Weakness. Negative for: Fever Cardiovascular: Positive for: Light Headedness (3 days). Negative for: Chest Pain Respiratory: Positive for: Shortness of Breath Gastrointestinal: Negative for: Vomiting, Abdominal Pain Musculoskeletal: Negative for: Back Pain Physical Exam - Physical Exam Appears: No Acute Distress Skin: Warm, Dry, Pale, No Rash Head: Atraumatic, Normacephalic Eye(s): bilateral: Normal Inspection, PERRL, EOMI Nose: Normal Oral Mucosa: Moist Lips: Normal Appearing Neck: Normal ROM Chest: Symmetrical Cardiovascular: Rhythm Regular, No Murmur Respiratory: Normal Breath Sounds, No Accessory Muscle Use Gastrointestinal/Abdominal: Soft, Tenderness (mild, suprapubic), No Guarding, No Rebound Extremity: Normal ROM, No Deformity, No Swelling Neurological/Psych: Oriented x3, Normal Speech Gait: Unable To Assess ED Course And Treatment - Laboratory Results Result Diagrams: 12/25/17 18:34 12/25/17 17:37 Lab Interpretation: No Acute Changes ECG: Interpreted By Me, Viewed By Me ECG Rhythm: Sinus Rhythm ECG Interpretation: No Acute Changes Rate From EC O2 Sat by Pulse Oximetry: 98 (RA) Pulse Ox Interpretation: Normal Medical Decision Making Medical Decision Making: Impression: vaginal bleeding Plan: * EKG * Bloodwork * Meclizine, IVFs * UA Progress: Labs reviewed, Hgb is 11. PAtinet continues to feel dizzy and orthostatics are low. Will order additional fluids and repeat CBC 1858 Hgb is 9. Patient is still receiving IV fluids. Case to be signed out to Dr Chauhan pending IV infusion completion, re-eval and dispo. Disposition - Disposition Disposition Time: 19:01 Condition: STABLE - POA Present On Arrival: None - Clinical Impression Clinical Impression: Dizziness, Vaginal bleeding - Scribe Statement The provider has reviewed the documentation as recorded by the Scribe (Harry Demarco) All medical record entries made by the Scribe were at my direction and personally dictated by me. I have reviewed the chart and agree that the record accurately reflects my personal performance of the history, physical exam, medical decision making, and the department course for this patient. I have also personally directed, reviewed, and agree with the discharge instructions and disposition.
[2017-12-25 18:29] LABS: ALB/GLOB RATIO 1.2 (1.0-2.1); ALBUMIN 4.4 g/dL (3.5-5.0); ALT/SGPT 19 U/L (9-52); AST/SGOT 26 U/L (14-36); BLOOD UREA NITROGEN 7 mg/dL (7-17); CALCIUM 9.2 mg/dl (8.6-10.4); GFR AFRICAN-AMERICAN > 60; GFR NON-AFRICAN AMERICAN > 60
[2017-12-25 18:40] LABS: MEAN CORPUSCULAR HEMOGLOBIN 24.7 pg (27.0-31.0); MEAN CORPUSCULAR HGB CONC 32.4 g/dL (33.0-37.0); MEAN PLATELET VOLUME 8.2 fL (7.2-11.7); RBC 3.66 Mil/uL (3.80-5.20); RED CELL DISTRIBUTION WIDTH 29.4 % (11.5-14.5); WHITE BLOOD COUNT 5.1 K/uL (4.8-10.8)
[2017-12-25 18:47] LABS: SQUAMOUS EPITHIAL 28 /hpf (0-5); URINE BACTERIA RARE (<OCC); URINE BILIRUBIN NEGATIVE (NEGATIVE); URINE BLOOD 3+ (NEGATIVE); URINE CLARITY Hazy (Clear); URINE COLOR Red (YELLOW); URINE GLUCOSE (UA) NORMAL (Normal); URINE LEUKOCYTE ESTERASE NEG Leu/uL (Negative); URINE PROTEIN 2+ mg/dL (NEGATIVE); URINE UROBILINOGEN NORMAL mg/dL (0.2-1.0)
[2017-12-25 18:51] LABS: HCG,QUALITATIVE URINE NEGATIVE (NEGATIVE)
[2017-12-25 20:13] VITALS: BP 96/55; PULSE 72; RESP 16; O2SAT 100
--- NOTE | 2017-12-27 13:17 | CARD ---
APPROVED REPORT EKG Measurement Heart [id number] ID [id number] <Conclusion> Normal sinus rhythm Nonspecific ST abnormality Abnormal ECG
== END 2017-12-25 21:48 | disposition left against medical advice (07) ==
LOC: C.ER 16:47
DX: R42 Dizziness and giddiness (principal); N93.9 Abnormal uterine and vaginal bleeding, unspecified
CPT/HCPCS: 80053; 81001; 84703; 85025; 85027; 96360; 96361; 99285; J7040

== ENCOUNTER 2018-02-06 19:46 | Inpatient (IN) | payer MEDICAID, SELFPAY ==
[2018-02-06 19:47] VITALS: BMI 24.5
[2018-02-06] MEDS ORDERED: Sodium Chloride 0.9% 1,000 ML IV STA (20:22)
[2018-02-06] MEDS ORDERED: Sodium Chloride 0.9% 1,000 ML ONE (20:29)
[2018-02-06 20:31] LABS: BASO % 0.5 % (0.0-2.0); EOS # 0.1 K/uL (0.0-0.7); EOS % 0.8 % (0.0-4.0); HEMOGLOBIN 10.9 g/dL (11.0-16.0); LYMPH # 0.8 K/uL (1.0-4.3); MEAN CELL VOLUME 79.4 fL (81.0-99.0); MEAN CORPUSCULAR HEMOGLOBIN 26.3 pg (27.0-31.0); MEAN CORPUSCULAR HGB CONC 33.2 g/dL (33.0-37.0); MEAN PLATELET VOLUME 8.4 fL (7.2-11.7); MONO # 0.3 K/uL (0.0-0.8); MONO % 3.5 % (0.0-10.0); NEUT # 7.8 K/uL (1.8-7.0); NEUT % 86.2 % (50.0-75.0); PLATELET COUNT 257 K/uL (130-400); RBC 4.13 Mil/uL (3.80-5.20); RED CELL DISTRIBUTION WIDTH 21.8 % (11.5-14.5)
--- NOTE | 2018-02-06 20:41 | C.PDOC ---
History Of Present Illness Patient is a 38 y/o female, with a Hx of anemia, cholecystectomy, appendectomy, and , who presents to the ED with mother complaining of gradually worsening suprapubic pain that radiates to bilateral flanks for the past 1 week. Patient notes subjective fever with Tmax 103. Admits to one episode of vomiting today, non-bloody and non-bilious. Denies taking any medications. No other physical complaints at this time. Time Seen by Provider: 02/06/18 20:11 Chief Complaint (Nursing): Abdominal Pain History Per: Patient History/Exam Limitations: no limitations Onset/Duration Of Symptoms: Days (1 week), Gradual, Worse Since Current Symptoms Are (Timing): Still Present Location Of Pain/Discomfort: Suprapubic Radiation Of Pain To:: Flank (bilateral) Associated Symptoms: Fever (Tma 103), Vomiting (x1) Recent travel outside of the [place]: No Past Medical History Reviewed: Historical Data, Nursing Documentation, Vital Signs Vital Signs: Last Vital Signs Temp 100.4 F H 02/06/18 20:41 Pulse 88 02/06/18 20:41 Resp 18 02/06/18 20:41 BP 108/55 L 02/06/18 20:41 Pulse Ox 98 02/06/18 21:06 - Medical History PMH: Anemia, Depression, Migraine Denies: Diabetes, Hepatitis, HIV, HTN, Chronic Kidney Disease, Seizures, Sexually Transmitted Disease Surgical History: Appendectomy, Cholecystectomy, - [facility] Procedures EXCISION OF DUODENUM, ENDO, DIAGN (11/27/17) EXCISION OF STOMACH, ENDO, DIAGN (11/27/17) TRANSFUSE NONAUT RED BLOOD CELLS IN PERIPH VEIN, PERC (11/27/17) Family History: States: No Known Family Hx - Social History Hx Tobacco Use: No Hx Alcohol Use: No Hx Substance Use: No - Immunization History Hx Tetanus Toxoid Vaccination: No Hx Influenza Vaccination: No Hx Pneumococcal Vaccination: No Review Of Systems Except As Marked, All Systems Reviewed And Found Negative. Constitutional: Positive for: Fever Gastrointestinal: Positive for: Vomiting, Abdominal Pain (suprapubic). Negative for: Diarrhea, Constipation Physical Exam - Physical Exam Additional Physical Exam Comments: Constitutional: No acute distress. Head: Normocephalic. Atraumatic. Eyes: PERRL. ENT: Moist mucous membranes. Neck: Supple. Cardiovascular: Regular rate. Radial pulse 2+ bilaterally. Chest: No tenderness. Respiratory: Clear to auscultation bilaterally. GI: Soft. Suprapubic tenderness. Nondistended. Back: Bilateral CVA tenderness. Musculoskeletal: No tenderness or swelling of extremities. Skin: No rash. Neurologic: Alert, no focal deficit. ED Course And Treatment - Laboratory Results Result Diagrams: 02/06/18 20:26 02/06/18 20:26 O2 Sat by Pulse Oximetry: 98 Progress Note: Blood work, UA, and CBC ordered. Toradol, zofran, and IV fluids administered. Medical Decision Making Medical Decision Making: UTI, no leukocytosis or bandemia. Vital signs normal. Will discharge, PO antibiotics, Zofran, f/u PMD, return for intractible vomiting, worsening pain, fever, dyspnea, or any other problem. Disposition - Disposition Disposition: HOME/ ROUTINE Disposition Time: 21:06 Condition: STABLE Prescriptions: Ciprofloxacin [Cipro] 500 mg PO BID #14 tab Ibuprofen [Motrin] 600 mg PO Q6 #25 tab Ondansetron ODT [Zofran ODT] 4 mg PO Q8 #12 odt Phenazopyridine [Pyridium] 1 tab PO Q8 #6 tab Instructions: Urinary Tract Infections in Adults Forms: [facility] (French) - Clinical Impression Clinical Impression: UTI (urinary tract infection) - Scribe Statement The provider has reviewed the documentation as recorded by the Scribe Michelle Georges All medical record entries made by the Scribe were at my direction and personally dictated by me. I have reviewed the chart and agree that the record accurately reflects my personal performance of the history, physical exam, medical decision making, and the department course for this patient. I have also personally directed, reviewed, and agree with the discharge instructions and disposition.
[2018-02-06 20:45] LABS: ALB/GLOB RATIO 1.1 (1.0-2.1); ALBUMIN 4.1 g/dL (3.5-5.0); ALT/SGPT 24 U/L (9-52); AST/SGOT 23 U/L (14-36); BLOOD UREA NITROGEN 13 mg/dL (7-17); CALCIUM 9.1 mg/dl (8.6-10.4); GFR AFRICAN-AMERICAN > 60; GFR NON-AFRICAN AMERICAN > 60; LIPASE 142 U/L (23-300)
[2018-02-06 20:54] LABS: SQUAMOUS EPITHIAL 2 /hpf (0-5); URINE BACTERIA MOD (<OCC); URINE BILIRUBIN NEGATIVE (NEGATIVE); URINE BLOOD 2+ (NEGATIVE); URINE CLARITY Hazy (Clear); URINE COLOR Yellow (YELLOW); URINE GLUCOSE (UA) NORMAL (Normal); URINE LEUKOCYTE ESTERASE 2+ Leu/uL (Negative); URINE PROTEIN NEGATIVE (NEGATIVE); URINE UROBILINOGEN NORMAL mg/dL (0.2-1.0)
[2018-02-06 21:17] LABS: BANDS 1 % (0-2); EOSINOPHIL 2 % (0-4); LYMPHOCYTE 11 % (20-40); MONOCYTE 3 % (0-10); NEUTROPHIL 83 % (50-75); TOTAL CELLS COUNTED 100
[2018-02-06 21:18] LABS: MICROCYTOSIS SLIGHT; PLATELET ESTIMATE NORMAL (NORMAL)
[2018-02-06 22:00] LABS: ABG ALLEN TEST POS; ARTERIAL BLOOD GAS HCO3 23.3 mmol/L (21-28); ARTERIAL BLOOD GAS O2 SAT 99.3 % (95-98); ARTERIAL BLOOD GAS PCO2 31 mm/Hg (35-45); ARTERIAL BLOOD GAS PH 7.44 (7.35-7.45); ARTERIAL BLOOD GAS PO2 106 mm/Hg (80-100); ARTERIAL BLOOD GAS TCO2 22.1 mmol/L (22-28)
[2018-02-06] MEDS ORDERED: Lactated Ringer's 1,000 ML IV SCH ×2 (23:45→23:46)
--- NOTE | 2018-02-07 00:21 | CP.PCM.HP ---
<Benita Robison - Last Filed: 02/07/18 00:21> History of Present Illness - History of Present Illness History of Present Illness: CC: 38-year-old female presents to the ED for evaluation of suprapubic pain for 1 week. Patient reports 1 week of painful and burning urination with reddish urine , back pain, and pain in bilateral lower extremities when walking. Patient reports fevers and chills which started yesterday, Tmax 103. Patient denies taking medication for pain. Patient states this is the first episode. Patient reports dizziness, chest pain, shortness of breath, and cough which started today. Patient denies nausea/vomiting/diarrhea/constipation, numbness/ paresthesia in extremities, saddle anesthesia. LMP was January 15. Review of records shows patient was admitted in October 2017 for symptomatic anemia secondary to uterine fibroids. Patient has since followed up with OBGYN who recommends hysterectomy but patient has not had surgery yet due to not being able to afford it at this time. PMHx: fibroids, migraine, depression, chronic anemia PSHx: 4 sections, appendectomy and as per prior charts cholecystectomy Home meds: Motrin as needed Family Hx: unknown Social Hx: Patient denies smoking, drinking or recreational drug use. 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 Chart review shows patient is recently . Allergies: [facility] OBGYN: Dr. Sarath Chow Present on Admission - Present on Admission Any Indicators Present on Admission: No History of DVT/PE: No History of Uncontrolled Diabetes: No Urinary Catheter: No Decubitus Ulcer Present: No Review of Systems - Review of Systems All systems: reviewed and no additional remarkable complaints except Past Patient History - Infectious Disease Hx of Infectious Diseases: None - Past Social History Smoking Status: Never Smoked Chewing Tobacco Use: No Cigar Use: No Alcohol: None Domestic Violence: Negative - CARDIAC Hx Hypertension: No - PULMONARY Hx Tuberculosis: No - NEUROLOGICAL Hx Migraine: Yes Hx Seizures: No - HEENT Hx HEENT Problems: No - RENAL Hx Chronic Kidney Disease: No - ENDOCRINE/METABOLIC Other/Comment: "low blood sugar" - HEMATOLOGICAL/ONCOLOGICAL Hx Anemia: Yes Hx Human Immunodeficiency Virus (HIV): No - INTEGUMENTARY Hx Dermatological Problems: No - MUSCULOSKELETAL/RHEUMATOLOGICAL Hx Falls: No - GASTROINTESTINAL Hx Gastrointestinal Disorders: No - GENITOURINARY/GYNECOLOGICAL Hx Sexually Transmitted Disorders: No - PSYCHIATRIC Hx Depression: Yes Hx Substance Use: No - SURGICAL HISTORY Hx Appendectomy: Yes Hx Cholecystectomy: Yes - ANESTHESIA Hx Anesthesia: Yes Hx Anesthesia Reactions: No Meds Home Medications: Home Medication List Medication Instructions Recorded Confirmed Type Ciprofloxacin [Cipro] 500 mg PO BID #14 tab 02/06/18 Rx Ibuprofen [Motrin] 600 mg PO Q6 #25 tab 02/06/18 Rx Ondansetron ODT [Zofran ODT] 4 mg PO Q8 #12 odt 02/06/18 Rx Phenazopyridine [Pyridium] 1 tab PO Q8 #6 tab 02/06/18 Rx Allergies/Adverse Reactions: Allergies Allergy/AdvReac Type Severity Reaction Status Date / Time No Known Allergies Allergy Verified 02/06/18 19:52 Physical Exam - Constitutional Appears: No Acute Distress - Head Exam Head Exam: ATRAUMATIC, NORMAL INSPECTION, NORMOCEPHALIC Additional comments: discoloration of skin on cheeks, darker brown pigmentation - Eye Exam Eye Exam: EOMI, Normal appearance Pupil Exam: NORMAL ACCOMODATION, PERRL - ENT Exam ENT Exam: Mucous Membranes Moist, Normal Exam - Neck Exam Neck exam: Positive for: Normal Inspection - Respiratory Exam Respiratory Exam: Clear to Auscultation Bilateral, NORMAL BREATHING PATTERN. absent: Accessory Muscle Use, Chest Wall Tenderness - Cardiovascular Exam Cardiovascular Exam: REGULAR RHYTHM, +S1, +S2. absent: Bradycardia, Tachycardia - GI/Abdominal Exam GI & Abdominal Exam: Guarding, Soft, Tenderness (right lower and left lower quadrant to deep palpation). absent: Firm, Organomegaly, Rigid - Extremities Exam Extremities exam: Positive for: full ROM, normal capillary refill, normal inspection, pedal pulses present. Negative for: joint swelling, pedal edema - Neurological Exam Neurological exam: Alert, CN II-XII Intact - Psychiatric Exam Psychiatric exam: Normal Affect, Normal Mood - Skin Skin Exam: Dry, Intact, Normal Color, Warm Results - Vital Signs Recent Vital Signs: Last Vital Signs Temp 100.4 F H 02/06/18 20:41 Pulse 88 02/06/18 20:41 Resp 18 02/06/18 20:41 BP 108/55 L 02/06/18 20:41 Pulse Ox 98 02/06/18 21:22 - Labs Result Diagrams: 02/06/18 20:26 02/06/18 20:26 Labs: Laboratory Results - last 24 hr 02/06/18 02/06/18 02/06/18 20:20 20:26 20:26 WBC 9.0 D RBC 4.13 Hgb 10.9 L Hct 32.8 L MCV 79.4 L MCH 26.3 L MCHC 33.2 RDW 21.8 H Plt Count 257 MPV 8.4 Neut % (Auto) 86.2 H Lymph % (Auto) 9.0 L [place] % (Auto) 3.5 Eos % (Auto) 0.8 Baso % (Auto) 0.5 Neut # (Auto) 7.8 H Lymph # (Auto) 0.8 L [place] # (Auto) 0.3 Eos # (Auto) 0.1 Baso # (Auto) 0.0 Neutrophils % (Manual) 83 H Band Neutrophils % 1 Lymphocytes % (Manual) 11 L Monocytes % (Manual) 3 Eosinophils % (Manual) 2 Platelet Estimate Normal Microcytosis (manual) Slight Puncture Site pCO2 pO2 HCO3 ABG pH ABG Total CO2 ABG O2 Saturation ABG Base Excess Ellis Test ABG Potassium A-a O2 Difference Respiratory Index Glucose Lactate Liter Flow FiO2 Sodium 137 Potassium 3.9 Chloride 100 Carbon Dioxide 25 Anion Gap 16 BUN 13 Creatinine 0.6 L Est GFR ( Amer) > 60 Est GFR (Non-Af Amer) > 60 Random Glucose 91 Calcium 9.1 Total Bilirubin 0.7 AST 23 ALT 24 Alkaline Phosphatase 107 Total Protein 7.8 Albumin 4.1 Globulin 3.7 Albumin/Globulin Ratio 1.1 Lipase 142 Arterial Blood Potassium Urine Color Urine Clarity Urine pH Ur Specific [place] Urine Protein Urine Glucose (UA) Urine Ketones Urine Blood Urine Nitrate Urine Bilirubin Urine Urobilinogen Ur Leukocyte Esterase Urine WBC (Auto) Urine RBC (Auto) Ur Squamous Epith Cells Urine Bacteria Urine HCG, Qual Negative 02/06/18 02/06/18 20:43 21:57 WBC RBC Hgb Hct MCV MCH MCHC RDW Plt Count MPV Neut % (Auto) Lymph % (Auto) [place] % (Auto) Eos % (Auto) Baso % (Auto) Neut # (Auto) Lymph # (Auto) [place] # (Auto) Eos # (Auto) Baso # (Auto) Neutrophils % (Manual) Band Neutrophils % Lymphocytes % (Manual) Monocytes % (Manual) Eosinophils % (Manual) Platelet Estimate Microcytosis (manual) Puncture Site Rba pCO2 31 L pO2 106 H HCO3 23.3 ABG pH 7.44 ABG Total CO2 22.1 ABG O2 Saturation 99.3 H ABG Base Excess -2.1 L Ellis Test Pos ABG Potassium 3.2 L A-a O2 Difference 5.0 Respiratory Index 0 Glucose 91 Lactate 0.6 L Liter Flow 0 FiO2 21.0 Sodium 135.0 Potassium Chloride 107.0 Carbon Dioxide Anion Gap BUN Creatinine Est GFR ( Amer) Est GFR (Non-Af Amer) Random Glucose Calcium Total Bilirubin AST ALT Alkaline Phosphatase Total Protein Albumin Globulin Albumin/Globulin Ratio Lipase Arterial Blood Potassium 3.2 L Urine Color Yellow Urine Clarity Hazy Urine pH 7.0 Ur Specific [place] 1.012 Urine Protein Negative Urine Glucose (UA) Normal Urine Ketones Negative Urine Blood 2+ H Urine Nitrate Positive H Urine Bilirubin Negative Urine Urobilinogen Normal Ur Leukocyte Esterase 2+ H Urine WBC (Auto) 114 H Urine RBC (Auto) 4 H Ur Squamous Epith Cells 2 Urine Bacteria Mod H Urine HCG, Qual Assessment & Plan - Assessment and Plan (Free Text) Assessment: Pyelonephritis, Urosepsis without leukocytosis on admission: fever, cva tenderness monitor CBC, CMP UA positive, f/u urine cx cipro 400 mg IV Q12H Tylenol 650 mg PO Q6H PRN fever Toradol 30 mg IVP Q6H PRN pain LR @150cc/hr SOB and cough, O2 saturations 98-100% on RA CXR EKG chronic anemia monitor cbc Prophylaxis Heparin 5000 sc Q8H SCDs discussed with Dr. Fartun Robison DO PGY1 - Date & Time Date: 02/07/18 Time: 00:29 <Olu Willoughby - Last Filed: 02/07/18 06:36> Results - Vital Signs Recent Vital Signs: Last Vital Signs Temp 97.9 F 02/07/18 00:47 Pulse 85 02/07/18 00:47 Resp 20 02/07/18 00:47 BP 104/49 L 02/07/18 00:47 Pulse Ox 98 02/07/18 00:47 - Labs Result Diagrams: 02/06/18 20:26 02/06/18 20:26 Labs: Laboratory Results - last 24 hr 02/06/18 02/06/18 02/06/18 20:20 20:26 20:26 WBC 9.0 D RBC 4.13 Hgb 10.9 L Hct 32.8 L MCV 79.4 L MCH 26.3 L MCHC 33.2 RDW 21.8 H Plt Count 257 MPV 8.4 Neut % (Auto) 86.2 H Lymph % (Auto) 9.0 L [place] % (Auto) 3.5 Eos % (Auto) 0.8 Baso % (Auto) 0.5 Neut # (Auto) 7.8 H Lymph # (Auto) 0.8 L [place] # (Auto) 0.3 Eos # (Auto) 0.1 Baso # (Auto) 0.0 Neutrophils % (Manual) 83 H Band Neutrophils % 1 Lymphocytes % (Manual) 11 L Monocytes % (Manual) 3 Eosinophils % (Manual) 2 Platelet Estimate Normal Microcytosis (manual) Slight PT INR APTT Puncture Site pCO2 pO2 HCO3 ABG pH ABG Total CO2 ABG O2 Saturation ABG Base Excess Ellis Test ABG Potassium A-a O2 Difference Respiratory Index Glucose Lactate Liter Flow FiO2 Sodium 137 Potassium 3.9 Chloride 100 Carbon Dioxide 25 Anion Gap 16 BUN 13 Creatinine 0.6 L Est GFR ( Amer) > 60 Est GFR (Non-Af Amer) > 60 Random Glucose 91 Calcium 9.1 Total Bilirubin 0.7 AST 23 ALT 24 Alkaline Phosphatase 107 Total Protein 7.8 Albumin 4.1 Globulin 3.7 Albumin/Globulin Ratio 1.1 Lipase 142 Arterial Blood Potassium Urine Color Urine Clarity Urine pH Ur Specific [place] Urine Protein Urine Glucose (UA) Urine Ketones Urine Blood Urine Nitrate Urine Bilirubin Urine Urobilinogen Ur Leukocyte Esterase Urine WBC (Auto) Urine RBC (Auto) Ur Squamous Epith Cells Urine Bacteria Urine HCG, Qual Negative 02/06/18 02/06/18 02/07/18 20:43 21:57 00:55 WBC RBC Hgb Hct MCV MCH MCHC RDW Plt Count MPV Neut % (Auto) Lymph % (Auto) [place] % (Auto) Eos % (Auto) Baso % (Auto) Neut # (Auto) Lymph # (Auto) [place] # (Auto) Eos # (Auto) Baso # (Auto) Neutrophils % (Manual) Band Neutrophils % Lymphocytes % (Manual) Monocytes % (Manual) Eosinophils % (Manual) Platelet Estimate Microcytosis (manual) PT 11.9 INR 1.1 APTT 28 Puncture Site Rba pCO2 31 L pO2 106 H HCO3 23.3 ABG pH 7.44 ABG Total CO2 22.1 ABG O2 Saturation 99.3 H ABG Base Excess -2.1 L Ellis Test Pos ABG Potassium 3.2 L A-a O2 Difference 5.0 Respiratory Index 0 Glucose 91 Lactate 0.6 L Liter Flow 0 FiO2 21.0 Sodium 135.0 Potassium Chloride 107.0 Carbon Dioxide Anion Gap BUN Creatinine Est GFR ( Amer) Est GFR (Non-Af Amer) Random Glucose Calcium Total Bilirubin AST ALT Alkaline Phosphatase Total Protein Albumin Globulin Albumin/Globulin Ratio Lipase Arterial Blood Potassium 3.2 L Urine Color Yellow Urine Clarity Hazy Urine pH 7.0 Ur Specific [place] 1.012 Urine Protein Negative Urine Glucose (UA) Normal Urine Ketones Negative Urine Blood 2+ H Urine Nitrate Positive H Urine Bilirubin Negative Urine Urobilinogen Normal Ur Leukocyte Esterase 2+ H Urine WBC (Auto) 114 H Urine RBC (Auto) 4 H Ur Squamous Epith Cells 2 Urine Bacteria Mod H Urine HCG, Qual Assessment & Plan - Date & Time Date: 02/07/18 (I have seen and examined the patient. I agree with the findings and plan of care as documented by Dr. Robison. Patient with pyelonephritis. SIRs criteria met in ED. Continue cipro. Check urine and blood cultures. Monitor CBC due to history of anemia. Monitor for acute changes.) Time: 06:36 Attending/Attestation - Attestation I have personally seen and examined this patient.: Yes I have fully participated in the care of the patient.: Yes I have reviewed all pertinent clinical information: Yes
[2018-02-07 00:48] VITALS: RESP 20
[2018-02-07 00:50] LABS: INR 1.1; PROTHROMBIN TIME 11.9 SECONDS (9.7-12.2)
[2018-02-07] MEDS ORDERED: Lactated Ringer's 1,000 ML IV SCH ×2 (07:06→08:20)
[2018-02-07] MEDS ORDERED: Ciprofloxacin 400mg/200ml D5W 400 MG/200 ML BAG IVPB SCH (08:00)
--- NOTE | 2018-02-07 08:08 | RAD ---
Chest x-ray single frontal view History: Shortness of breath. Comparison: 04/23/2017 Findings: Mild venous congestion. Heart size within normal limits. Impression: Mild venous congestion. Heart size within normal limits.
[2018-02-07] MEDS ORDERED: Morphine 4 MG/ML VIAL IV PRN (09:25)
[2018-02-07] MEDS ORDERED: Morphine 4 MG/ML VIAL IV ONE (09:25)
[2018-02-07] MEDS: Lactated Ringer's 1,000 ML IV SCH ×4 (09:46→22:41)
[2018-02-07] MEDS ORDERED: Sodium Chloride 0.9% 1,000 ML IV ONE ×2 (11:18→14:54)
[2018-02-07] MEDS ORDERED: HYDROmorphone 1 mg/ml ISec IVP PRN ×2 (11:24→13:31)
--- NOTE | 2018-02-07 12:07 | CT ---
PROCEDURE: CT Abdomen and Pelvis without intravenous contrast HISTORY: uti symptoms, hx of kidney stones COMPARISON: CT scan of the abdomen and pelvis dated 05/14/2017. TECHNIQUE: Contiguous images were obtained from the domes of the diaphragms to the upper thighs without the administration of intravenous contrast. Oral contrast was not administered. Radiation dose: Total exam DLP = 355 mGy-cm. This CT exam was performed using one or more of the following dose reduction techniques: Automated exposure control, adjustment of the mA and/or kV according to patient size, and/or use of iterative reconstruction technique. FINDINGS: LOWER THORAX: Unremarkable. LIVER: Unremarkable. No gross lesion or ductal dilatation. GALLBLADDER AND BILE DUCTS: Prior cholecystectomy with surgical clips in place. PANCREAS: Unremarkable. No gross lesion or ductal dilatation. SPLEEN: Unremarkable. ADRENALS: Unremarkable. No mass. KIDNEYS AND URETERS: Left perinephric stranding. No hydronephrosis. No solid mass. VASCULATURE: Unremarkable. No aortic aneurysm. BOWEL: Unremarkable. No obstruction. No gross mural thickening. APPENDIX: Not visualized. PERITONEUM: Unremarkable. No free fluid. No free air. LYMPH NODES: Unremarkable. No enlarged lymph nodes. BLADDER: Unremarkable. REPRODUCTIVE: Uterine fibroids. BONES: No acute fracture. OTHER FINDINGS: None. IMPRESSION: No obstructive uropathy or evidence of recently passed genitourinary calculus. Nonspecific left perinephric stranding for which pyelonephritis cannot be excluded on this unenhanced CT.
[2018-02-07] MEDS ORDERED: Cefepime IV 1 gm in Dextrose 1 GM/50 ML BAG IVPB SCH (13:00)
--- NOTE | 2018-02-07 13:52 | CP.PCM.PN ---
<Oskar Sinclair - Last Filed: 02/07/18 13:49> Subjective - Date & Time of Evaluation Date of Evaluation: 02/07/18 Time of Evaluation: 13:49 - Subjective Subjective: Patient seen and examined at bedside. Complaining of severe suprapubic pain and episode of hematuria. No chest pain or SOB. No fevers or chills. Objective - Vital Signs/Intake and Output Vital Signs (last 24 hours): Temp Pulse Resp BP Pulse Ox 98.3 F 64 20 95/59 L 100 02/07/18 07:10 02/07/18 07:10 02/07/18 07:10 02/07/18 07:10 02/07/18 07:10 Intake and Output: 02/07/18 02/07/18 06:59 18:59 Intake Total 800 Balance 800 - Medications Medications: Current Medications Fluoxetine HCl (Prozac) 10 mg PO DAILY AMILCAR Hydromorphone HCl (Dilaudid) 1 mg IVP Q4H PRN PRN Reason: Pain, severe (8-10) Lactated Ringer's (Lactated Ringer's) 1,000 mls @ 150 mls/hr IV .Q6H40M AMILCAR Last Admin: 02/07/18 09:46 Dose: 150 mls/hr Cefepime HCl (Maxipime Iv 1 Gm Premix) 1 gm in 50 mls @ 100 mls/hr IVPB Q12H AMILCAR PRN Reason: Protocol Morphine Sulfate (Morphine) 2 mg IV Q4H AMILCAR Ondansetron HCl (Zofran Inj) 4 mg IVP Q6H PRN PRN Reason: Nausea/Vomiting Pneumococcal Polyvalent Vaccine (Pneumovax 23 Vaccine) 0.5 ml IM .ONCE ONE Stop: 02/09/18 10:01 Saccharomyces Boulardii (Florastor) 250 mg PO BID AMILCAR Trazodone HCl (Desyrel) 25 mg PO HS AMILCAR - Labs Labs: 02/06/18 20:26 02/06/18 20:26 PT 11.9 SECONDS (9.7-12.2) 02/07/18 00:55 INR 1.1 02/07/18 00:55 APTT 28 SECONDS (21-34) 02/07/18 00:55 - Constitutional Appears: In Acute Distress (looks very uncomfortable. Sitting upright. unable to relax. ) - Head Exam Head Exam: ATRAUMATIC, NORMAL INSPECTION, NORMOCEPHALIC - Eye Exam Eye Exam: EOMI - ENT Exam ENT Exam: Mucous Membranes Moist - Neck Exam Neck Exam: Full ROM - Respiratory Exam Respiratory Exam: Clear to Ausculation Bilateral, NORMAL BREATHING PATTERN. absent: Wheezes - Cardiovascular Exam Cardiovascular Exam: REGULAR RHYTHM - GI/Abdominal Exam GI & Abdominal Exam: Soft, Tenderness (suprabic tenderness), Normal Bowel Sounds. absent: Distended - Extremities Exam Extremities Exam: absent: Joint Swelling, Tenderness - Back Exam Back Exam: CVA tenderness (L). absent: CVA tenderness (R) - Neurological Exam Neurological Exam: Alert, Awake, Oriented x3 - Psychiatric Exam Psychiatric exam: Normal Affect, Normal Mood - Skin Skin Exam: Dry, Intact, Normal Color, Warm Assessment and Plan (1) Pyelonephritis due to Escherichia coli Assessment & Plan: Patient has severe pain and is unable to relax despite 4mg of morphine. Also complaining of gross hematuria. CT was done and shows nonspecific stranding of left kidney. No stones identified. Patient was previously on cipro but was not improving so changed to maxipime. Uro consult. Will get renal and bladder US. Pain control with morphine. Urine culture gram negative conchita most likely E. coli. Will follow up sensitivities. Aggressive fluid management. Zofran PRN for nausea. VTE ppx clearly contraindicated as patient is having gross hematuria. No GI ppx is indicated at this time. Status: Acute <Loyda Martinez V - Last Filed: 02/07/18 16:05> Objective - Vital Signs/Intake and Output Vital Signs (last 24 hours): Temp Pulse Resp BP Pulse Ox 98.3 F 64 20 94/53 L 100 02/07/18 07:10 02/07/18 07:10 02/07/18 07:10 02/07/18 14:18 02/07/18 07:10 Intake and Output: 02/07/18 02/07/18 06:59 18:59 Intake Total 800 Balance 800 - Medications Medications: Current Medications Fluoxetine HCl (Prozac) 10 mg PO DAILY AMILCAR Hydromorphone HCl (Dilaudid) 1 mg IVP Q4H PRN PRN Reason: Pain, severe (8-10) Lactated Ringer's (Lactated Ringer's) 1,000 mls @ 150 mls/hr IV .Q6H40M [facility] Last Admin: 02/07/18 15:39 Dose: Not Given Cefepime HCl (Maxipime Iv 1 Gm Premix) 1 gm in 50 mls @ 100 mls/hr IVPB Q12H AMILCAR PRN Reason: Protocol Last Admin: 02/07/18 14:00 Dose: 100 mls/hr Sodium Chloride (Sodium Chloride 0.9%) 1,000 mls @ 1,000 mls/hr IV .Q1H ONE Stop: 02/07/18 15:53 Last Admin: 02/07/18 15:06 Dose: 1,000 mls/hr Morphine Sulfate (Morphine) 2 mg IV Q4H [facility] Last Admin: 02/07/18 14:28 Dose: 2 mg Ondansetron HCl (Zofran Inj) 4 mg IVP Q6H PRN PRN Reason: Nausea/Vomiting Pneumococcal Polyvalent Vaccine (Pneumovax 23 Vaccine) 0.5 ml IM .ONCE ONE Stop: 02/09/18 10:01 Saccharomyces Boulardii (Florastor) 250 mg PO BID AMILCAR Trazodone HCl (Desyrel) 25 mg PO HS AMILCAR - Labs Labs: 02/07/18 14:57 02/07/18 14:57 PT 11.9 SECONDS (9.7-12.2) 02/07/18 00:55 INR 1.1 02/07/18 00:55 APTT 28 SECONDS (21-34) 02/07/18 00:55 Attending/Attestation - Attestation I have personally seen and examined this patient.: Yes I have fully participated in the care of the patient.: Yes I have reviewed all pertinent clinical information, including history, physical exam and plan: Yes Notes (Text): Patient seen, examined and case discussed with day-time resident. Patient reports bilateral flank pain, lower right and left quadrant pains. Patient has received Morphine 4mg IV X1 at bedside but is in quite bit of pain. We have ordered for CT abdomen/pelvis w/o po and iv contrast and renal US; given patient has history of kidney stones. Case discussed with urology and infectious disease who will come to evaluate the patient. (1) Pyelonephritis due to Escherichia coli History of Neprolithaisis Hematuria Assessment & Plan: * Urology (Dr. Yudy Umanzor) on consult-->help appreciated * Infectious Disease (Dr. Salomon) on consult-->help appreciated * ABx switched to Meropenem 1mgram IV Q 8H * Patient has severe pain and is unable to relax despite 4mg of morphine. * CT abdomen/pelvis w/o PO and IV contrast (02/07/18): no obstructive uropathy or evidence of recently passed calculus. Nonspecific left perinephric stranding for which pyelonephritis cannot be excluded on this enhanced on CT * Renal US (02/07/18): mild thickening versus underdistention of the urinary bladder. 1 cm of left renal cyst. If hematuria persists, consider correlation w hematuria protocol CT scan * Urine culture (02/06/18): gram negative conchita * Note: patient received dose of Pyridum last night from ER; though she has history of anemia; will continue to monitor urine output for hematuria * Pain PRN * Dilaudid 1mg IV Q4H PRN severe pain * Morphine 2mg IV Q4H moderate pain * IV fluids: NS 150/cchr * Florastor 250mg PO BID * Blood culture (02/06/18): pending Status: Acute (2) History of Anemia Assessment & Plan: * Patient has history of menorrhagia, awaiting outpatient evaluation by [facility] * Will order for ferritin, iron studies, b12, folate, reticulocyte count * Type and screen ordered * Hgb drop from 10.6 to 9.2 unclear if dilutional vs hematuria since patient has receive fluid bolus and on maintenance IV fluids (3) History of Depression Assessment & Plan: * Patient takes Fluoxetine and Trazodone as outpatient * Will hold Fluoxetine in light of liver function tests (4) Transaminitis Assessment & Plan: * continue to monitor LFTS * will hold tylenol/SSRI/zofran given LFTS (5) Prophylactic care Assessment & Plan: * No chemical indication secondary to hematuria, anemia, hx of menorrhagia * SCDS b/l Patient changed to inpatient give hematuria, intractable back pain under the setting of pyelonephritis; will need urology and infectious disease for further recommendations
--- NOTE | 2018-02-07 14:40 | US ---
Renal and urinary bladder ultrasound History: Urinary tract infection. Hematuria. Comparison: None available. Technique: Real-time sonography was performed through the kidneys and urinary bladder. Findings: Right kidney: 11.4 x 4.3 x 5.3 centimeters. No calculi or hydronephrosis. Left Kidney: 11.2 x 5.8 x 5.5 centimeters. No calculi or hydronephrosis. Midpole hypoechoic cyst measuring 1.0 x 0.5 x 0.6 centimeters. Visualized aorta is grossly preserved. Visualized urinary bladder is grossly preserved. Prevoid bladder volume of 255 cc. No significant postvoid residual in urinary bladder. Bilateral ureteral jets were visualized. Mild thickening versus underdistention of the urinary bladder. Clinical correlation. No gross bladder calculus identified. Impression: Mild thickening versus underdistention of the urinary bladder. Clinical correlation. 1 centimeter left renal cyst. If hematuria persists, consider correlation with a hematuria protocol CT scan.
[2018-02-07 15:08] LABS: BASO % 0.4 % (0.0-2.0); EOS % 0.2 % (0.0-4.0); HEMOGLOBIN 9.2 g/dL (11.0-16.0); LYMPH # 1.1 K/uL (1.0-4.3); LYMPH % 12.4 % (20.0-40.0); MEAN CELL VOLUME 79.9 fL (81.0-99.0); MEAN CORPUSCULAR HEMOGLOBIN 26.4 pg (27.0-31.0); MEAN PLATELET VOLUME 8.6 fL (7.2-11.7); MONO # 0.7 K/uL (0.0-0.8); MONO % 8.3 % (0.0-10.0); NEUT # 6.8 K/uL (1.8-7.0); NEUT % 78.7 % (50.0-75.0); NRBC % 0.1 % (0.0-2.0); RBC 3.48 Mil/uL (3.80-5.20); RED CELL DISTRIBUTION WIDTH 21.7 % (11.5-14.5); WHITE BLOOD COUNT 8.6 K/uL (4.8-10.8)
[2018-02-07 15:27] LABS: ALB/GLOB RATIO 1.1 (1.0-2.1); ALBUMIN 3.4 g/dL (3.5-5.0); BLOOD UREA NITROGEN 9 mg/dL (7-17); CALCIUM 8.4 mg/dl (8.6-10.4); GFR AFRICAN-AMERICAN > 60; GFR NON-AFRICAN AMERICAN > 60
[2018-02-07 15:40] LABS: ALT/SGPT 275 U/L (9-52); AST/SGOT 417 U/L (14-36)
--- NOTE | 2018-02-07 15:52 | CP.PCM.CON ---
Past Patient History - Infectious Disease Hx of Infectious Diseases: None - Past Social History Smoking Status: Never Smoked Chewing Tobacco Use: No Cigar Use: No Alcohol: None Domestic Violence: Negative - CARDIAC Hx Hypertension: No - PULMONARY Hx Tuberculosis: No - NEUROLOGICAL Hx Migraine: Yes Hx Seizures: No - HEENT Hx HEENT Problems: No - RENAL Hx Chronic Kidney Disease: No - ENDOCRINE/METABOLIC Other/Comment: "low blood sugar" - HEMATOLOGICAL/ONCOLOGICAL Hx Anemia: Yes Hx Human Immunodeficiency Virus (HIV): No - INTEGUMENTARY Hx Dermatological Problems: No - MUSCULOSKELETAL/RHEUMATOLOGICAL Hx Falls: No - GASTROINTESTINAL Hx Gastrointestinal Disorders: No - GENITOURINARY/GYNECOLOGICAL Hx Sexually Transmitted Disorders: No - PSYCHIATRIC Hx Depression: Yes Hx Substance Use: No - SURGICAL HISTORY Hx Appendectomy: Yes Hx Cholecystectomy: Yes - ANESTHESIA Hx Anesthesia: Yes Hx Anesthesia Reactions: No Meds Home Medications: Home Medication List Medication Instructions Recorded Confirmed Type Ciprofloxacin [Cipro] 500 mg PO BID #14 tab 02/06/18 Rx Ibuprofen [Motrin] 600 mg PO Q6 #25 tab 02/06/18 Rx Ondansetron ODT [Zofran ODT] 4 mg PO Q8 #12 odt 02/06/18 Rx Phenazopyridine [Pyridium] 1 tab PO Q8 #6 tab 02/06/18 Rx Allergies/Adverse Reactions: Allergies Allergy/AdvReac Type Severity Reaction Status Date / Time No Known Allergies Allergy Verified 02/06/18 19:52 - Medications Medications: Current Medications Fluoxetine HCl (Prozac) 10 mg PO DAILY [facility] Hydromorphone HCl (Dilaudid) 1 mg IVP Q4H PRN PRN Reason: Pain, severe (8-10) Lactated Ringer's (Lactated Ringer's) 1,000 mls @ 150 mls/hr IV .Q6H40M [facility] Last Admin: 02/07/18 15:39 Dose: Not Given Cefepime HCl (Maxipime Iv 1 Gm Premix) 1 gm in 50 mls @ 100 mls/hr IVPB Q12H [facility] PRN Reason: Protocol Last Admin: 02/07/18 14:00 Dose: 100 mls/hr Sodium Chloride (Sodium Chloride 0.9%) 1,000 mls @ 1,000 mls/hr IV .Q1H ONE Stop: 02/07/18 15:53 Last Admin: 02/07/18 15:06 Dose: 1,000 mls/hr Morphine Sulfate (Morphine) 2 mg IV Q4H [facility] Last Admin: 02/07/18 14:28 Dose: 2 mg Ondansetron HCl (Zofran Inj) 4 mg IVP Q6H PRN PRN Reason: Nausea/Vomiting Pneumococcal Polyvalent Vaccine (Pneumovax 23 Vaccine) 0.5 ml IM .ONCE ONE Stop: 02/09/18 10:01 Saccharomyces Boulardii (Florastor) 250 mg PO BID [facility] Trazodone HCl (Desyrel) 25 mg PO HS [facility] Results - Vital Signs Recent Vital Signs: Last Vital Signs Temp 98.3 F 02/07/18 07:10 Pulse 64 02/07/18 07:10 Resp 20 02/07/18 07:10 BP 94/53 L 02/07/18 14:18 Pulse Ox 100 02/07/18 07:10 - Labs Result Diagrams: 02/07/18 14:57 02/07/18 14:57 Labs: Laboratory Results - last 24 hr 02/06/18 02/06/18 02/06/18 20:20 20:26 20:26 WBC 9.0 D RBC 4.13 Hgb 10.9 L Hct 32.8 L MCV 79.4 L MCH 26.3 L MCHC 33.2 RDW 21.8 H Plt Count 257 MPV 8.4 Neut % (Auto) 86.2 H Lymph % (Auto) 9.0 L [place] % (Auto) 3.5 Eos % (Auto) 0.8 Baso % (Auto) 0.5 Neut # (Auto) 7.8 H Lymph # (Auto) 0.8 L [place] # (Auto) 0.3 Eos # (Auto) 0.1 Baso # (Auto) 0.0 Neutrophils % (Manual) 83 H Band Neutrophils % 1 Lymphocytes % (Manual) 11 L Monocytes % (Manual) 3 Eosinophils % (Manual) 2 Platelet Estimate Normal Microcytosis (manual) Slight PT INR APTT Puncture Site pCO2 pO2 HCO3 ABG pH ABG Total CO2 ABG O2 Saturation ABG Base Excess Ellis Test ABG Potassium A-a O2 Difference Respiratory Index Glucose Lactate Liter Flow FiO2 Sodium 137 Potassium 3.9 Chloride 100 Carbon Dioxide 25 Anion Gap 16 BUN 13 Creatinine 0.6 L Est GFR ( Amer) > 60 Est GFR (Non-Af Amer) > 60 Random Glucose 91 Calcium 9.1 Total Bilirubin 0.7 AST 23 ALT 24 Alkaline Phosphatase 107 Total Protein 7.8 Albumin 4.1 Globulin 3.7 Albumin/Globulin Ratio 1.1 Lipase 142 Arterial Blood Potassium Urine Color Urine Clarity Urine pH Ur Specific [place] Urine Protein Urine Glucose (UA) Urine Ketones Urine Blood Urine Nitrate Urine Bilirubin Urine Urobilinogen Ur Leukocyte Esterase Urine WBC (Auto) Urine RBC (Auto) Ur Squamous Epith Cells Urine Bacteria Urine HCG, Qual Negative 02/06/18 02/06/18 02/07/18 20:43 21:57 00:55 WBC RBC Hgb Hct MCV MCH MCHC RDW Plt Count MPV Neut % (Auto) Lymph % (Auto) [place] % (Auto) Eos % (Auto) Baso % (Auto) Neut # (Auto) Lymph # (Auto) [place] # (Auto) Eos # (Auto) Baso # (Auto) Neutrophils % (Manual) Band Neutrophils % Lymphocytes % (Manual) Monocytes % (Manual) Eosinophils % (Manual) Platelet Estimate Microcytosis (manual) PT 11.9 INR 1.1 APTT 28 Puncture Site Rba pCO2 31 L pO2 106 H HCO3 23.3 ABG pH 7.44 ABG Total CO2 22.1 ABG O2 Saturation 99.3 H ABG Base Excess -2.1 L Ellis Test Pos ABG Potassium 3.2 L A-a O2 Difference 5.0 Respiratory Index 0 Glucose 91 Lactate 0.6 L Liter Flow 0 FiO2 21.0 Sodium 135.0 Potassium Chloride 107.0 Carbon Dioxide Anion Gap BUN Creatinine Est GFR ( Amer) Est GFR (Non-Af Amer) Random Glucose Calcium Total Bilirubin AST ALT Alkaline Phosphatase Total Protein Albumin Globulin Albumin/Globulin Ratio Lipase Arterial Blood Potassium 3.2 L Urine Color Yellow Urine Clarity Hazy Urine pH 7.0 Ur Specific [place] 1.012 Urine Protein Negative Urine Glucose (UA) Normal Urine Ketones Negative Urine Blood 2+ H Urine Nitrate Positive H Urine Bilirubin Negative Urine Urobilinogen Normal Ur Leukocyte Esterase 2+ H Urine WBC (Auto) 114 H Urine RBC (Auto) 4 H Ur Squamous Epith Cells 2 Urine Bacteria Mod H Urine HCG, Qual 02/07/18 02/07/18 14:57 14:57 WBC 8.6 RBC 3.48 L Hgb 9.2 L Hct 27.8 L MCV 79.9 L MCH 26.4 L MCHC 33.0 RDW 21.7 H Plt Count 210 MPV 8.6 Neut % (Auto) 78.7 H Lymph % (Auto) 12.4 L [place] % (Auto) 8.3 Eos % (Auto) 0.2 Baso % (Auto) 0.4 Neut # (Auto) 6.8 Lymph # (Auto) 1.1 [place] # (Auto) 0.7 Eos # (Auto) 0.0 Baso # (Auto) 0.0 Neutrophils % (Manual) Band Neutrophils % Lymphocytes % (Manual) Monocytes % (Manual) Eosinophils % (Manual) Platelet Estimate Microcytosis (manual) PT INR APTT Puncture Site pCO2 pO2 HCO3 ABG pH ABG Total CO2 ABG O2 Saturation ABG Base Excess Ellis Test ABG Potassium A-a O2 Difference Respiratory Index Glucose Lactate Liter Flow FiO2 Sodium 138 Potassium 4.0 Chloride 104 Carbon Dioxide 24 Anion Gap 13 BUN 9 Creatinine 0.6 L Est GFR ( Amer) > 60 Est GFR (Non-Af Amer) > 60 Random Glucose 98 Calcium 8.4 L Total Bilirubin 1.3 AST 417 H D ALT 275 H D Alkaline Phosphatase 92 Total Protein 6.6 Albumin 3.4 L Globulin 3.2 Albumin/Globulin Ratio 1.1 Lipase Arterial Blood Potassium Urine Color Urine Clarity Urine pH Ur Specific [place] Urine Protein Urine Glucose (UA) Urine Ketones Urine Blood Urine Nitrate Urine Bilirubin Urine Urobilinogen Ur Leukocyte Esterase Urine WBC (Auto) Urine RBC (Auto) Ur Squamous Epith Cells Urine Bacteria Urine HCG, Qual Assessment & Plan - Assessment and Plan (Free Text) Assessment: IMP: UTI L Pyelonephritis Hx of urolithiasis full note t/f YS - Date & Time Date: 02/07/18 Time: 15:51
--- NOTE | 2018-02-07 15:58 | CP.PCM.CON ---
History of Present Illness - History of Present Illness History of Present Illness: dictated Past Patient History - Infectious Disease Hx of Infectious Diseases: None - Past Social History Smoking Status: Never Smoked Chewing Tobacco Use: No Cigar Use: No Alcohol: None Domestic Violence: Negative - CARDIAC Hx Hypertension: No - PULMONARY Hx Tuberculosis: No - NEUROLOGICAL Hx Migraine: Yes Hx Seizures: No - HEENT Hx HEENT Problems: No - RENAL Hx Chronic Kidney Disease: No - ENDOCRINE/METABOLIC Other/Comment: "low blood sugar" - HEMATOLOGICAL/ONCOLOGICAL Hx Anemia: Yes Hx Human Immunodeficiency Virus (HIV): No - INTEGUMENTARY Hx Dermatological Problems: No - MUSCULOSKELETAL/RHEUMATOLOGICAL Hx Falls: No - GASTROINTESTINAL Hx Gastrointestinal Disorders: No - GENITOURINARY/GYNECOLOGICAL Hx Sexually Transmitted Disorders: No - PSYCHIATRIC Hx Depression: Yes Hx Substance Use: No - SURGICAL HISTORY Hx Appendectomy: Yes Hx Cholecystectomy: Yes - ANESTHESIA Hx Anesthesia: Yes Hx Anesthesia Reactions: No Meds Home Medications: Home Medication List Medication Instructions Recorded Confirmed Type Ciprofloxacin [Cipro] 500 mg PO BID #14 tab 02/06/18 Rx Ibuprofen [Motrin] 600 mg PO Q6 #25 tab 02/06/18 Rx Ondansetron ODT [Zofran ODT] 4 mg PO Q8 #12 odt 02/06/18 Rx Phenazopyridine [Pyridium] 1 tab PO Q8 #6 tab 02/06/18 Rx Allergies/Adverse Reactions: Allergies Allergy/AdvReac Type Severity Reaction Status Date / Time No Known Allergies Allergy Verified 02/06/18 19:52 - Medications Medications: Current Medications Hydromorphone HCl (Dilaudid) 1 mg IVP Q4H PRN PRN Reason: Pain, severe (8-10) Lactated Ringer's (Lactated Ringer's) 1,000 mls @ 150 mls/hr IV .Q6H40M [facility] Last Admin: 02/07/18 15:39 Dose: Not Given Cefepime HCl (Maxipime Iv 1 Gm Premix) 1 gm in 50 mls @ 100 mls/hr IVPB Q12H [facility] PRN Reason: Protocol Last Admin: 02/07/18 14:00 Dose: 100 mls/hr Morphine Sulfate (Morphine) 2 mg IV Q4H [facility] Last Admin: 02/07/18 14:28 Dose: 2 mg Ondansetron HCl (Zofran Inj) 4 mg IVP Q6H PRN PRN Reason: Nausea/Vomiting Pneumococcal Polyvalent Vaccine (Pneumovax 23 Vaccine) 0.5 ml IM .ONCE ONE Stop: 02/09/18 10:01 Saccharomyces Boulardii (Florastor) 250 mg PO BID [facility] Trazodone HCl (Desyrel) 25 mg PO HS [facility] Results - Vital Signs Recent Vital Signs: Last Vital Signs Temp 98.1 F 02/07/18 15:30 Pulse 64 02/07/18 15:30 Resp 20 02/07/18 15:30 BP 90/50 L 02/07/18 15:30 Pulse Ox 98 02/07/18 15:30 - Labs Result Diagrams: 02/07/18 14:57 02/07/18 14:57 Labs: Laboratory Results - last 24 hr 02/06/18 02/06/18 02/06/18 20:20 20:26 20:26 WBC 9.0 D RBC 4.13 Hgb 10.9 L Hct 32.8 L MCV 79.4 L MCH 26.3 L MCHC 33.2 RDW 21.8 H Plt Count 257 MPV 8.4 Neut % (Auto) 86.2 H Lymph % (Auto) 9.0 L [place] % (Auto) 3.5 Eos % (Auto) 0.8 Baso % (Auto) 0.5 Neut # (Auto) 7.8 H Lymph # (Auto) 0.8 L [place] # (Auto) 0.3 Eos # (Auto) 0.1 Baso # (Auto) 0.0 Neutrophils % (Manual) 83 H Band Neutrophils % 1 Lymphocytes % (Manual) 11 L Monocytes % (Manual) 3 Eosinophils % (Manual) 2 Platelet Estimate Normal Microcytosis (manual) Slight PT INR APTT Puncture Site pCO2 pO2 HCO3 ABG pH ABG Total CO2 ABG O2 Saturation ABG Base Excess Ellis Test ABG Potassium A-a O2 Difference Respiratory Index Glucose Lactate Liter Flow FiO2 Sodium 137 Potassium 3.9 Chloride 100 Carbon Dioxide 25 Anion Gap 16 BUN 13 Creatinine 0.6 L Est GFR ( Amer) > 60 Est GFR (Non-Af Amer) > 60 Random Glucose 91 Calcium 9.1 Total Bilirubin 0.7 AST 23 ALT 24 Alkaline Phosphatase 107 Total Protein 7.8 Albumin 4.1 Globulin 3.7 Albumin/Globulin Ratio 1.1 Lipase 142 Arterial Blood Potassium Urine Color Urine Clarity Urine pH Ur Specific [place] Urine Protein Urine Glucose (UA) Urine Ketones Urine Blood Urine Nitrate Urine Bilirubin Urine Urobilinogen Ur Leukocyte Esterase Urine WBC (Auto) Urine RBC (Auto) Ur Squamous Epith Cells Urine Bacteria Urine HCG, Qual Negative 02/06/18 02/06/18 02/07/18 20:43 21:57 00:55 WBC RBC Hgb Hct MCV MCH MCHC RDW Plt Count MPV Neut % (Auto) Lymph % (Auto) [place] % (Auto) Eos % (Auto) Baso % (Auto) Neut # (Auto) Lymph # (Auto) [place] # (Auto) Eos # (Auto) Baso # (Auto) Neutrophils % (Manual) Band Neutrophils % Lymphocytes % (Manual) Monocytes % (Manual) Eosinophils % (Manual) Platelet Estimate Microcytosis (manual) PT 11.9 INR 1.1 APTT 28 Puncture Site Rba pCO2 31 L pO2 106 H HCO3 23.3 ABG pH 7.44 ABG Total CO2 22.1 ABG O2 Saturation 99.3 H ABG Base Excess -2.1 L Ellis Test Pos ABG Potassium 3.2 L A-a O2 Difference 5.0 Respiratory Index 0 Glucose 91 Lactate 0.6 L Liter Flow 0 FiO2 21.0 Sodium 135.0 Potassium Chloride 107.0 Carbon Dioxide Anion Gap BUN Creatinine Est GFR ( Amer) Est GFR (Non-Af Amer) Random Glucose Calcium Total Bilirubin AST ALT Alkaline Phosphatase Total Protein Albumin Globulin Albumin/Globulin Ratio Lipase Arterial Blood Potassium 3.2 L Urine Color Yellow Urine Clarity Hazy Urine pH 7.0 Ur Specific [place] 1.012 Urine Protein Negative Urine Glucose (UA) Normal Urine Ketones Negative Urine Blood 2+ H Urine Nitrate Positive H Urine Bilirubin Negative Urine Urobilinogen Normal Ur Leukocyte Esterase 2+ H Urine WBC (Auto) 114 H Urine RBC (Auto) 4 H Ur Squamous Epith Cells 2 Urine Bacteria Mod H Urine HCG, Qual 02/07/18 02/07/18 14:57 14:57 WBC 8.6 RBC 3.48 L Hgb 9.2 L Hct 27.8 L MCV 79.9 L MCH 26.4 L MCHC 33.0 RDW 21.7 H Plt Count 210 MPV 8.6 Neut % (Auto) 78.7 H Lymph % (Auto) 12.4 L [place] % (Auto) 8.3 Eos % (Auto) 0.2 Baso % (Auto) 0.4 Neut # (Auto) 6.8 Lymph # (Auto) 1.1 White # (Auto) 0.7 Eos # (Auto) 0.0 Baso # (Auto) 0.0 Neutrophils % (Manual) Band Neutrophils % Lymphocytes % (Manual) Monocytes % (Manual) Eosinophils % (Manual) Platelet Estimate Microcytosis (manual) PT INR APTT Puncture Site pCO2 pO2 HCO3 ABG pH ABG Total CO2 ABG O2 Saturation ABG Base Excess Ellis Test ABG Potassium A-a O2 Difference Respiratory Index Glucose Lactate Liter Flow FiO2 Sodium 138 Potassium 4.0 Chloride 104 Carbon Dioxide 24 Anion Gap 13 BUN 9 Creatinine 0.6 L Est GFR ( Amer) > 60 Est GFR (Non-Af Amer) > 60 Random Glucose 98 Calcium 8.4 L Total Bilirubin 1.3 AST 417 H D ALT 275 H D Alkaline Phosphatase 92 Total Protein 6.6 Albumin 3.4 L Globulin 3.2 Albumin/Globulin Ratio 1.1 Lipase Arterial Blood Potassium Urine Color Urine Clarity Urine pH Ur Specific [place] Urine Protein Urine Glucose (UA) Urine Ketones Urine Blood Urine Nitrate Urine Bilirubin Urine Urobilinogen Ur Leukocyte Esterase Urine WBC (Auto) Urine RBC (Auto) Ur Squamous Epith Cells Urine Bacteria Urine HCG, Qual Assessment & Plan (1) Pyelonephritis due to Escherichia coli Status: Acute (2) Sepsis Status: Acute (3) UTI (urinary tract infection) Status: Acute (4) Chest wall pain Status: Acute
[2018-02-07] MEDS: Meropenem 1 GM in Sodium Chloride 0.9% 100 ML IVPB SCH (16:54)
[2018-02-07 17:03] LABS: IRON 24 ug/dL (37-170)
[2018-02-07 17:13] LABS: % IRON SATURATION 6 (20-55); TOTAL IRON BINDING CAPACITY 412 ug/dL (250-450)
[2018-02-07] MEDS: Saccharomyces Boulardi 250 mg Cap PO SCH (17:24)
[2018-02-07 17:37] LABS: FERRITIN 33.4 ng/mL
[2018-02-07 18:07] LABS: FOLATE 12.6 ng/mL
[2018-02-07] MEDS: traZODone 25 mg Tab PO SCH (22:40)
[2018-02-08] MEDS: Meropenem 1 GM in Sodium Chloride 0.9% 100 ML IVPB SCH ×3 (00:31→17:00)
--- NOTE | 2018-02-08 01:00 | CON ---
DATE: 02/07/2018 INFECTIOUS DISEASE CONSULT REQUESTED BY: Dr. Willoughby and Dr. Martinez. HISTORY OF PRESENT ILLNESS: This patient is 38-year-old female. She was complaining of severe CVA pain and she was also having dysuria and I see she has pyuria and I was asked to see her, as she came in with abdominal pain. She was sick looking with lot of pain and she says she has been having this for 7 days and got worse in last 2 days. She says she has had 2 times infections before. She denies any diabetes, denies any hypertension. She was started on Cipro, Motrin, Zofran and Pyridium in the ER, but she remains with pain and I am asked to evaluate for IV antibiotics at this time. PAST MEDICAL HISTORY: Anemia, cholecystectomy, appendicectomy, , and she was complaining of suprapubic pain and flank pains in the left side. She says she has had kidney stones in the past and is not allergic to any medicines and has past medical history of depression and migraine. She has no diabetes. No history of HIV. Denies any kidney problem. She does complain her legs are swollen. She denies any other illnesses at this time. FAMILY HISTORY: Noncontributory. SOCIAL HISTORY: Negative for smoking or drinking. REVIEW OF SYSTEMS: She complained of body aches and said was having high fever. She also had vomiting and had suprapubic pain when she came in. Denied any diarrhea or constipation. She now complains of pressure on the chest and back pain and is sick looking. MEDICATIONS: Her medications, which I just changed to, she is on pain medications, Lactated Ringers', meropenem, morphine and IV fluids. She is also on lactobacillus and she is on trazodone for her sleep. PHYSICAL EXAMINATION: VITAL SIGNS: I find temperature is 98.1, pulse 64, blood pressure is 90/50 and respirations are 20. GENERAL: She appears pale and sick looking. HEENT: Head is atraumatic. Pupils are reacting to light. NECK: Supple. JVP is flat. CHEST: Wall is symmetrical. LUNGS: Clear. HEART: S1 and S2 are regular. ABDOMEN: Soft. There is CVA tenderness present and suprapubic tenderness present. EXTREMITIES: Has may be trace edema on lower extremities. LABORATORY DATA: White count is 8.6, hemoglobin 9.2, hematocrit 27.8, platelet count is 210. Her urine showed leucocyte and 114 wbc's, rbc is 4. Sodium is 138, potassium 4, chloride is 104, CO2 is 24, BUN is 9, creatinine 0.6. Urine culture has gram negative rods. She also had CT abdomen and they also did a bladder ultrasound at this time and the bladder ultrasound shows mild thickening versus under distention of urinary bladder 1 cm, left renal cyst. If hematuria persist consider correlation with a hematuria protocol. Actually, she did have some hematuria, but she was on Pyridium also started in the ER. The left kidney shows no calculi or hydronephrosis mid pole cyst measuring 1 x 0.5 x 0.6 cm and right kidney has no calculi or hydronephrosis, that was from the bladder ultrasound and then we did abdominal CAT scan and pelvic CT, which showed no obstructive uropathy or evidence of recently passed calculus, nonspecific left perinephric stranding for which pyelonephritis cannot be excluded on this unenhanced CT. So she clinically does look sick looking and may have pyelonephritis, even though they did not show stone and she is in lot of pain when we saw. Her labs, AST is 417, ALT is 275 which shows that she is in sepsis syndrome with multiorgan involvement and procalcitonin was only 0.21, I am surprised with that, so will leave her on the Merrem at this time and I want to make sure blood cultures were done or not done, has been collected. We will follow. IMPRESSION AND PLAN: This patient has hydronephrosis, has history of kidney stones in the past, and has had urinary tract infection in the past, will cover with Merrem at this time. She remains hypotensive, blood pressure is low and needs IV fluids at this time and pain medications and will follow. Jose D Salomon MD
[2018-02-08] MEDS: Lactated Ringer's 1,000 ML IV SCH ×3 (05:46→18:45)
[2018-02-08 06:27] LABS: BASO % 0.6 % (0.0-2.0); EOS # 0.2 K/uL (0.0-0.7); EOS % 2.6 % (0.0-4.0); HEMOGLOBIN 8.9 g/dL (11.0-16.0); LYMPH # 2.2 K/uL (1.0-4.3); MEAN CORPUSCULAR HEMOGLOBIN 26.7 pg (27.0-31.0); MEAN CORPUSCULAR HGB CONC 33.3 g/dL (33.0-37.0); MEAN PLATELET VOLUME 8.8 fL (7.2-11.7); MONO # 0.6 K/uL (0.0-0.8); MONO % 9.2 % (0.0-10.0); NEUT # 3.8 K/uL (1.8-7.0); NEUT % 55.6 % (50.0-75.0); RBC 3.36 Mil/uL (3.80-5.20); RED CELL DISTRIBUTION WIDTH 21.9 % (11.5-14.5); WHITE BLOOD COUNT 6.9 K/uL (4.8-10.8)
[2018-02-08 07:06] LABS: ALBUMIN 2.9 g/dL (3.5-5.0); ALT/SGPT 218 U/L (9-52); AST/SGOT 159 U/L (14-36); BLOOD UREA NITROGEN 5 mg/dL (7-17); CALCIUM 8.5 mg/dl (8.6-10.4); GFR AFRICAN-AMERICAN > 60; GFR NON-AFRICAN AMERICAN > 60
[2018-02-08] MEDS: Saccharomyces Boulardi 250 mg Cap PO SCH ×2 (09:21→18:07)
--- NOTE | 2018-02-08 11:49 | CP.PCM.PN ---
<Danni Phipps DO - Last Filed: 02/08/18 12:05> Subjective - Date & Time of Evaluation Date of Evaluation: 02/08/18 Time of Evaluation: 10:00 - Subjective Subjective: Medicine progress note for Dr. Martinez's service Patient seen and examined. Patient complains of back pain as well as suprapubic pain. Patient complains of feeling swollen in her whole body. She states urine was less red today as compared to yesterday. She also complains of pain with deep inspiration. She states she has not had a bowel movement in two days. Objective - Vital Signs/Intake and Output Vital Signs (last 24 hours): Temp Pulse Resp BP Pulse Ox 97.9 F 75 20 92/59 L 98 02/08/18 07:00 02/08/18 07:00 02/08/18 07:00 02/08/18 07:00 02/08/18 07:00 Intake and Output: 02/08/18 02/08/18 06:59 18:59 Intake Total 3190 Balance 3190 - Medications Medications: Current Medications Hydromorphone HCl (Dilaudid) 1 mg IVP Q4H PRN PRN Reason: Pain, severe (8-10) Lactated Ringer's (Lactated Ringer's) 1,000 mls @ 150 mls/hr IV .Q6H40M [facility] Last Admin: 02/08/18 05:46 Dose: Not Given Meropenem 1 gm/ Sodium (Chloride) 100 mls @ 100 mls/hr IVPB Q8H [facility] PRN Reason: Protocol Last Admin: 02/08/18 09:21 Dose: 100 mls/hr Morphine Sulfate (Morphine) 2 mg IV Q4H [facility] Last Admin: 02/08/18 10:24 Dose: Not Given Pneumococcal Polyvalent Vaccine (Pneumovax 23 Vaccine) 0.5 ml IM .ONCE ONE Stop: 02/09/18 10:01 Saccharomyces Boulardii (Florastor) 250 mg PO BID [facility] Last Admin: 02/08/18 09:21 Dose: 250 mg Trazodone HCl (Desyrel) 25 mg PO HS [facility] Last Admin: 02/07/18 22:40 Dose: 25 mg - Labs Labs: 02/08/18 06:18 02/08/18 06:18 PT 11.9 SECONDS (9.7-12.2) 02/07/18 00:55 INR 1.1 02/07/18 00:55 APTT 28 SECONDS (21-34) 02/07/18 00:55 - Constitutional Appears: No Acute Distress - Head Exam Head Exam: ATRAUMATIC, NORMOCEPHALIC - Eye Exam Eye Exam: EOMI - ENT Exam ENT Exam: Mucous Membranes Moist - Respiratory Exam Respiratory Exam: Clear to Ausculation Bilateral, NORMAL BREATHING PATTERN. absent: Rales, Rhonchi, Wheezes - Cardiovascular Exam Cardiovascular Exam: +S1, +S2 - GI/Abdominal Exam GI & Abdominal Exam: Soft, Normal Bowel Sounds - Exam Additional comments: suprapubic tenderness - Extremities Exam Additional comments: diffuse non-pitting edema of the upper and lower extremities - Back Exam Back Exam: CVA tenderness (L), CVA tenderness (R) - Neurological Exam Neurological Exam: Alert, Awake - Psychiatric Exam Psychiatric exam: Normal Affect - Skin Skin Exam: Warm Assessment and Plan - Assessment and Plan (Free Text) Assessment: (1) Pyelonephritis due to Escherichia coli History of Neprolithaisis Hematuria Assessment & Plan: * Urology (Dr. Yudy Umanzor) on consult-->help appreciated * Infectious Disease (Dr. Salomon) on consult-->help appreciated * ABx switched to Meropenem 1 gram IV Q 8H 02/07/18 * Patient has severe pain and is unable to relax despite 4mg of morphine. * CT abdomen/pelvis w/o PO and IV contrast (02/07/18): no obstructive uropathy or evidence of recently passed calculus. Nonspecific left perinephric stranding for which pyelonephritis cannot be excluded on this enhanced on CT * Renal US (02/07/18): mild thickening versus underdistention of the urinary bladder. 1 cm of left renal cyst. If hematuria persists, consider correlation w hematuria protocol CT scan * Note: patient received dose of Pyridum in ER; though she has history of anemia ; will continue to monitor urine output for hematuria * Pain PRN * oxycodone 5mg q6 prn * toradol x 2 doses * morphine and dilaudid was not being given due to low blood pressure * IV fluids: LR 150/cchr * Florastor 250mg PO BID * Blood culture (02/06/18): no growth 24 h * urine culture (02/06/19): E. coli, sensitive to meropenem; will repeat tomorrow Status: Acute (2) History of Anemia Assessment & Plan: * Patient has history of menorrhagia, awaiting outpatient evaluation by [employer] * retic count 0.6, ferritin 33.4; will hold on starting iron in light of current infection * Type and screen ordered * Hgb drop from 10.6 to 9.2 to 8.9 unclear if dilutional vs hematuria since patient has receive fluid bolus and on maintenance IV fluids (3) History of Depression Assessment & Plan: * Patient takes Fluoxetine and Trazodone as outpatient * Will hold Fluoxetine in light of liver function tests (4) Transaminitis Assessment & Plan: * continue to monitor LFTS- down trending * will hold tylenol/SSRI/zofran given LFTS (5) Prophylactic care Assessment & Plan: * No chemical indication secondary to hematuria, anemia, hx of menorrhagia * SCDS b/l <Loyda Martinez V - Last Filed: 02/08/18 16:19> Objective - Vital Signs/Intake and Output Vital Signs (last 24 hours): Temp Pulse Resp BP Pulse Ox 97.9 F 75 20 92/59 L 98 02/08/18 07:00 02/08/18 07:00 02/08/18 07:00 02/08/18 07:00 02/08/18 07:00 Intake and Output: 02/08/18 02/08/18 06:59 18:59 Intake Total 3190 1400 Balance 3190 1400 - Medications Medications: Current Medications Docusate Sodium (Colace) 100 mg PO BID [facility] Last Admin: 02/08/18 13:32 Dose: 100 mg Lactated Ringer's (Lactated Ringer's) 1,000 mls @ 150 mls/hr IV .Q6H40M [facility] Last Admin: 02/08/18 12:51 Dose: Not Given Meropenem 1 gm/ Sodium (Chloride) 100 mls @ 100 mls/hr IVPB Q8H [facility] PRN Reason: Protocol Last Admin: 02/08/18 09:21 Dose: 100 mls/hr Ketorolac Tromethamine (Toradol) 30 mg IVP Q6 [facility] Stop: 02/08/18 18:01 Last Admin: 02/08/18 13:32 Dose: 30 mg Oxycodone HCl (Oxycodone Immediate Release Tab) 5 mg PO Q6 PRN PRN Reason: Pain, severe (8-10) Pneumococcal Polyvalent Vaccine (Pneumovax 23 Vaccine) 0.5 ml IM .ONCE ONE Stop: 02/09/18 10:01 Saccharomyces Boulardii (Florastor) 250 mg PO BID [facility] Last Admin: 02/08/18 09:21 Dose: 250 mg Trazodone HCl (Desyrel) 25 mg PO HS [facility] Last Admin: 02/07/18 22:40 Dose: 25 mg - Labs Labs: 02/08/18 06:18 02/08/18 06:18 PT 11.9 SECONDS (9.7-12.2) 02/07/18 00:55 INR 1.1 02/07/18 00:55 APTT 28 SECONDS (21-34) 02/07/18 00:55 Attending/Attestation - Attestation I have personally seen and examined this patient.: Yes I have fully participated in the care of the patient.: Yes I have reviewed all pertinent clinical information, including history, physical exam and plan: Yes Notes (Text): Patient seen, examined and case discussed with claim review medical director. Patient reports pain is about the same over the b/l flanks and suprapublic pain. Patient has not received pain PRN secondary to borderline low blood pressure. We have d/c patient's pain medications in favor of oxycodone PRN to see if this help. We will continue IV fluids. Patient is feeling swollen likely due to maintenace fluids. patient reports urine is pink. We have advised her to not flush so we can see if the urine is red with blood or if effect of pyridium. Patient's urine is sensitive to Cipro and Meropenem. We will collect urine culture repeat tomorrow. Blood cultures are negative. Agree with the assessment and plan as written by the resident above.
[2018-02-08] MEDS ORDERED: oxyCODONE 5 mg Immediate Release Tab PO PRN (11:50)
[2018-02-08] MEDS ORDERED: Albuterol-Ipratrop 3 mg / 0.5 (3 ml) UD INH ONE (12:00)
[2018-02-08] MEDS: traZODone 25 mg Tab PO SCH (22:15)
[2018-02-09] MEDS: Lactated Ringer's 1,000 ML IV SCH ×5 (01:15→21:31)
[2018-02-09 08:11] LABS: BASO % 0.8 % (0.0-2.0); EOS # 0.1 K/uL (0.0-0.7); EOS % 2.5 % (0.0-4.0); HEMOGLOBIN 9.1 g/dL (11.0-16.0); LYMPH # 1.9 K/uL (1.0-4.3); LYMPH % 33.4 % (20.0-40.0); MEAN CELL VOLUME 79.8 fL (81.0-99.0); MEAN CORPUSCULAR HEMOGLOBIN 26.9 pg (27.0-31.0); MEAN CORPUSCULAR HGB CONC 33.7 g/dL (33.0-37.0); MEAN PLATELET VOLUME 8.7 fL (7.2-11.7); MONO # 0.6 K/uL (0.0-0.8); MONO % 10.7 % (0.0-10.0); NEUT % 52.6 % (50.0-75.0); NRBC % 0.1 % (0.0-2.0); RBC 3.37 Mil/uL (3.80-5.20); RED CELL DISTRIBUTION WIDTH 21.6 % (11.5-14.5); WHITE BLOOD COUNT 5.8 K/uL (4.8-10.8)
[2018-02-09 08:19] LABS: ALB/GLOB RATIO 1.1 (1.0-2.1); ALBUMIN 3.2 g/dL (3.5-5.0); ALT/SGPT 159 U/L (9-52); AST/SGOT 78 U/L (14-36); BLOOD UREA NITROGEN 7 mg/dL (7-17); CALCIUM 8.5 mg/dl (8.6-10.4); GFR AFRICAN-AMERICAN > 60; GFR NON-AFRICAN AMERICAN > 60
[2018-02-09] MEDS: Meropenem 1 GM in Sodium Chloride 0.9% 100 ML IVPB SCH ×3 (09:41→17:35)
[2018-02-09] MEDS: Saccharomyces Boulardi 250 mg Cap PO SCH ×2 (09:41→17:35)
[2018-02-09] MEDS ORDERED: Pneumococcal 23-Valent Vaccine IM ONE (10:00)
[2018-02-09] MEDS ORDERED: Morphine 4 MG/ML VIAL IVP ONE (10:00)
[2018-02-09] MEDS: oxyCODONE 5 mg Immediate Release Tab PO SCH ×2 (13:21→21:34)
--- NOTE | 2018-02-09 15:49 | CARD ---
APPROVED REPORT EKG Measurement Heart [id number] <Conclusion> Normal sinus rhythm Normal ECG
[2018-02-09 17:43] LABS: SQUAMOUS EPITHIAL 1 /hpf (0-5); URINE BILIRUBIN NEGATIVE (NEGATIVE); URINE BLOOD NEGATIVE (NEGATIVE); URINE CLARITY Clear (Clear); URINE COLOR Straw (YELLOW); URINE GLUCOSE (UA) NORMAL (Normal); URINE LEUKOCYTE ESTERASE NEG Leu/uL (Negative); URINE PROTEIN NEGATIVE (NEGATIVE); URINE UROBILINOGEN NORMAL mg/dL (0.2-1.0)
--- NOTE | 2018-02-09 17:46 | CP.PCM.PN ---
<Danni Phipps DO - Last Filed: 02/09/18 19:56> Subjective - Subjective Subjective: Medicine progress note for Dr. Martinez's service Patient seen and examined. Patient states urine is normal colored today, not pink/ red-tinged. Patient reports she still has back pain, left greater than right. She complains of generalized swelling and little appetite. Objective - Vital Signs/Intake and Output Vital Signs (last 24 hours): Temp Pulse Resp BP Pulse Ox 98.1 F 67 20 99/67 L 97 02/09/18 17:07 02/09/18 17:07 02/09/18 17:07 02/09/18 17:07 02/09/18 17:07 Intake and Output: 02/09/18 02/10/18 18:59 06:59 Intake Total 2800 Balance 2800 - Medications Medications: Current Medications Docusate Sodium (Colace) 100 mg PO BID [facility] Last Admin: 02/09/18 17:34 Dose: 100 mg Lactated Ringer's (Lactated Ringer's) 1,000 mls @ 150 mls/hr IV .Q6H40M [facility] Last Admin: 02/09/18 14:30 Dose: Not Given Meropenem 1 gm/ Sodium (Chloride) 100 mls @ 100 mls/hr IVPB Q8H [facility] PRN Reason: Protocol Last Admin: 02/09/18 17:35 Dose: 100 mls/hr Ketorolac Tromethamine (Toradol) 30 mg IVP Q6 PRN PRN Reason: Pain, severe (8-10) Last Admin: 02/09/18 17:49 Dose: 30 mg Oxycodone HCl (Oxycodone Immediate Release Tab) 5 mg PO Q8 [facility] Last Admin: 02/09/18 13:21 Dose: 5 mg Saccharomyces Boulardii (Florastor) 250 mg PO BID [facility] Last Admin: 02/09/18 17:35 Dose: 250 mg Trazodone HCl (Desyrel) 25 mg PO HS [facility] Last Admin: 02/08/18 22:15 Dose: 25 mg - Labs Labs: 02/09/18 07:46 02/09/18 07:46 PT 11.9 SECONDS (9.7-12.2) 02/07/18 00:55 INR 1.1 02/07/18 00:55 APTT 28 SECONDS (21-34) 02/07/18 00:55 - Constitutional Appears: No Acute Distress - Eye Exam Eye Exam: EOMI - ENT Exam ENT Exam: Mucous Membranes Moist - Respiratory Exam Respiratory Exam: Clear to Ausculation Bilateral, NORMAL BREATHING PATTERN - Cardiovascular Exam Cardiovascular Exam: +S1, +S2 - GI/Abdominal Exam GI & Abdominal Exam: Soft, Normal Bowel Sounds. absent: Tenderness - Exam Additional comments: suprapubic tenderness - Back Exam Back Exam: CVA tenderness (L) (left CVA tenderness greater than right), CVA tenderness (R) - Neurological Exam Neurological Exam: Alert, Awake - Psychiatric Exam Psychiatric exam: Normal Affect - Skin Skin Exam: Warm Assessment and Plan - Assessment and Plan (Free Text) Assessment: (1) Pyelonephritis due to Escherichia coli History of Neprolithaisis Hematuria Assessment & Plan: * Urology (Dr. Yudy Umanzor) on consult-->help appreciated * Infectious Disease (Dr. Salomon) on consult-->help appreciated * ABx switched to Meropenem 1 gram IV Q 8H 02/07/18 * Patient has severe pain and is unable to relax despite 4mg of morphine. * CT abdomen/pelvis w/o PO and IV contrast (02/07/18): no obstructive uropathy or evidence of recently passed calculus. Nonspecific left perinephric stranding for which pyelonephritis cannot be excluded on this enhanced on CT * Renal US (02/07/18): mild thickening versus underdistention of the urinary bladder. 1 cm of left renal cyst. If hematuria persists, consider correlation w hematuria protocol CT scan * Note: patient received dose of Pyridum in ER; though she has history of anemia ; will continue to monitor urine output for hematuria * Pain PRN * oxycodone 5mg q8 prn moderate pain * toradol q6prn severe pain * morphine and dilaudid was not being given due to low blood pressure * IV fluids: LR 150/cchr * Florastor 250mg PO BID * Blood culture (02/06/18): no growth 48 h * urine culture (02/06/19): E. coli, sensitive to meropenem; repeat culture sent today (02/09) Status: Acute (2) History of Anemia Assessment & Plan: * Patient has history of menorrhagia, awaiting outpatient evaluation by [employer] * retic count 0.6, ferritin 33.4; will hold on starting iron in light of current infection * Type and screen ordered * Hgb drop from 10.6 to 9.2 to 8.9, now increased to 9.1- unclear if dilutional vs hematuria since patient has receive fluid bolus and on maintenance IV fluids (3) History of Depression Assessment & Plan: * Patient takes Fluoxetine and Trazodone as outpatient * Will hold Fluoxetine in light of liver function tests (4) Transaminitis Assessment & Plan: * continue to monitor LFTS- down trending * will hold tylenol/SSRI/zofran given LFTS (5) Prophylactic care Assessment & Plan: * No chemical indication secondary to hematuria, anemia, hx of menorrhagia * SCDS b/l <Loyda Martinez V - Last Filed: 02/12/18 16:14> Subjective - Date & Time of Evaluation Date of Evaluation: 02/09/18 Time of Evaluation: 10:00 Objective - Vital Signs/Intake and Output Vital Signs (last 24 hours): Temp Pulse Resp BP Pulse Ox 98.1 F 67 20 99/67 L 97 02/09/18 17:07 02/09/18 17:07 02/09/18 17:07 02/09/18 17:07 02/09/18 17:07 Intake and Output: 02/09/18 02/09/18 06:59 18:59 Intake Total 2800 Balance 2800 - Medications Medications: Current Medications Docusate Sodium (Colace) 100 mg PO BID [facility] Last Admin: 02/09/18 17:34 Dose: 100 mg Lactated Ringer's (Lactated Ringer's) 1,000 mls @ 150 mls/hr IV .Q6H40M [facility] Last Admin: 02/09/18 14:30 Dose: Not Given Meropenem 1 gm/ Sodium (Chloride) 100 mls @ 100 mls/hr IVPB Q8H [facility] PRN Reason: Protocol Last Admin: 02/09/18 17:35 Dose: 100 mls/hr Ketorolac Tromethamine (Toradol) 30 mg IVP Q6 PRN PRN Reason: Pain, severe (8-10) Oxycodone HCl (Oxycodone Immediate Release Tab) 5 mg PO Q8 [facility] Last Admin: 02/09/18 13:21 Dose: 5 mg Saccharomyces Boulardii (Florastor) 250 mg PO BID [facility] Last Admin: 02/09/18 17:35 Dose: 250 mg Trazodone HCl (Desyrel) 25 mg PO HS [facility] Last Admin: 02/08/18 22:15 Dose: 25 mg - Labs Labs: 02/09/18 07:46 02/09/18 07:46 PT 11.9 SECONDS (9.7-12.2) 02/07/18 00:55 INR 1.1 02/07/18 00:55 APTT 28 SECONDS (21-34) 02/07/18 00:55 Attending/Attestation - Attestation I have personally seen and examined this patient.: Yes I have fully participated in the care of the patient.: Yes I have reviewed all pertinent clinical information, including history, physical exam and plan: Yes Notes (Text): This is late computer entry for 02/09/18. Patient seen, examined, and case discussed with day-time resident. patient reporting mildly improving suprapubic and flank pains. Pain regiment adjusted. Toradol IV prn severe pain (3 dose) and oxycodone PRN moderate pain. Patient is not asking pain medication as needed though she has pain. We have explained to her to use the pain medication so she is not in pain. Patient finds success pain abated with NSAID. Liver enzymes are downtrending. Will continue IV abx and IV fluids. RepeatUA and Urine culture collected. Urine specimen no noted gross hematuria. Assessment/Plan (1) Pyelonephritis due to Escherichia coli History of Neprolithaisis Hematuria Assessment & Plan: * Urology (Dr. Yudy Umanzor) on consult-->help appreciated * Infectious Disease (Dr. Salomon) on consult-->help appreciated * ABx switched to Meropenem 1 gram IV Q 8H 02/07/18 * Patient has severe pain and is unable to relax despite 4mg of morphine. * CT abdomen/pelvis w/o PO and IV contrast (02/07/18): no obstructive uropathy or evidence of recently passed calculus. Nonspecific left perinephric stranding for which pyelonephritis cannot be excluded on this enhanced on CT * Renal US (02/07/18): mild thickening versus underdistention of the urinary bladder. 1 cm of left renal cyst. If hematuria persists, consider correlation w hematuria protocol CT scan * Note: patient received dose of Pyridum in ER; though she has history of anemia ; will continue to monitor urine output for hematuria * Pain PRN * oxycodone 5mg q6 prn * toradol x 2 doses * morphine and dilaudid was not being given due to low blood pressure * IV fluids: LR 150/cchr * Florastor 250mg PO BID * Blood culture (02/06/18): no growth 48 h * urine culture (02/06/19): E. coli, sensitive to meropenem; will repeated on 02/09. Status: Acute (2) History of Anemia Assessment & Plan: * Patient has history of menorrhagia, awaiting outpatient evaluation by [facility] * retic count 0.6, ferritin 33.4; will hold on starting iron in light of current infection * Type and screen ordered * Hgb drop from 10.6 to 9.2 to 8.9 unclear if dilutional vs hematuria since patient has receive fluid bolus and on maintenance IV fluids (3) History of Depression Assessment & Plan: * Patient takes Fluoxetine and Trazodone as outpatient * Will hold Fluoxetine in light of liver function tests (4) Transaminitis Assessment & Plan: * continue to monitor LFTS- down trending * will hold tylenol/SSRI/zofran given LFTS (5) Prophylactic care Assessment & Plan: * No chemical indication secondary to hematuria, anemia, hx of menorrhagia * SCDS b/l
--- NOTE | 2018-02-09 19:46 | CP.PCM.PN ---
Subjective - Date & Time of Evaluation Date of Evaluation: 02/09/18 Time of Evaluation: 04:00 - Subjective Subjective: dictated Objective - Vital Signs/Intake and Output Vital Signs (last 24 hours): Temp Pulse Resp BP Pulse Ox 98.1 F 67 20 99/67 L 97 02/09/18 17:07 02/09/18 17:07 02/09/18 17:07 02/09/18 17:07 02/09/18 17:07 Intake and Output: 02/09/18 02/10/18 18:59 06:59 Intake Total 2800 Balance 2800 - Medications Medications: Current Medications Docusate Sodium (Colace) 100 mg PO BID [facility] Last Admin: 02/09/18 17:34 Dose: 100 mg Lactated Ringer's (Lactated Ringer's) 1,000 mls @ 150 mls/hr IV .Q6H40M [facility] Last Admin: 02/09/18 14:30 Dose: Not Given Meropenem 1 gm/ Sodium (Chloride) 100 mls @ 100 mls/hr IVPB Q8H [facility] PRN Reason: Protocol Last Admin: 02/09/18 17:35 Dose: 100 mls/hr Ketorolac Tromethamine (Toradol) 30 mg IVP Q6 PRN PRN Reason: Pain, severe (8-10) Last Admin: 02/09/18 17:49 Dose: 30 mg Oxycodone HCl (Oxycodone Immediate Release Tab) 5 mg PO Q8 [facility] Last Admin: 02/09/18 13:21 Dose: 5 mg Saccharomyces Boulardii (Florastor) 250 mg PO BID [facility] Last Admin: 02/09/18 17:35 Dose: 250 mg Trazodone HCl (Desyrel) 25 mg PO HS [facility] Last Admin: 02/08/18 22:15 Dose: 25 mg - Labs Labs: 02/09/18 07:46 02/09/18 07:46 PT 11.9 SECONDS (9.7-12.2) 02/07/18 00:55 INR 1.1 02/07/18 00:55 APTT 28 SECONDS (21-34) 02/07/18 00:55 Assessment and Plan (1) Pyelonephritis due to Escherichia coli Status: Acute (2) Sepsis Status: Acute (3) UTI (urinary tract infection) Status: Acute (4) Chest wall pain Status: Acute
[2018-02-09] MEDS: traZODone 25 mg Tab PO SCH (21:32)
[2018-02-10] MEDS: Meropenem 1 GM in Sodium Chloride 0.9% 100 ML IVPB SCH ×3 (00:02→17:25)
--- NOTE | 2018-02-10 00:49 | CON ---
DATE: 02/07/2018 UROLOGY CONSULTATION REFERRING PHYSICIAN: Loyda Martinez DO REASON FOR CONSULTATION: Urinary tract infection. The patient is a 38-year-old female admitted with abdominal pain and flank pain. The patient has history of recurrent urinary tract infection. The patient reports that she has history of kidney stones as well. She is uncertain regarding the details of the stones. The patient now presents with a 1-week history of abdominal pain. The patient reports suprapubic pain. She also had urinary frequency. The patient reports she has had hematuria. There has been bilateral flank pain, left greater than the right. The patient reports the right flank pain has improved. The left flank pain has persisted. The patient had previous episode of nausea and vomiting. The patient has fair appetite. No further vomiting. The patient previously had a fever. She has been afebrile since this admission. PAST SURGICAL HISTORY: Cholecystectomy, appendectomy, and section. PHYSICAL EXAMINATION: GENERAL: The patient is a well-developed, well-nourished middle-aged female. The patient is awake and alert. The patient reports left flank pain. VITAL SIGNS: Stable. The patient is afebrile. ABDOMEN: Soft. There is moderate lower abdominal tenderness. No mass or organomegaly. There is left costovertebral angle tenderness. LABORATORY DATA: Reviewed. Hematocrit is 32, white blood count 9000. BUN 13, creatinine 0.6. Urinalysis reveals 114 white blood cells and four red blood cells per high-power field. I reviewed the CT scan. The CT scan demonstrates perinephric stranding on the left. There is no urolithiasis noted. IMPRESSION: 1. Urinary tract infection. 2. Pyelonephritis. 3. Abdominal pain. 4. Flank pain. 5. Pyuria. The patient has urinary tract infection. The patient is currently receiving antibiotic therapy. I discussed the case with the attending physician as well as with the Infectious Disease image consultant. Hydration. Continue antibiotic therapy. Monitor clinical course. Further therapy to follow according to the patient's clinical course. Thank you for recommending the patient for urology consultation. Yudy MD Noé cc: Loyda Martinez DO [facility] # [id number]
[2018-02-10] MEDS: Lactated Ringer's 1,000 ML IV SCH ×3 (05:29→21:39)
[2018-02-10] MEDS: oxyCODONE 5 mg Immediate Release Tab PO SCH (05:40)
[2018-02-10 07:14] LABS: BASO # 0.1 K/uL (0.0-0.2); BASO % 1.2 % (0.0-2.0); EOS # 0.2 K/uL (0.0-0.7); EOS % 4.7 % (0.0-4.0); HEMOGLOBIN 9.4 g/dL (11.0-16.0); LYMPH # 2.2 K/uL (1.0-4.3); LYMPH % 46.9 % (20.0-40.0); MEAN CELL VOLUME 80.5 fL (81.0-99.0); MEAN CORPUSCULAR HEMOGLOBIN 26.8 pg (27.0-31.0); MEAN CORPUSCULAR HGB CONC 33.2 g/dL (33.0-37.0); MEAN PLATELET VOLUME 8.6 fL (7.2-11.7); MONO # 0.5 K/uL (0.0-0.8); MONO % 11.3 % (0.0-10.0); NEUT # 1.7 K/uL (1.8-7.0); NEUT % 35.9 % (50.0-75.0); NRBC % 0.1 % (0.0-2.0); RBC 3.52 Mil/uL (3.80-5.20); RED CELL DISTRIBUTION WIDTH 21.2 % (11.5-14.5); WHITE BLOOD COUNT 4.7 K/uL (4.8-10.8)
[2018-02-10 07:37] LABS: ALB/GLOB RATIO 1.1 (1.0-2.1); ALBUMIN 3.2 g/dL (3.5-5.0); ALT/SGPT 146 U/L (9-52); AST/SGOT 69 U/L (14-36); BLOOD UREA NITROGEN 10 mg/dL (7-17); CALCIUM 8.5 mg/dl (8.6-10.4); GFR AFRICAN-AMERICAN > 60; GFR NON-AFRICAN AMERICAN > 60
--- NOTE | 2018-02-10 07:47 | PN ---
DATE: 02/09/2018 INFECTIOUS DISEASE FOLLOWUP SUBJECTIVE: I went to see the patient today, and she was complaining of headache, and she says she is not better. She still has suprapubic pain and left flank pain, and she said she is not better. She has been on pain medications, fluids, and IV antibiotics. PHYSICAL EXAMINATION: VITAL SIGNS: T-max is 98.1, pulse is 67, blood pressure 99/61, and respirations are 20. GENERAL: She complained of headache. She is alert and oriented x3. HEENT: Head is atraumatic, normocephalic, otherwise. NECK: Supple. LUNGS: Clear. HEART: S1 and S2 are regular. ABDOMEN: Soft and nontender and left CVA tenderness present. EXTREMITIES: Have no edema. LABORATORY DATA: Labs are noted. Whit count is 5.8, hemoglobin 9.1, hematocrit is 26.9, platelets count is 239. Chemistry showed sodium 138, potassium 3.8, chloride 105, CO2 is 26, anion gap is 10, BUN is 7, creatinine is 0.5, so this is unremarkable. Her AST was elevated, and it is coming down. Right now, AST is 78 and ALT is 159. Urine is better today, so it looks better, and her blood cultures were negative, and urine culture had only, which was very Cipro sensitive, actually I was going to change it to Cipro, but I saw that she is still with lot of pain, and she still does not look well, so I will continue meropenem at this time and wait for her to be seen by the urologist again tomorrow, and she had a bladder ultrasound which showed mild thickening versus under distension of the urinary bladder, 1 cm left renal cyst, and they were to consider with the hematuria protocol CAT scan, but at this time I would leave her on meropenem and IV fluids and see what is happening, as she did have abnormal CAT scan and that CAT did not show any stone. She has prior cholecystectomy and no obstructive uropathy or evidence of recently passed ____ calculus, nonspecific left perinephric stranding for which pyelonephritis cannot be excluded on enhanced CAT scan, so may be we should do a CAT scan with contrast or we wait for the urologist to evaluate. We will continue with meropenem at this time, and I think her headache is related to the problem at this time. Jose D Salomon MD
[2018-02-10] MEDS: Saccharomyces Boulardi 250 mg Cap PO SCH ×2 (09:45→17:25)
--- NOTE | 2018-02-10 09:56 | CP.PCM.PN ---
Subjective - Date & Time of Evaluation Date of Evaluation: 02/10/18 Time of Evaluation: 09:53 - Subjective Subjective: Patient seen and examined at bedside. Complaining of headache, left flank pain and leg pain. Able to ambulate without difficulty. Tolerating diet. Complaining of constipation. No other complaints at this time. Objective - Vital Signs/Intake and Output Vital Signs (last 24 hours): Temp Pulse Resp BP Pulse Ox 98.4 F 76 20 103/66 96 02/10/18 08:23 02/10/18 08:23 02/10/18 08:23 02/10/18 08:23 02/10/18 08:23 Intake and Output: 02/10/18 02/10/18 06:59 18:59 Intake Total 1140 1440 Balance 1140 1440 - Medications Medications: Current Medications Bisacodyl (Dulcolax) 5 mg PO ONCE ONE Stop: 02/10/18 09:49 Docusate Sodium (Colace) 100 mg PO BID [facility] Last Admin: 02/10/18 09:45 Dose: 100 mg Hydromorphone HCl (Dilaudid) 1 mg IVP Q4H PRN PRN Reason: Pain, severe (8-10) Meropenem 1 gm/ Sodium (Chloride) 100 mls @ 100 mls/hr IVPB Q8H [facility] PRN Reason: Protocol Last Admin: 02/10/18 08:46 Dose: 100 mls/hr Lactated Ringer's (Lactated Ringer's) 1,000 mls @ 100 mls/hr IV .Q10H [facility] Ketorolac Tromethamine (Toradol) 30 mg IVP Q6 PRN PRN Reason: Pain, Mild (1-3) Morphine Sulfate (Morphine) 2 mg IVP Q4 PRN PRN Reason: Pain, moderate (4-7) Ondansetron HCl (Zofran Inj) 4 mg IVP Q6H PRN PRN Reason: Nausea/Vomiting Saccharomyces Boulardii (Florastor) 250 mg PO BID [facility] Last Admin: 02/10/18 09:45 Dose: 250 mg Trazodone HCl (Desyrel) 25 mg PO HS [facility] Last Admin: 02/09/18 21:32 Dose: 25 mg - Labs Labs: 02/10/18 07:06 02/10/18 07:06 PT 11.9 SECONDS (9.7-12.2) 02/07/18 00:55 INR 1.1 02/07/18 00:55 APTT 28 SECONDS (21-34) 02/07/18 00:55 - Constitutional Appears: Well - Head Exam Head Exam: ATRAUMATIC, NORMAL INSPECTION, NORMOCEPHALIC - Eye Exam Eye Exam: EOMI, Normal appearance, PERRL Pupil Exam: NORMAL ACCOMODATION, PERRL - ENT Exam ENT Exam: Mucous Membranes Moist, Normal Exam - Neck Exam Neck Exam: Full ROM, Normal Inspection. absent: Lymphadenopathy - Respiratory Exam Respiratory Exam: Clear to Ausculation Bilateral, NORMAL BREATHING PATTERN - Cardiovascular Exam Cardiovascular Exam: REGULAR RHYTHM, +S1, +S2. absent: Murmur - GI/Abdominal Exam GI & Abdominal Exam: Soft, Tenderness (suprapubic), Normal Bowel Sounds. absent : Distended - Extremities Exam Extremities Exam: Full ROM, Normal Capillary Refill, Normal Inspection. absent : Joint Swelling, Pedal Edema - Back Exam Back Exam: CVA tenderness (L), NORMAL INSPECTION - Neurological Exam Neurological Exam: Alert, Awake, CN II-XII Intact, Normal Gait, Oriented x3 - Psychiatric Exam Psychiatric exam: Normal Affect, Normal Mood - Skin Skin Exam: Dry, Intact, Normal Color, Warm Assessment and Plan (1) Pyelonephritis due to Escherichia coli Assessment & Plan: Has been afebrile for over 72H. Urine culture E. coli resistant to ampicillin. Still having pain L. flank. On Merrem. CT did not show any obstructive uropathy but + for L. perinephric stranding. Continue antibiotics, hydration, pain control, antiemetics. Complaining of pain in the legs R>L with increased swelling and tenderness. Will decrease fluids to LR @ 100 and order doppler of the LE. Will repeat Renal US to R/O collection as she is continuing to have pain. Patient encouraged to ambulate. Status: Acute
[2018-02-10] MEDS ORDERED: HYDROmorphone 1 mg/ml ISec IVP PRN (10:00)
[2018-02-10] MEDS ORDERED: Bisacodyl 5mg EC Tab PO ONE (10:45)
--- NOTE | 2018-02-10 11:14 | US ---
Renal ultrasound History: Pyelonephritis. Evaluate for collection. Comparison: CT scan dated 02/07/2018 and ultrasound dated 02/07/2018 Technique: Real-time sonography was performed through the kidneys. Findings: Right kidney: 11.7 x 4.3 x 5.4 centimeters. No calculi or hydronephrosis. Left Kidney: 12.1 x 5 4 x 6.2 centimeters. No calculi or hydronephrosis. Midpole hypoechoic cyst measuring 1.0 x 0.5 x 0.7 centimeters. Visualized aorta is grossly preserved. Visualized urinary bladder is grossly preserved. Impression: 1 centimeter left renal cyst. Otherwise unremarkable sonographic evaluation of the kidneys. If there is concern for pyelonephritis, correlation with a contrast-enhanced CT scan of the abdomen and pelvis may be helpful for further evaluation.
--- NOTE | 2018-02-10 12:49 | VASCLAB ---
PROCEDURE: Lower Extremity Venous Duplex Exam. HISTORY: swelling, increased tenderness PRIORS: None. TECHNIQUE: Bilateral common femoral, femoral, popliteal and posterior tibial, peroneal and great saphenous veins were evaluated. Flow was assessed with color Doppler, compressibility, assessment of phasic flow and augmentation response. Report prepared by Addison Vila, T FINDINGS: RIGHT: 1. Common Femoral Vein: 1.1. Compressibility - Fully compressible: Thrombus - None : Flow - Phasic: Augmentation -Normal: Reflux - . 2. Femoral Vein: 2.1. Compressibility - Fully compressible: Thrombus - None : Flow - Phasic: Augmentation -Normal: Reflux - . 3. Popliteal Vein: 3.1. Compressibility - Fully compressible: Thrombus - None : Flow - Phasic: Augmentation -Normal: Reflux - . 4. Posterior Tibial Vein: 4.1. Compressibility - Fully compressible: Thrombus - None: Flow - : Augmentation -: Reflux - . 5. Peroneal Vein: 5.1. Compressibility - Fully compressible: Thrombus - None: Flow - : Augmentation -: Reflux - . 6. Great Saphenous Vein: 6.1. Compressibility - Fully compressible: Thrombus - None: Flow - Phasic: Augmentation - : Reflux - . LEFT: 1. Common Femoral Vein: 1.1. Compressibility - Fully compressible: Thrombus - None: Flow - Phasic: Augmentation -Normal: Reflux - . 2. Femoral Vein: 2.1. Compressibility - Fully compressible: Thrombus - None: Flow - Phasic: Augmentation -Normal: Reflux - . 3. Popliteal Vein: 3.1. Compressibility - Fully compressible: Thrombus - None : Flow - Phasic: Augmentation -Normal: Reflux - . 4. Posterior Tibial Vein: 4.1. Compressibility - Fully compressible: Thrombus - None: Flow - : Augmentation -: Reflux - . 5. Peroneal Vein: 5.1. Compressibility - Fully compressible: Thrombus - None: Flow - : Augmentation -: Reflux - . 6. Great Saphenous Vein: 6.1. Compressibility - Fully compressible: Thrombus - None: Flow - Phasic: Augmentation - : Reflux - . OTHER FINDINGS: Right: None significant. Left: None significant. IMPRESSION: Right: No evidence of deep or superficial vein thrombosis of the right lower extremity. Left: No evidence of deep or superficial vein thrombosis of the left lower extremity.
[2018-02-10] MEDS: traZODone 25 mg Tab PO SCH (21:38)
--- NOTE | 2018-02-10 22:44 | PCM.URO ---
Urology Progress Note - General General: Tolerating Diet - Subjective Abdominal Pain: Yes Flank Pain: Yes (Less) Nausea: No Vomiting: No Voiding Well: Yes Dysuria: No Hematuria: No [place]: Yes Dsypnea: No Chest Pain: No Fever & Chills: No - Objective Lab Studies: Reviewed (culture- negative anemia normal wbc cret=0.6) Lab Results Last 24 Hours: Laboratory Results - last 24 hr 02/10/18 02/10/18 07:06 07:06 WBC 4.7 L RBC 3.52 L Hgb 9.4 L Hct 28.3 L MCV 80.5 L MCH 26.8 L MCHC 33.2 RDW 21.2 H Plt Count 252 MPV 8.6 Neut % (Auto) 35.9 L Lymph % (Auto) 46.9 H [place] % (Auto) 11.3 H Eos % (Auto) 4.7 H Baso % (Auto) 1.2 Neut # (Auto) 1.7 L Lymph # (Auto) 2.2 [place] # (Auto) 0.5 Eos # (Auto) 0.2 Baso # (Auto) 0.1 Sodium 140 Potassium 4.0 Chloride 104 Carbon Dioxide 27 Anion Gap 12 BUN 10 Creatinine 0.6 L Est GFR ( Amer) > 60 Est GFR (Non-Af Amer) > 60 Random Glucose 79 Calcium 8.5 L Phosphorus 3.3 Magnesium 1.9 Total Bilirubin 0.4 AST 69 H ALT 146 H Alkaline Phosphatase 103 Total Protein 6.1 L Albumin 3.2 L Globulin 2.9 Albumin/Globulin Ratio 1.1 Intake & Output: Intake & Output 02/10/18 02/10/18 02/11/18 06:59 18:59 06:59 Intake Total 1140 2720 650 Balance 1140 2720 650 Intake: Intake, IV Amount 800 2000 400 Left Antecubital 800 2000 400 Oral 340 720 250 Other: # Voids Urine, Voided 3 3 4 # Bowel Movements 0 Vital Signs: Vital Signs - 24 hr 02/10/18 02/10/18 02/10/18 00:00 08:23 16:00 Temperature 98 F 98.4 F 98.1 F Pulse Rate 75 76 73 Respiratory 20 20 20 Rate Blood Pressure 103/67 103/66 108/64 O2 Sat by Pulse 100 96 96 Oximetry Imaging Studies: Reviewed - Physical Exam Abdominal Exam: Soft, Non-Distended. absent: Non-Tender Back: CVA Tenderness (L cva tenderness) Urine Color: Yellow - Plan Additional Information: IMP: UTI. L pyelonephritis. Still with pain. Rec/P: Hydrtion. Condtinue antibiotic Rx. Discussed w pt and medical staff - Date & Time of Note Date: 02/10/18 Time: 12:45
[2018-02-11] MEDS: Meropenem 1 GM in Sodium Chloride 0.9% 100 ML IVPB SCH ×2 (00:50→10:00)
[2018-02-11 06:25] LABS: BASO # 0.1 K/uL (0.0-0.2); EOS # 0.2 K/uL (0.0-0.7); EOS % 3.4 % (0.0-4.0); HEMOGLOBIN 9.8 g/dL (11.0-16.0); LYMPH # 2.5 K/uL (1.0-4.3); MEAN CELL VOLUME 80.2 fL (81.0-99.0); MEAN CORPUSCULAR HEMOGLOBIN 26.7 pg (27.0-31.0); MEAN CORPUSCULAR HGB CONC 33.4 g/dL (33.0-37.0); MEAN PLATELET VOLUME 8.3 fL (7.2-11.7); MONO # 0.6 K/uL (0.0-0.8); MONO % 10.4 % (0.0-10.0); NEUT # 2.1 K/uL (1.8-7.0); NEUT % 39.2 % (50.0-75.0); NRBC % 0.1 % (0.0-2.0); RBC 3.66 Mil/uL (3.80-5.20); RED CELL DISTRIBUTION WIDTH 21.6 % (11.5-14.5); WHITE BLOOD COUNT 5.4 K/uL (4.8-10.8)
[2018-02-11 07:38] LABS: ALB/GLOB RATIO 1.2 (1.0-2.1); ALBUMIN 3.4 g/dL (3.5-5.0); ALT/SGPT 123 U/L (9-52); AST/SGOT 53 U/L (14-36); BLOOD UREA NITROGEN 8 mg/dL (7-17); CALCIUM 8.8 mg/dl (8.6-10.4); GFR AFRICAN-AMERICAN > 60; GFR NON-AFRICAN AMERICAN > 60
[2018-02-11] MEDS: Lactated Ringer's 1,000 ML IV SCH (08:36)
[2018-02-11 10:02] VITALS: BP 100/60; PULSE 63; TEMP 98.2; O2SAT 99
[2018-02-11] MEDS: Saccharomyces Boulardi 250 mg Cap PO SCH (11:14)
[2018-02-11] MEDS ORDERED: Pneumococcal 23-Valent Vaccine IM ONE (13:37)
--- NOTE | 2018-02-11 14:00 | CP.PCM.DIS ---
Provider - Provider Date of Admission: 02/07/18 15:48 Attending physician: Olu Willoughby MD Primary care physician: Clinic Consults: Uro: Eric Umanzor ID: [id number] Time Spent in preparation of Discharge (in minutes): 45 Diagnosis - Discharge Diagnosis (1) Pyelonephritis due to Escherichia coli Status: Acute Hospital Course - Lab Results Lab Results: Micro Results 02/06/18 23:30 Blood-Venous Blood Culture - Preliminary NO GROWTH AFTER 4 DAYS 02/06/18 00:01 Blood-Venous Blood Culture - Preliminary NO GROWTH AFTER 4 DAYS 02/09/18 11:16 Urine,Catheterized Urine Culture - Final No Growth (<1,000 CFU/ML) 02/06/18 20:20 Urine,Clean Catch Urine Culture - Final Escherichia Coli Most Recent Lab Values WBC 5.4 K/uL (4.8-10.8) 02/11/18 06:18 RBC 3.66 Mil/uL (3.80-5.20) L 02/11/18 06:18 Hgb 9.8 g/dL (11.0-16.0) L 02/11/18 06:18 Hct 29.3 % (34.0-47.0) L 02/11/18 06:18 MCV 80.2 fL (81.0-99.0) L 02/11/18 06:18 MCH 26.7 pg (27.0-31.0) L 02/11/18 06:18 MCHC 33.4 g/dL (33.0-37.0) 02/11/18 06:18 RDW 21.6 % (11.5-14.5) H 02/11/18 06:18 Plt Count 306 K/uL (130-400) 02/11/18 06:18 MPV 8.3 fL (7.2-11.7) 02/11/18 06:18 Neut % (Auto) 39.2 % (50.0-75.0) L 02/11/18 06:18 Lymph % (Auto) 46.0 % (20.0-40.0) H 02/11/18 06:18 [place] % (Auto) 10.4 % (0.0-10.0) H 02/11/18 06:18 Eos % (Auto) 3.4 % (0.0-4.0) 02/11/18 06:18 Baso % (Auto) 1.0 % (0.0-2.0) 02/11/18 06:18 Neut # (Auto) 2.1 K/uL (1.8-7.0) 02/11/18 06:18 Lymph # (Auto) 2.5 K/uL (1.0-4.3) 02/11/18 06:18 [place] # (Auto) 0.6 K/uL (0.0-0.8) 02/11/18 06:18 Eos # (Auto) 0.2 K/uL (0.0-0.7) 02/11/18 06:18 Baso # (Auto) 0.1 K/uL (0.0-0.2) 02/11/18 06:18 Neutrophils % (Manual) 83 % (50-75) H 02/06/18 20:26 Band Neutrophils % 1 % (0-2) 02/06/18 20:26 Lymphocytes % (Manual) 11 % (20-40) L 02/06/18 20:26 Monocytes % (Manual) 3 % (0-10) 02/06/18 20:26 Eosinophils % (Manual) 2 % (0-4) 02/06/18 20:26 Differential Comment 02/08/18 06:18 Platelet Estimate Normal (NORMAL) 02/06/18 20:26 Microcytosis (manual) Slight 02/06/18 20:26 Retic Count 0.6 % (0.5-1.5) 02/07/18 16:35 PT 11.9 SECONDS (9.7-12.2) 02/07/18 00:55 INR 1.1 02/07/18 00:55 APTT 28 SECONDS (21-34) 02/07/18 00:55 Puncture Site Rba 02/06/18 21:57 pCO2 31 mm/Hg (35-45) L 02/06/18 21:57 pO2 106 mm/Hg (80-100) H 02/06/18 21:57 HCO3 23.3 mmol/L (21-28) 02/06/18 21:57 ABG pH 7.44 (7.35-7.45) 02/06/18 21:57 ABG Total CO2 22.1 mmol/L (22-28) 02/06/18 21:57 ABG O2 Saturation 99.3 % (95-98) H 02/06/18 21:57 ABG Base Excess -2.1 mmol/L (-2.0-3.0) L 02/06/18 21:57 Ellis Test Pos 02/06/18 21:57 ABG Potassium 3.2 mmol/L (3.6-5.2) L 02/06/18 21:57 A-a O2 Difference 5.0 mm/Hg 02/06/18 21:57 Respiratory Index 0 02/06/18 21:57 Sodium 135.0 mmol/l (132-148) 02/06/18 21:57 Chloride 107.0 mmol/L (98-107) 02/06/18 21:57 Glucose 91 mg/dl (65-105) 02/06/18 21:57 Lactate 0.6 mmol/L (0.7-2.1) L 02/06/18 21:57 Liter Flow 0 02/06/18 21:57 FiO2 21.0 % 02/06/18 21:57 Sodium 141 mmol/L (132-148) 02/11/18 06:18 Potassium 4.3 mmol/L (3.6-5.2) 02/11/18 06:18 Chloride 105 mmol/L (98-107) 02/11/18 06:18 Carbon Dioxide 27 mmol/L (22-30) 02/11/18 06:18 Anion Gap 13 (10-20) 02/11/18 06:18 BUN 8 mg/dL (7-17) 02/11/18 06:18 Creatinine 0.5 mg/dL (0.7-1.2) L 02/11/18 06:18 Est GFR ( Amer) > 60 02/11/18 06:18 Est GFR (Non-Af Amer) > 60 02/11/18 06:18 Random Glucose 82 mg/dL (65-105) 02/11/18 06:18 Calcium 8.8 mg/dl (8.6-10.4) 02/11/18 06:18 Phosphorus 3.3 mg/dL (2.5-4.5) 02/11/18 06:18 Magnesium 1.9 mg/dL (1.6-2.3) 06/12/18 06:18 Iron 24 ug/dL (37-170) L 02/07/18 16:35 TIBC 412 ug/dL (250-450) 02/07/18 16:35 % Saturation 6 (20-55) L 02/07/18 16:35 Ferritin 33.4 ng/mL 02/07/18 16:35 Total Bilirubin 0.5 mg/dL (0.2-1.3) 02/11/18 06:18 AST 53 U/L (14-36) H D 02/11/18 06:18 ALT 123 U/L (9-52) H 02/11/18 06:18 Alkaline Phosphatase 89 U/L (38-126) 02/11/18 06:18 Total Protein 6.3 g/dL (6.3-8.3) 02/11/18 06:18 Albumin 3.4 g/dL (3.5-5.0) L 02/11/18 06:18 Globulin 2.9 gm/dL (2.2-3.9) 02/11/18 06:18 Albumin/Globulin Ratio 1.2 (1.0-2.1) 02/11/18 06:18 Lipase 142 U/L (23-300) 02/06/18 20:26 Vitamin B12 474 pg/mL (239-931) 02/07/18 16:35 Folate 12.6 ng/mL 02/07/18 16:35 Procalcitonin 0.21 NG/ML (0.19-0.49) 02/07/18 14:57 Arterial Blood Potassium 3.2 mmol/L (3.6-5.2) L 02/06/18 21:57 Urine Color Straw (YELLOW) 02/09/18 17:22 Urine Clarity Clear (Clear) 02/09/18 17:22 Urine pH 7.0 (5.0-8.0) 02/09/18 17:22 Ur Specific [place] 1.004 (1.003-1.030) 02/09/18 17:22 Urine Protein Negative mg/dL (NEGATIVE) 02/09/18 17:22 Urine Glucose (UA) Normal mg/dL (Normal) 02/09/18 17:22 Urine Ketones Negative mg/dL (NEGATIVE) 02/09/18 17:22 Urine Blood Negative (NEGATIVE) 06/10/18 17:22 Urine Nitrate Negative (NEGATIVE) 02/09/18 17:22 Urine Bilirubin Negative (NEGATIVE) 02/09/18 17:22 Urine Urobilinogen Normal mg/dL (0.2-1.0) 02/09/18 17:22 Ur Leukocyte Esterase Neg [place]/uL (Negative) 02/09/18 17:22 Urine WBC (Auto) < 1 /hpf (0-5) 02/09/18 17:22 Urine RBC (Auto) 4 /hpf (0-3) H 02/06/18 20:43 Ur Squamous Epith Cells 1 /hpf (0-5) 02/09/18 17:22 Urine Bacteria Mod (<OCC) H 02/06/18 20:43 Urine HCG, Qual Negative (NEGATIVE) 02/06/18 20:20 Blood Type O POSITIVE 02/07/18 16:35 Antibody Screen Positive 02/07/18 16:35 Antibody Identification Anti Jka 02/07/18 16:35 Antigen Identification Jka Antigen - NEGATIVE 02/07/18 16:35 - Hospital Course Hospital Course: On Admission: 38-year-old female presents to the ED for evaluation of suprapubic pain for 1 week. Patient reports 1 week of painful and burning urination with reddish urine , back pain, and pain in bilateral lower extremities when walking. Patient reports fevers and chills which started yesterday, Tmax 103. Patient denies taking medication for pain. Patient states this is the first episode. Patient reports dizziness, chest pain, shortness of breath, and cough which started today. Patient denies nausea/vomiting/diarrhea/constipation, numbness/ paresthesia in extremities, saddle anesthesia. LMP was January 15. Review of records shows patient was admitted in October 2017 for symptomatic anemia secondary to uterine fibroids. Patient has since followed up with OBGYN who recommends hysterectomy but patient has not had surgery yet due to not being able to afford it at this time. Hospital Course: Patient had pain controlled with morphine. Started on rocephin, switched to maxipime then switched to Merrem by ID. Culture came with E.Coli sensitive to call but amoxicillin. Symptoms resolved. Patient remained afebrile. Patient was discharged home on Cipro for 10 days with instructions to follow up with her PMD. Renal US x2 was negative. Discharge Exam - Head Exam Head Exam: ATRAUMATIC, NORMAL INSPECTION, NORMOCEPHALIC - Eye Exam Eye Exam: EOMI, Normal appearance, PERRL Pupil Exam: NORMAL ACCOMODATION, PERRL - Respiratory Exam Respiratory Exam: Clear to PA & Lateral, NORMAL BREATHING PATTERN, UNREMARKABLE - Cardiovascular Exam Cardiovascular Exam: REGULAR RHYTHM. absent: Tachycardia - GI/Abdominal Exam GI & Abdominal Exam: Normal Bowel Sounds, Soft, Unremarkable. absent: Distended , Tenderness - Neurological Exam Neurological exam: Alert, CN II-XII Intact, Normal Gait, Oriented x3, Reflexes Normal - Psychiatric Exam Psychiatric exam: Normal Affect, Normal Mood - Skin Skin Exam: Dry, Intact, Normal Color, Warm Discharge Plan - Discharge Medications Prescriptions: Ciprofloxacin HCl [Cipro] 500 mg PO BID 10 Days tablet Ondansetron ODT [Zofran ODT] 4 mg PO Q8 #12 odt Ondansetron ODT [Zofran ODT] 4 mg PO Q6H 10 Days odt - Follow Up Plan Condition: FAIR Disposition: HOME/ ROUTINE Instructions: Sepsis in Adults, Ciprofloxacin (Systemic), Urinary Tract Infection, Adult (DC), Ondansetron, Urinary Tract Infection in Women (DC), Urinary Tract Infection in Men (DC), Dysuria (GEN) Additional Instructions: Please follow up with your primary doctor in 7-10 days. If you do not have a primary care doctor please follow up in our clinic. I have attached the information to our clinic. Please take Ciprofloxacin 500mg by mouth twice daily for 14 days. Please come back to the ED if symptoms return.
== END 2018-02-11 14:00 | disposition home or self-care (01) | DRG 690 ==
LOC: C.ER 19:46 → C.9E 23:03 → C.5S 23:39 → OBSVTOIN 02-07 15:48 → C.3T 02-07 20:00
PROVIDERS: ADMIT Family Medicine; ATTEND Family Medicine
DX: N12 Tubulo-interstitial nephritis, not specified as acute or chronic (principal); B96.20 Unspecified Escherichia coli [E. coli] as the cause of diseases classified elsewhere; D64.9 Anemia, unspecified; K21.9 Gastro-esophageal reflux disease without esophagitis; D25.9 Leiomyoma of uterus, unspecified; K59.00 Constipation, unspecified; Z87.440 Personal history of urinary (tract) infections; Z87.442 Personal history of urinary calculi; Z90.49 Acquired absence of other specified parts of digestive tract

== ENCOUNTER 2018-03-11 01:10 | Emergency (ER) | payer OTHER, SELFPAY ==
[2018-03-11 01:10] VITALS: BMI 24.5
[2018-03-11 01:19] VITALS: O2SAT 100
[2018-03-11 02:45] LABS: BASO # 0.1 K/uL (0.0-0.2); BASO % 0.8 % (0.0-2.0); EOS # 0.1 K/uL (0.0-0.7); EOS % 1.5 % (0.0-4.0); HEMOGLOBIN 10.9 g/dL (11.0-16.0); LYMPH # 1.9 K/uL (1.0-4.3); LYMPH % 25.2 % (20.0-40.0); MEAN CELL VOLUME 80.2 fL (81.0-99.0); MEAN CORPUSCULAR HEMOGLOBIN 26.2 pg (27.0-31.0); MEAN CORPUSCULAR HGB CONC 32.6 g/dL (33.0-37.0); MEAN PLATELET VOLUME 8.7 fL (7.2-11.7); MONO # 0.6 K/uL (0.0-0.8); MONO % 7.2 % (0.0-10.0); NEUT % 65.3 % (50.0-75.0); RBC 4.17 Mil/uL (3.80-5.20); RED CELL DISTRIBUTION WIDTH 15.2 % (11.5-14.5); WHITE BLOOD COUNT 7.7 K/uL (4.8-10.8)
[2018-03-11 03:09] LABS: BARBITURATES, UR NEGATIVE (NEGATIVE); BENZODIAZEPINES, UR NEGATIVE (NEGATIVE); OPIATES, UR NEGATIVE (NEGATIVE); PHENCYCLIDINE, UR NEGATIVE (NEGATIVE)
[2018-03-11 03:12] LABS: SQUAMOUS EPITHIAL 44 /hpf (0-5); URINE BILIRUBIN NEGATIVE (NEGATIVE); URINE BLOOD 3+ (NEGATIVE); URINE CLARITY Turbid (Clear); URINE COLOR Red (YELLOW); URINE GLUCOSE (UA) 1+ mg/dL (Normal); URINE LEUKOCYTE ESTERASE NEG Leu/uL (Negative); URINE PROTEIN 2+ mg/dL (NEGATIVE); URINE UROBILINOGEN NORMAL mg/dL (0.2-1.0)
[2018-03-11 03:24] LABS: ALB/GLOB RATIO 1.3 (1.0-2.1); ALBUMIN 4.4 g/dL (3.5-5.0); ALT/SGPT 38 U/L (9-52); AST/SGOT 26 U/L (14-36); BLOOD UREA NITROGEN 10 mg/dL (7-17); CALCIUM 9.4 mg/dl (8.6-10.4); GFR AFRICAN-AMERICAN > 60; GFR NON-AFRICAN AMERICAN > 60
--- NOTE | 2018-03-11 03:39 | C.PDOC ---
History Of Present Illness 38 y/o female with Hx of depression and anxiety presents to ED for complaints of feeling depressed. Patient also reports headache from crying after she had an argument with her boyfriend, lower back pain, and dysuria. Patient states she missed her appointment with her psychiatrist and ran out of medications. Patient is currently requesting psychiatric evaluation. Patient also states she was treated for UTI a month ago and is concerned symptoms are reoccurring. Denies SI, HI or any other physical complaints. Time Seen by Provider: 03/11/18 01:47 Chief Complaint (Nursing): Medical Clearance Past Medical History Vital Signs: Last Vital Signs Temp 97.7 F 03/11/18 04:34 Pulse 85 03/11/18 04:34 Resp 17 03/11/18 04:34 BP 99/64 L 03/11/18 04:34 Pulse Ox 100 03/11/18 04:34 - Medical History PMH: Anemia, Depression, Migraine Denies: Diabetes, Hepatitis, HIV, HTN, Chronic Kidney Disease, Seizures, Sexually Transmitted Disease Surgical History: Appendectomy, Cholecystectomy, - [facility] Procedures EXCISION OF DUODENUM, ENDO, DIAGN (11/27/17) EXCISION OF STOMACH, ENDO, DIAGN (11/27/17) TRANSFUSE NONAUT RED BLOOD CELLS IN PERIPH VEIN, PERC (11/27/17) Family History: States: Unknown Family Hx - Social History Hx Tobacco Use: No Hx Alcohol Use: No Hx Substance Use: No - Immunization History Hx Tetanus Toxoid Vaccination: No Hx Influenza Vaccination: No Hx Pneumococcal Vaccination: No Review Of Systems Constitutional: Negative for: Fever, Chills Gastrointestinal: Negative for: Nausea, Vomiting, Abdominal Pain, Diarrhea Genitourinary: Positive for: Dysuria Musculoskeletal: Positive for: Back Pain (Lower) Skin: Negative for: Rash Neurological: Positive for: Headache. Negative for: Weakness, Numbness Psych: Positive for: Anxiety, Depression. Negative for: Suicidal ideation Physical Exam - Physical Exam Appears: Well, Non-toxic, No Acute Distress Skin: Normal Color, Warm, Dry, No Rash Head: Atraumatic, Normacephalic Eye(s): bilateral: Normal Inspection, PERRL, EOMI Oral Mucosa: Moist Neck: Supple Chest: Symmetrical Cardiovascular: Rhythm Regular Respiratory: Normal Breath Sounds, No Decreased Breath Sounds, No Rales, No Rhonchi, No Wheezing Gastrointestinal/Abdominal: Soft, No Tenderness, No Distention Back: Normal Inspection, No CVA Tenderness, No Vertebral Tenderness Extremity: Normal ROM, No Deformity Extremity: Bilateral: Atraumatic, Normal Color And Temperature, Normal ROM Neurological/Psych: Oriented x3, Normal Speech Gait: Steady ED Course And Treatment - Laboratory Results Result Diagrams: 03/11/18 02:38 03/11/18 02:38 O2 Sat by Pulse Oximetry: 100 (RA) Pulse Ox Interpretation: Normal Progress Note: Adminsitered Motrin. Ordered blood work and UA. Crisis notified. Macrobid PO ordered. Pt is medically cleared for crisis evaluation. If pt will be dc home macrobid PO can be prescribed Disposition - Disposition Disposition: HOME/ ROUTINE Disposition Time: 06:30 Condition: STABLE Forms: [facility] (Kazakh) - Clinical Impression Clinical Impression: Depression, Urinary tract infection - PA / TOP CLEANER / Resident Statement MD/DO has reviewed & agrees with the documentation as recorded. - Scribe Statement The provider has reviewed the documentation as recorded by the Scribmaxwell Diaz All medical record entries made by the Scribe were at my direction and personally dictated by me. I have reviewed the chart and agree that the record accurately reflects my personal performance of the history, physical exam, medical decision making, and the department course for this patient. I have also personally directed, reviewed, and agree with the discharge instructions and disposition. Physician Patient Turnover Patient Signed Over To: Elinor Lyman Handoff Comments: pending crisis evaluation
[2018-03-11 08:45] VITALS: BP 117/77; PULSE 75; RESP 16; TEMP 98.9
== END 2018-03-11 09:37 | disposition home or self-care (01) ==
LOC: C.ER 01:10
DX: N39.0 Urinary tract infection, site not specified (principal); F32.9 Major depressive disorder, single episode, unspecified